=== PATIENT | female | born 1940 | race African-American/Black ===

== ENCOUNTER 2020-02-27 08:35 | Outpatient (REF) | payer MEDICARE, SELFPAY ==
[2020-02-27 10:22] LABS: MANUAL DIFF FLAG NO
[2020-02-27 10:25] LABS: Basophils Percent Auto 0.9 % (0-2); Eosinophils Absolute Auto 0.2 X10*3/uL (0.0-0.4); Eosinophils Percent Auto 3.3 % (0-4); Hematocrit 39.7 % (37-47); Hemoglobin 12.8 g/dl (12.0-16.0); Lymphocytes Absolute Auto 2.1 X10*3/uL (1.2-4.9); Lymphocytes Percent Auto 47.8 % (20-40); Mean Corpuscular HGB Conc 32.2 g/dl (31.0-35.0); Mean Corpuscular Hemoglobin 28.9 pg (27.0-33.0); Mean Corpuscular Volume 89.6 fL (80-98); Mean Platelet Volume 10.3 fL (9.4-12.3); Monocytes Absolute Auto 0.4 X10*3/uL (0.1-1.2); Monocytes Percent Auto 9.8 % (2-11); Neutrophils Absolute Auto 1.7 X10*3/uL (2.0-8.3); Neutrophils Percent Auto 38.2 % (45-73); Platelet Count 197 X10*3/uL (160-400); Red Blood Count 4.43 X10*6/uL (4.20-5.50); Red Cell Distribution Width 12.7 % (11.0-16.0); White Blood Count 4.5 X10*3/uL (4.8-10.8)
[2020-02-27 11:05] LABS: Alanine Aminotransferase 14 U/L (0-31); Albumin Level 4.1 g/dL (3.5-5.0); Alkaline Phosphatase 82 U/L (39-117); Anion Gap 13 (12-20); Aspartate Amino Transferase 12 U/L (5-31); Bilirubin Total 0.6 mg/dL (0.0-1.0); Blood Urea Nitrogen 16 mg/dL (9-16); Carbon Dioxide 26 mmol/L (22-29); Chloride 106 mmol/L (96-108); Cholesterol 125 mg/dL; Estimated Glomerular Filt Rate > 60; Glucose Fasting 109 mg/dL (60-99); HDL Cholesterol 48 mg/dL; LDL Cholesterol Calculated 67 mg/dl; Potassium 3.9 mmol/l (3.3-5.1); Sodium 141 mmol/L (135-145); Total Protein 6.9 g/dL (6.5-8.0); Triglycerides 51 mg/dL
[2020-02-27 11:25] LABS: Thyroid Stimulating Hormone 0.39 uIU/mL (0.32-4.0); Vitamin D 25-OH Total 25.4 ng/mL (>30)
[2020-02-27 11:27] LABS: Folate 12.5 ng/mL (> or = 4.0); Vitamin B12 240 pg/mL (200-900)
[2020-02-27 11:31] LABS: T4 Thyroxine 7.5 ug/dL (4.5-12.0)
== END 2020-02-27 08:36 | disposition home or self-care (01) ==
LOC: HO.10HDL 08:35
PROVIDERS: Visit Provider Internal Medicine
DX: Z00.00 Encounter for general adult medical examination without abnormal findings (principal); E11.65 Type 2 diabetes mellitus with hyperglycemia; I10 Essential (primary) hypertension; J44.9 Chronic obstructive pulmonary disease, unspecified; E78.00 Pure hypercholesterolemia, unspecified
CPT/HCPCS: 36415; 80053; 80061; 82306; 82607; 82746; 84436; 84443; 85025

== ENCOUNTER 2020-08-28 08:19 | Outpatient (REF) | payer MEDICARE, SELFPAY ==
[2020-08-28 10:12] LABS: MANUAL DIFF FLAG NO
[2020-08-28 10:15] LABS: Basophils Percent Auto 0.6 % (0-2); Eosinophils Absolute Auto 0.3 X10*3/uL (0.0-0.4); Eosinophils Percent Auto 5.7 % (0-4); Hematocrit 38.8 % (37-47); Hemoglobin 12.4 g/dl (12.0-16.0); Imm Gran Abs Auto 0.01 X10*3/uL (0.00-0.03); Imm Gran Pct Auto 0.2 % (0.0-0.4); Lymphocytes Absolute Auto 1.8 X10*3/uL (1.2-4.9); Lymphocytes Percent Auto 37.2 % (20-40); Mean Corpuscular Hemoglobin 27.8 pg (27.0-33.0); Mean Platelet Volume 10.2 fL (9.4-12.3); Monocytes Absolute Auto 0.5 X10*3/uL (0.1-1.2); Monocytes Percent Auto 10.6 % (2-11); Neutrophils Absolute Auto 2.2 X10*3/uL (2.0-8.3); Neutrophils Percent Auto 45.7 % (45-73); Platelet Count 235 X10*3/uL (160-400); Red Blood Count 4.46 X10*6/uL (4.20-5.50); Red Cell Distribution Width 13.2 % (11.0-16.0); White Blood Count 4.7 X10*3/uL (4.8-10.8)
[2020-08-28 10:22] LABS: Estimated Average Glucose 140 mg/dL; Hemoglobin A1c % 6.5 %
[2020-08-28 10:44] LABS: Alanine Aminotransferase 9 U/L (0-31); Alkaline Phosphatase 90 U/L (39-117); Anion Gap 16 (12-20); Aspartate Amino Transferase 13 U/L (5-31); Bilirubin Total 0.7 mg/dL (0.0-1.0); Blood Urea Nitrogen 14 mg/dL (9-16); Calcium 9.9 mg/dL (8.4-10.2); Carbon Dioxide 25 mmol/L (22-29); Chloride 104 mmol/L (96-108); Cholesterol 113 mg/dL; Estimated Glomerular Filt Rate > 60; Glucose Random 119 mg/dL (60-115); HDL Cholesterol 37 mg/dL; LDL Cholesterol Calculated 64 mg/dl; Potassium 4.3 mmol/L (3.3-5.1); Sodium 141 mmol/L (135-145); Total Protein 7.4 g/dL (6.5-8.0); Triglycerides 60 mg/dL
[2020-08-28 11:05] LABS: Free T4 (Free Thyroxine) 1.15 ng/dL (0.71-1.85); Thyroid Stimulating Hormone 0.39 uIU/mL (0.32-4.0); Vitamin D 25-OH Total 27.4 ng/mL (>30)
[2020-08-28 11:18] LABS: Vitamin B12 271 pg/mL (200-900)
== END 2020-08-28 08:20 | disposition home or self-care (01) ==
LOC: HO.10HDL 08:19
PROVIDERS: Visit Provider Internal Medicine
DX: E11.65 Type 2 diabetes mellitus with hyperglycemia (principal); E78.00 Pure hypercholesterolemia, unspecified
CPT/HCPCS: 36415; 80053; 80061; 82306; 82607; 82746; 83036; 84439; 84443; 85025

== ENCOUNTER 2021-09-04 07:29 | Outpatient (REF) | payer MEDICARE, SELFPAY ==
[2021-09-04 10:49] LABS: MANUAL DIFF FLAG NO
[2021-09-04 10:52] LABS: Basophils Absolute Auto 0.1 X10*3/uL (0.0-0.2); Basophils Percent Auto 0.8 % (0-2); Eosinophils Absolute Auto 0.2 X10*3/uL (0.0-0.4); Eosinophils Percent Auto 4.1 % (0-4); Hematocrit 40.4 % (37.0-47.0); Hemoglobin 12.5 g/dl (12.0-16.0); Imm Gran Abs Auto 0.02 X10*3/uL (0.00-0.03); Imm Gran Pct Auto 0.3 % (0.0-0.4); Lymphocytes Absolute Auto 2.2 X10*3/uL (1.2-4.9); Mean Corpuscular HGB Conc 30.9 g/dl (31.0-35.0); Mean Corpuscular Hemoglobin 27.4 pg (27.0-33.0); Mean Corpuscular Volume 88.6 fL (80.0-98.0); Monocytes Absolute Auto 0.6 X10*3/uL (0.1-1.2); Monocytes Percent Auto 9.5 % (2-11); Neutrophils Absolute Auto 2.8 x10*3/uL (2.0-8.3); Neutrophils Percent Auto 48.3 % (45-73); Platelet Count 255 X10*3/uL (160-400); Red Blood Count 4.56 X10*6/uL (4.20-5.50); Red Cell Distribution Width 13.2 % (11.0-16.0); White Blood Count 5.9 X10*3/uL (4.8-10.8)
[2021-09-04 11:20] LABS: Estimated Average Glucose 140 mg/dL; Hemoglobin A1c % 6.5 %
[2021-09-04 11:25] LABS: Alanine Aminotransferase 11 U/L (0-31); Alkaline Phosphatase 95 U/L (39-117); Anion Gap 14 (12-20); Aspartate Amino Transferase 12 U/L (5-31); Bilirubin Total 0.6 mg/dL (0.0-1.0); Blood Urea Nitrogen 20 mg/dL (9-16); Calcium 9.7 mg/dL (8.4-10.2); Carbon Dioxide 26 mmol/L (22-29); Chloride 105 mmol/L (96-108); Cholesterol 115 mg/dL; Estimated Glomerular Filt Rate > 60; Glucose Random 124 mg/dL (60-115); HDL Cholesterol 34 mg/dL; LDL Cholesterol Calculated 72 mg/dl; Potassium 4.5 mmol/L (3.3-5.1); Sodium 140 mmol/L (135-145); Total Protein 7.2 g/dL (6.5-8.0); Triglycerides 47 mg/dL
[2021-09-04 11:35] LABS: Free T4 (Free Thyroxine) 1.23 ng/dL (0.71-1.85); Thyroid Stimulating Hormone 0.77 uIU/mL (0.32-4.0); Vitamin D 25-OH Total 22.8 ng/mL (>30)
[2021-09-04 11:43] LABS: Folate 8.2 ng/mL (> or = 4.0); Vitamin B12 248 pg/mL (200-900)
[2021-09-04 11:49] LABS: Creatinine Urine 184.98 mg/dL; Microalbum/Creatinine Ratio Ur 15.1 ug/mg cr
== END 2021-09-04 07:30 | disposition home or self-care (01) ==
LOC: HO.10HDL 07:29
PROVIDERS: Visit Provider Internal Medicine
DX: E11.65 Type 2 diabetes mellitus with hyperglycemia (principal); E78.00 Pure hypercholesterolemia, unspecified
CPT/HCPCS: 36415; 80053; 80061; 82043; 82306; 82607; 82746; 83036; 84439; 84443; 85025

== ENCOUNTER 2022-07-14 09:49 | Outpatient (REF) | payer MEDICARE, SELFPAY ==
[2022-07-14 11:06] LABS: Creatinine Urine 109.84 mg/dL
== END 2022-07-14 09:50 | disposition home or self-care (01) ==
LOC: HO.10HDL 09:49
PROVIDERS: Visit Provider Internal Medicine
DX: Z13.89 Encounter for screening for other disorder (principal)

== ENCOUNTER 2022-09-28 09:24 | Outpatient (REF) | payer MEDICARE, SELFPAY ==
[2022-09-28 11:05] LABS: MANUAL DIFF FLAG NO
[2022-09-28 11:09] LABS: Basophils Percent Auto 0.5 % (0-2); Eosinophils Absolute Auto 0.1 X10*3/uL (0.0-0.4); Eosinophils Percent Auto 2.5 % (0-4); Hematocrit 43.7 % (37.0-47.0); Hemoglobin 13.8 g/dl (12.0-16.0); Imm Gran Abs Auto 0.01 X10*3/uL (0.00-0.03); Imm Gran Pct Auto 0.2 % (0.0-0.4); Lymphocytes Absolute Auto 2.6 X10*3/uL (1.2-4.9); Lymphocytes Percent Auto 46.5 % (20-40); Mean Corpuscular HGB Conc 31.6 g/dl (31.0-35.0); Mean Corpuscular Hemoglobin 28.3 pg (27.0-33.0); Mean Corpuscular Volume 89.7 fL (80.0-98.0); Mean Platelet Volume 10.7 fL (9.4-12.3); Monocytes Absolute Auto 0.5 X10*3/uL (0.1-1.2); Monocytes Percent Auto 9.3 % (2-11); Neutrophils Absolute Auto 2.3 x10*3/uL (2.0-8.3); Platelet Count 219 X10*3/uL (160-400); Red Blood Count 4.87 X10*6/uL (4.20-5.50); Red Cell Distribution Width 13.1 % (11.0-16.0); White Blood Count 5.5 X10*3/uL (4.8-10.8)
[2022-09-28 11:42] LABS: Creatinine Urine 38.28 mg/dL; Microalbum/Creatinine Ratio Ur 65.3 ug/mg cr
[2022-09-28 11:44] LABS: Estimated Average Glucose 137 mg/dL; Hemoglobin A1c % 6.4 %
[2022-09-28 12:07] LABS: Alanine Aminotransferase 16 U/L (0-31); Albumin Level 4.2 g/dL (3.5-5.0); Alkaline Phosphatase 73 U/L (39-117); Anion Gap 13 (12-20); Aspartate Amino Transferase 18 U/L (5-31); Bilirubin Total 0.8 mg/dL (0.0-1.0); Blood Urea Nitrogen 15 mg/dL (9-16); Calcium 10.7 mg/dL (8.4-10.2); Carbon Dioxide 29 mmol/L (22-29); Chloride 104 mmol/L (96-108); Cholesterol 126 mg/dL; Estimated Glomerular Filt Rate 54; Glucose Random 128 mg/dL (60-115); HDL Cholesterol 47 mg/dL; LDL Cholesterol Calculated 68 mg/dl; Potassium 4.9 mmol/L (3.3-5.1); Sodium 141 mmol/L (135-145); Total Protein 7.7 g/dL (6.5-8.0); Triglycerides 59 mg/dL
[2022-09-28 12:27] LABS: Free T4 (Free Thyroxine) 1.01 ng/dL (0.71-1.85); Thyroid Stimulating Hormone 0.86 uIU/mL (0.32-4.0); Vitamin D 25-OH Total 78.7 ng/mL (>30)
[2022-09-28 12:31] LABS: Folate 12.3 ng/mL (> or = 4.0); Vitamin B12 326 pg/mL (200-900)
== END 2022-09-28 09:25 | disposition home or self-care (01) ==
LOC: HO.10HDL 09:24
PROVIDERS: Visit Provider Internal Medicine
DX: E11.65 Type 2 diabetes mellitus with hyperglycemia (principal); E78.00 Pure hypercholesterolemia, unspecified; E55.9 Vitamin D deficiency, unspecified
CPT/HCPCS: 36415; 80053; 80061; 82043; 82306; 82607; 82746; 83036; 84439; 84443; 85025

== ENCOUNTER 2022-10-29 09:22 | Outpatient (AMB) | payer MEDICARE, SELFPAY ==
[2022-10-29 09:23] VITALS: BP 108/78; PULSE 82; O2SAT 92; BMI 29.6
--- NOTE | 2022-10-29 09:23 | A.OFFPC_ITS ---
Vital Signs 10/29/22 09:23 10/29/22 09:53 Height 5 ft 3 in Weight 167 lb BMI 29.6 BP 108/78 130/70 Blood Pressure Location Lt brachial Lt brachial Position Sitting Sitting Pulse 82 Pulse Source Pulse Oximeter Temp Source Skin Pulse Oximetry (%) 92 Oxygen Delivery Method Room Air Intake Visit Reasons: DM [place] Captain Required: No Allergies lisinopril Allergy (Unknown, Verified 10/29/22 09:24) creatinine increase Tobacco use date assessed: 10/29/22 Fall risk assessment: No Falls in past year Last assessed Fall Risk: 10/29/22 Dental Screening Dental Screen Date: 10/29/22 Did you have a dental visit in the last 12 months?: No Did you have a dental problem in the last 6 months where you did not have access to dental care?: No HPI DM HPI Details 82-year-old female with controlled diabe jessica mellitus COPD hypertension hypercholesterolemia last seen in June 2022 patient is here for follow-up last blood work was done in September 2022. Cologuard test up-to-date December 2021. noted hypercalcemia- admits to taking protein drinks - noted proteinuria?? [facility] Medical History (Updated 10/29/22 @ 09:49 by Rlel Kasper MD) Obesity (BMI 30-39.9) Overweight (BMI 25.0-29.9) Hypercholesterolemia COPD (chronic obstructive pulmonary disease) Type 2 diabetes mellitus with hyperglycemia Surgical History No pertinent past surgical history Family History (Updated 07/15/22 @ 09:48 by Tish Garcia CMA) Family/Other Medical history unknown Social History Housing: House Alcohol intake: never Patient Tobacco Use Status: Former Tobacco user Tobacco use type: Cigarette e-Cigarette/Vaping Use: Never Used Second Hand Smoke Exposure: Yes service: No Current occupational status: retired Cognitive needs: No Hearing needs: No Vision needs: Yes Questionnaire Thrive Questionnaire Date Thrive assessed: 03/31/22 AUDIT C Alcohol Use Questionnaire (AUDIT-C) 1. How often do you have a drink containing alcohol?: Monthly or less 2. How many drinks containing alcohol do you have on a typical day when you are drinking?: 1 or 2 3. How often do you have six or more drinks on one occasion?: Never Total Score: 1 AIMEE-7 AMB Questionnaire AIMEE-7 Date AIMEE - 7 assessed: 03/31/22 Source: Developed by Drs. Cristhian Hills, Keysha Dave, Nick Faria and colleagues, with an educational tracey from [employer]. Physical exam (Primary Care) Vital Signs: Last Vital Signs Pulse 82 10/29/22 09:23 BP 108/78 10/29/22 09:23 Pulse Ox 92 10/29/22 09:23 Oxygen Delivery Method Room Air 10/29/22 09:23 BMI result Body Mass Index 29.6 Tobacco/Smoking Status: Tobacco use Status Tobacco use date assessed 10/29/22 10/29/22 09:24 Patient Tobacco Use Status Former Tobacco user 10/29/22 09:24 Tobacco use type Cigarette 10/29/22 09:24 e-Cigarette/Vaping Use Never Used 10/29/22 09:24 Thrive Assessment: Date of Thrive Assessment Date Thrive assessed 03/31/22 10/29/22 09:24 Const General: alert; No acute distress Eyes Conjunctivae: conjunctivae normal Resp Auscultation: clear to auscultation bilaterally Cardio Rate: regular rate Rhythm: regular rhythm GI Inspection: Yes normal to inspection Extrem General: Yes normal to inspection and No edema Assessment and Plan Assessment & Plan (1) Type 2 diabetes mellitus with hyperglycemia: Comment: Dr. Green Code(s): E11.65 - Type 2 diabetes mellitus with hyperglycemia Qualifiers: Diabetes mellitus alf insulin use: without production officer use Josue lified Code(s): E11.65 - Type 2 diabetes mellitus with hyperglycemia Plan: Decrease the amount of carbohydrate intake, pasta, bread, rice and potatoes are all sugar and that is aside from all the sweet stuff, remember that fruits are good but they are Sweet also. Hemoglobin A1c goal of less than 7.0 patient is on metformin 500 twice a day (2) Hypertension: Code(s): I10 - Essential (primary) hypertension Qualifiers: Hypertension type: essential hypertension Qualified Code(s): I10 - Essential (primary) hypertension Plan: Continue with blood pressure medication. Decrease salt intake and exercise patient is on metoprolol 100 mg once a day nifedipine 60 mg once a day hydrochlorothiazide 12.5 mg once a day (3) COPD (chronic obstructive pulmonary disease): Code(s): J44.9 - Chronic obstructive pulmonary disease, unspecified Qualifiers: COPD type: emphysema Emphysema type: unspecified Qualified Code(s): J43.9 - Emphysema, unspecified Plan: Continue with Advair and albuterol as needed (4) Hypercholesterolemia: Code(s): E78.00 - Pure hypercholesterolemia, unspecified Plan: Avoid fried foods, chicken skin, eggs, butter margarine, pastries and meat. Be it pork or beef they have a lot of cholesterol LDL goal of less than 100. Patient is on atorvastatin 40 mg once a day September 2022 last blood work (5) Hypercalcemia: Code(s): E83.52 - Hypercalcemia Plan: Concern about calcium being elevated will stop the vitamin-D and retest. (6) Overweight (BMI 25.0-29.9): Code(s): E66.3 - Overweight Plan: Continue with diet and exercise Orders: Orders Comprehensive Met. 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
[2022-10-29 09:53] VITALS: BP 130/70
== END 2022-10-29 10:02 | disposition home or self-care (01) ==
PROVIDERS: PCP Internal Medicine; Visit Provider Internal Medicine
DX: E11.65 Type 2 diabetes mellitus with hyperglycemia (principal); I10 Essential (primary) hypertension; J43.9 Emphysema, unspecified; E83.52 Hypercalcemia; E78.00 Pure hypercholesterolemia, unspecified; E66.3 Overweight
CPT/HCPCS: 99214

== ENCOUNTER 2023-02-04 09:31 | Outpatient (REF) | payer MEDICARE, SELFPAY ==
[2023-02-04 10:53] LABS: Alanine Aminotransferase 12 U/L (0-31); Alkaline Phosphatase 85 U/L (39-117); Anion Gap 13 (12-20); Aspartate Amino Transferase 12 U/L (5-31); Bilirubin Total 0.6 mg/dL (0.0-1.0); Blood Urea Nitrogen 24 mg/dL (9-16); Carbon Dioxide 28 mmol/L (22-29); Chloride 102 mmol/L (96-108); Estimated Glomerular Filt Rate 47; Glucose Random 124 mg/dL (60-115); Potassium 4.3 mmol/L (3.3-5.1); Sodium 139 mmol/L (135-145); Total Protein 7.4 g/dL (6.5-8.0)
== END 2023-02-04 09:32 | disposition home or self-care (01) ==
LOC: HO.10HDL 09:31
PROVIDERS: Visit Provider Internal Medicine
DX: E83.52 Hypercalcemia (principal)
CPT/HCPCS: 36415; 80053

== ENCOUNTER 2023-02-09 09:47 | Outpatient (AMB) | payer MEDICARE, SELFPAY ==
[2023-02-09 09:50] VITALS: BP 148/82; PULSE 81; O2SAT 91; BMI 29.8
--- NOTE | 2023-02-09 09:50 | A.OFFPC_ITS ---
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 Allergies lisinopril Allergy (Unknown, Verified 02/09/23 09:51) creatinine increase Medication List - Last Reconciled 02/09/23 by Rell Kasper MD albuterol sulfate 90 mcg/actuation (ProAir HFA) 2 puffs inhalation Q6H PRN atorvastatin 40 mg PO BEDTIME cholecalciferol (vitamin D3) 25 mcg PO DAILY fluticasone propion-salmeterol 250-50 mcg/dose (Advair Diskus) 1 inh inhalation BID hydrochlorothiazide 12.5 mg PO DAILY 30 days metformin 500 mg PO BID metoprolol succinate ER 100 mg PO DAILY nifedipine ER 60 mg PO DAILY 30 days Tobacco use date assessed: 02/09/23 Fall risk assessment: No Falls in past year Last assessed Fall Risk: 02/09/23 HPI DM HPI Details 82-year-old overweight female with contr olled diabetes mellitus hypertension hypercholesterolemia COPD coming in for follow-up. Last seen in October 2022. Blood pressure elevation just for this time advised patient to monitor for now will see next time patient on 3 blood pressure medication. Patient has been a having a cough for the last 3 more weeks discussed that it is getting better discussion also about cough medication for productive cough advised take Mucinex only 600 mg twice a day but for dry cough though Delsym. No fever states getting better. [facility] Medical History (Updated 02/09/23 @ 10:14 by Rell Kasper MD) Obesity (BMI 30-39.9) Overweight (BMI 25.0-29.9) Hypercholesterolemia COPD (chronic obstructive pulmonary disease) Type 2 diabetes mellitus with hyperglycemia Surgical History (System 11/26/22 @ 15:06 by Ashwini Espinoza) No pertinent past surgical history Family History (System 11/26/22 @ 15:06 by Ashwini Espinoza) Family/Other Medical history unknown Social History (System 11/26/22 @ 15:06 by Ashwini Espinoza) Housing: House Alcohol intake: never Patient Tobacco Use Status: Former Tobacco user Tobacco use type: Cigarette e-Cigarette/Vaping Use: Never Used Second Hand Smoke Exposure: Yes service: No Current occupational status: retired Cognitive needs: No Hearing needs: No Vision needs: Yes Questionnaire Thrive Questionnaire Date Thrive assessed: 03/31/22 AUDIT C Alcohol Use Questionnaire (AUDIT-C) 1. How often do you have a drink containing alcohol?: Monthly or less 2. How many drinks containing alcohol do you have on a typical day when you are drinking?: 1 or 2 3. How often do you have six or more drinks on one occasion?: Never Total Score: 1 AIMEE-7 AMB Questionnaire AIMEE-7 Date AIMEE - 7 assessed: 03/31/22 Source: Developed by Drs. Cristhian Hills, Keysha Dave, Nick Faria and colleagues, with an educational tracey from [employer]. Physical exam (Primary Care) Vital Signs: Last Vital Signs Pulse 81 02/09/23 09:50 BP 148/82 H 02/09/23 09:50 Pulse Ox 91 L 02/09/23 09:50 Oxygen Delivery Method Room Air 02/09/23 09:50 BMI result Body Mass Index 29.8 Tobacco/Smoking Status: Tobacco use Status Tobacco use date assessed 02/09/23 02/09/23 09:51 Patient Tobacco Use Status Former Tobacco user 02/09/23 09:51 Tobacco use type Cigarette 02/09/23 09:51 e-Cigarette/Vaping Use Never Used 02/09/23 09:51 Thrive Assessment: Date of Thrive Assessment Date Thrive assessed 03/31/22 02/09/23 09:51 Const General: alert; No acute distress Eyes Conjunctivae: conjunctivae normal Resp Other: Right lower lung field with mild crackles Cardio Rate: regular rate Rhythm: regular rhythm GI Inspection: Yes normal to inspection Extrem General: Yes normal to inspection and No edema Results AMB Hemoglobin A1c AMB Hemoglobin A1c 6.6 % Last Edit by AMY Hopson on 02/09/23 10:06 Assessment and Plan Assessment & Plan (1) Type 2 diabetes mellitus with hyperglycemia: Comment: Dr. Green Code(s): E11.65 - Type 2 diabetes mellitus with hyperglycemia Qualifiers: Diabetes mellitus residential insulin use: without residential use Qualified Code(s): E11.65 - Type 2 diabetes mellitus with hyperglycemia Plan: Decrease the amount of carbohydrate intake, pasta, bread, rice and potatoes are all sugar and that is aside from all the sweet stuff, remember that fruits are good but they are Sweet also. Hemoglobin A1c goal of less than 7.0 patient on metformin 500 mg twice a day continue with present medication (2) Hypertension: Code(s): I10 - Essential (primary) hypertension Qualifiers: Hypertension type: essential hypertension Qualified Code(s): I10 - Essential (primary) hypertension Plan: Continue with blood pressure medication. Decrease salt intake and exercise patient on metoprolol 100 mg once a day hydrochlorothiazide 12.5 mg once a day nifedipine 60 mg once a day. Blood pressure elevated this time advised to continue monitoring will see next time. (3) Hypercholesterolemia: Code(s): E78.00 - Pure hypercholesterolemia, unspecified Plan: Avoid fried foods, chicken skin, eggs, butter margarine, pastries and meat. Be it pork or beef they have a lot of cholesterol LDL goal of less than 100 and triglyceride of less than 150 patient taking atorvastatin 40 mg once a day (4) Hypercalcemia: Code(s): E83.52 - Hypercalcemia Plan: Resolved on repeat testing (5) Upper respiratory tract infection: Code(s): J06.9 - Acute upper respiratory infection, unspecified Plan: Resolving will continue to monitor. Discussed with the patient that if the cough continues to go on we will need to get a chest x-ray. Orders: Orders AMB Hemoglobin A1c Today E11.65 - Type 2 diabetes mellitus with hyperglycemia Coding Level of Care Code Est Pt Level 4 (46164) Diagnoses Type 2 diabetes mellitus with hyperglycemia, without long-term current use of insulin E11.65 Diabetes mellitus rat exterminator insulin use: without residential use Essential hypertension I10 Hypertension type: essential hypertension Hypercholesterolemia E78.00 Hypercalcemia E83.52 Upper respiratory tract infection J06.9
== END 2023-02-09 10:20 | disposition home or self-care (01) ==
PROVIDERS: PCP Internal Medicine; Visit Provider Internal Medicine
DX: E11.65 Type 2 diabetes mellitus with hyperglycemia (principal); I10 Essential (primary) hypertension; E78.00 Pure hypercholesterolemia, unspecified; E83.52 Hypercalcemia; J06.9 Acute upper respiratory infection, unspecified; Z23 Encounter for immunization
CPT/HCPCS: 83036; 90471; 90686; 99214

== ENCOUNTER 2023-05-17 09:33 | Outpatient (AMB) | payer MEDICARE, SELFPAY ==
[2023-05-17 09:34] VITALS: BP 130/68; PULSE 84; O2SAT 94; BMI 29.6
--- NOTE | 2023-05-17 09:34 | A.OFFPC_ITS ---
Vital Signs 05/17/23 09:34 Height 5 ft 3 in Weight 167 lb 0.4 oz BMI 29.6 BP 130/68 Blood Pressure Location Lt brachial Position Sitting Pulse 84 Pulse Source Pulse Oximeter Pulse Oximetry (%) 94 Oxygen Delivery Method Room Air Intake Visit Reasons: 3 month f/u Bundle Shaker Required: No Allergies lisinopril Allergy (Unknown, Verified 02/09/23 09:51) creatinine increase Medication List - Last Reconciled 05/17/23 by Rell Kasper MD albuterol sulfate 90 mcg/actuation (ProAir HFA) 2 puffs inhalation Q6H PRN atorvastatin 40 mg PO BEDTIME cholecalciferol (vitamin D3) 25 mcg PO DAILY fluticasone propion-salmeterol 250-50 mcg/dose (Advair Diskus) 1 inh inhalation BID hydrochlorothiazide 12.5 mg PO DAILY 30 days metformin 500 mg PO BID metoprolol succinate ER 100 mg PO DAILY nifedipine ER 60 mg PO DAILY 30 days Tobacco use date assessed: 05/17/23 Fall risk assessment: No Falls in past year Last assessed Fall Risk: 05/17/23 HPI 3 month f/u HPI Details 82-year-old overweight female with diabe jessica mellitus controlled hypertension hypercholesterolemia coming in for follow-up. Last seen in January 2023. no n no v no fever. 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 [facility] Medical History (Updated 02/09/23 @ 10:14 by Rell Kasper MD) Obesity (BMI 30-39.9) Overweight (BMI 25.0-29.9) Hypercholesterolemia COPD (chronic obstructive pulmonary disease) Type 2 diabetes mellitus with hyperglycemia Surgical History (System 11/26/22 @ 15:06 by Ashwini Espinoza) No pertinent past surgical history Family History (System 11/26/22 @ 15:06 by Ashwini Espinoza) Family/Other Medical history unknown Social History (System 11/26/22 @ 15:06 by Ashwini Espinoza) Housing: House Alcohol intake: never Patient Tobacco Use Status: Former Tobacco user Tobacco use type: Cigarette e-Cigarette/Vaping Use: Never Used Second Hand Smoke Exposure: Yes service: No Current occupational status: retired Cognitive needs: No Hearing needs: No Vision needs: Yes Questionnaire Thrive Questionnaire Date Thrive assessed: 05/17/23 I am a: Patient What is your living situation today?: I have a steady place to live Within the past 12 months, did the food you bought not last and you didn't have the money to get more?: Never true Within the past 12 months, did you worry whether your food would run out before you got money to buy more?: Never true Do you have trouble paying for medicines?: No Do you have trouble getting transportation to medical appointments?: No Do you have trouble paying your heating and electricity bill?: No Do you have trouble taking care of your child, family member or friend?: No Do you have trouble with day-to-day activities such as bathing, preparing meals, shopping, managing finances, etc.?: No Are you currently unemployed and looking for a job?: No Are you interested in more education?: No Please select the resources that you would like help with: None Currently or been in a relationship where the following occur: no concerns reported THRIVE Score: 0 AUDIT C Alcohol Use Questionnaire (AUDIT-C) 1. How often do you have a drink containing alcohol?: Monthly or less 2. How many drinks containing alcohol do you have on a typical day when you are drinking?: 1 or 2 3. How often do you have six or more drinks on one occasion?: Never Total Score: 1 AIMEE-7 AMB Questionnaire AIMEE-7 Date AIMEE - 7 assessed: 05/17/23 Source: Developed by Drs. Cristhian Hills, Keysha Dave, Nick Faria and colleagues, with an educational tracey from [employer]. Physical exam (Primary Care) Vital Signs: Last Vital Signs Pulse 84 05/17/23 09:34 BP 130/68 05/17/23 09:34 Pulse Ox 94 05/17/23 09:34 Oxygen Delivery Method Room Air 05/17/23 09:34 BMI result Body Mass Index 29.6 Tobacco/Smoking Status: Tobacco use Status Tobacco use date assessed 05/17/23 05/17/23 09:41 Patient Tobacco Use Status Former Tobacco user 05/17/23 09:41 Tobacco use type Cigarette 05/17/23 09:41 e-Cigarette/Vaping Use Never Used 05/17/23 09:41 Thrive Assessment: Date of Thrive Assessment Date Thrive assessed 05/17/23 05/17/23 09:42 Currently or been in a relationship where the following occur: no concerns reported Const General: alert; No acute distress Eyes Conjunctivae: conjunctivae normal Resp Auscultation: clear to auscultation bilaterally Cardio Rate: regular rate Rhythm: regular rhythm GI Inspection: Yes normal to inspection Extrem General: Yes normal to inspection and No edema Results AMB Hemoglobin A1c AMB Hemoglobin A1c 6.5 % Last Edit by AMY Hopson on 05/17/23 09:49 Results Reviewed Results Reviewed: Laboratory Last Values Hgb A1c (Clinic) 6.5 % (4.0-6.0) H 05/17/23 09:11 Assessment and Plan Assessment & Plan (1) Type 2 diabetes mellitus with hyperglycemia: Comment: Dr. 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 Hemoglobin A1c goal of less than 7.0 patient takes metformin 500 mg twice a day (2) Hypertension: Code(s): I10 - Essential (primary) hypertension Qualifiers: Hypertension type: essential hypertension Qualified Code(s): I10 - Essential (primary) hypertension Plan: Continue with blood pressure medication. Decrease salt intake and exercise presently on hydrochlorothiazide 12.5 mg once a day and nifedipine 60 mg once a day metoprolol succinate 100 mg once a day (3) Hypercholesterolemia: Code(s): E78.00 - Pure hypercholesterolemia, unspecified Plan: Avoid fried foods, chicken skin, eggs, butter margarine, pastries and meat. Be it pork or beef they have a lot of cholesterol LDL goal of less than 100 and triglyceride of less than 150 on atorvastatin 40 mg once a day (4) COPD (chronic obstructive pulmonary disease): Code(s): J44.9 - Chronic obstructive pulmonary disease, unspecified Qualifiers: COPD type: emphysema Emphysema type: unspecified Qualified Code(s): J43.9 - Emphysema, unspecified Plan: Continue with albuterol inhaler and Advair. (5) Overweight (BMI 25.0-29.9): Code(s): E66.3 - Overweight Plan: Diet and exercise Orders: Orders AMB Hemoglobin A1c Today E11.65 - Type 2 diabetes mellitus with hyperglycemia Medications: Refilled metoprolol succinate ER 100 mg PO DAILY 90 tabs 2RF atorvastatin 40 mg PO BEDTIME 90 tabs 4RF Coding Level of Care Code Est Pt Level 4 (44845) Diagnoses Type 2 diabetes mellitus with hyperglycemia, without long-term current use of insulin E11.65 Diabetes mellitus terminal operations supervisor insulin use: without terminal operations supervisor use Essential hypertension I10 Hypertension type: essential hypertension Hypercholesterolemia E78.00 Pulmonary emphysema, unspecified emphysema type J43.9 COPD type: emphysema Emphysema type: unspecified Overweight (BMI 25.0-29.9) E66.3
== END 2023-05-17 09:53 | disposition home or self-care (01) ==
PROVIDERS: PCP Internal Medicine; Visit Provider Internal Medicine
DX: E11.65 Type 2 diabetes mellitus with hyperglycemia (principal); I10 Essential (primary) hypertension; E78.00 Pure hypercholesterolemia, unspecified; J43.9 Emphysema, unspecified; E66.3 Overweight
CPT/HCPCS: 83036; 99214

== ENCOUNTER 2023-09-16 10:15 | Outpatient (AMB) | payer MEDICARE, SELFPAY ==
[2023-09-16 10:20] VITALS: BP 130/82; PULSE 77; O2SAT 94; BMI 29.6
--- NOTE | 2023-09-16 10:20 | A.OFFPC_ITS ---
Vital Signs 09/16/23 10:20 Height 5 ft 3 in Weight 167 lb BMI 29.6 BP 130/82 Blood Pressure Location Lt brachial Position Sitting Pulse 77 Pulse Source Pulse Oximeter Pulse Oximetry (%) 94 Oxygen Delivery Method Room Air Intake Visit Reasons: Hypercholesterolemia, diabetes mellitus Allergies lisinopril Allergy (Unknown, Verified 02/09/23 09:51) creatinine increase Medication List - Last Reconciled 09/16/23 by Rell Kasper MD albuterol sulfate 90 mcg/actuation 2 puffs inhalation Q6H PRN atorvastatin 40 mg PO BEDTIME cholecalciferol (vitamin D3) 25 mcg PO DAILY fluticasone propion-salmeterol 250-50 mcg/dose (Advair Diskus) 1 inh inhalation BID hydrochlorothiazide 12.5 mg PO DAILY 90 days metformin 500 mg PO BID metoprolol succinate ER 100 mg PO DAILY nifedipine ER 60 mg PO DAILY 30 days Tobacco use date assessed: 05/17/23 Fall risk assessment: No Falls in past year Last assessed Fall Risk: 09/16/23 Dental Screening Dental Screen Date: 10/29/22 HPI Hypercholesterolemia, diabetes mellitus HPI Details 83-year-old overweight female with contr olled diabetes mellitus hyperte nsion hypercholesterolemia COPD last seen in April 2023. [facility] Medical History (Updated 09/16/23 @ 10:52 by Rell Kasper MD) Obesity (BMI 30-39.9) Overweight (BMI 25.0-29.9) Hypercholesterolemia COPD (chronic obstructive pulmonary disease) Type 2 diabetes mellitus with hyperglycemia Surgical History (System 11/26/22 @ 15:06 by Ashwini Espinoza) No pertinent past surgical history Family History (System 11/26/22 @ 15:06 by Ashwini Espinoza) Family/Other Medical history unknown Social History (System 11/26/22 @ 15:06 by Ashwini Espinoza) Housing: House Alcohol intake: never Patient Tobacco Use Status: Former Tobacco user Tobacco use type: Cigarette e-Cigarette/Vaping Use: Never Used Second Hand Smoke Exposure: Yes service: No Current occupational status: retired Cognitive needs: No Hearing needs: No Vision needs: Yes Questionnaire Thrive Questionnaire Date Thrive assessed: 05/17/23 I am a: Patient What is your living situation today?: I have a steady place to live Within the past 12 months, did the food you bought not last and you didn't have the money to get more?: Never true Within the past 12 months, did you worry whether your food would run out before you got money to buy more?: Never true Do you have trouble paying for medicines?: No Do you have trouble getting transportation to medical appointments?: No Do you have trouble paying your heating and electricity bill?: No Do you have trouble taking care of your child, family member or friend?: No Do you have trouble with day-to-day activities such as bathing, preparing meals, shopping, managing finances, etc.?: No Are you currently unemployed and looking for a job?: No Are you interested in more education?: No Please select the resources that you would like help with: None THRIVE Score: 0 AUDIT C Alcohol Use Questionnaire (AUDIT-C) 1. How often do you have a drink containing alcohol?: Monthly or less 2. How many drinks containing alcohol do you have on a typical day when you are drinking?: 1 or 2 3. How often do you have six or more drinks on one occasion?: Never Total Score: 1 AIMEE-7 AMB Questionnaire AIMEE-7 Date AIMEE - 7 assessed: 05/17/23 Source: Developed by Drs. Cristhian Hills, Keysha Dave, Nick Faria and colleagues, with an educational tracey from [employer]. Physical exam (Primary Care) Vital Signs: Last Vital Signs Pulse 77 09/16/23 10:20 BP 130/82 09/16/23 10:20 Pulse Ox 94 09/16/23 10:20 Oxygen Delivery Method Room Air 09/16/23 10:20 BMI result Body Mass Index 29.6 Tobacco/Smoking Status: Tobacco use Status Tobacco use date assessed 05/17/23 09/16/23 10:20 Patient Tobacco Use Status Former Tobacco user 09/16/23 10:20 Tobacco use type Cigarette 09/16/23 10:20 e-Cigarette/Vaping Use Never Used 09/16/23 10:20 Thrive Assessment: Date of Thrive Assessment Date Thrive assessed 05/17/23 09/16/23 10:20 Const General: alert; No acute distress Eyes Conjunctivae: conjunctivae normal Resp Auscultation: clear to auscultation bilaterally Cardio Rate: regular rate Rhythm: regular rhythm GI Inspection: Yes normal to inspection Extrem General: Yes normal to inspection and No edema Results AMB Hemoglobin A1c AMB Hemoglobin A1c 6.2 % Last Edit by AMY Hopson on 09/16/23 10:39 Results Reviewed Results Reviewed: Laboratory Last Values Hgb A1c (Clinic) 6.2 % (4.0-6.0) H 09/16/23 08:47 Assessment and Plan Assessment & Plan (1) Overweight (BMI 25.0-29.9): Code(s): E66.3 - Overweight Plan: Diet and exercise (2) Type 2 diabetes mellitus with hyperglycemia: Comment: Dr. Green Code(s): E11.65 - Type 2 diabetes mellitus with hyperglycemia Qualifiers: Diabetes mellitus watermelon inspector insulin use: without watermelon inspector use Qualified Code(s): E11.65 - Type 2 diabetes mellitus with hyperglycemia Plan: Decrease the amount of carbohydrate intake, pasta, bread, rice and potatoes are all sugar and that is aside from all the sweet stuff, remember that fruits are good but they are Sweet also. Hemoglobin A1c goal of less than 7.0 on metformin 500 mg twice a day (3) Hypertension: Code(s): I10 - Essential (primary) hypertension Qualifiers: Hypertension type: essential hypertension Qualified Code(s): I10 - Essential (primary) hypertension Plan: Continue with blood pressure medication. Decrease salt intake and exercise metoprolol 100 mg once a day nifedipine 60 mg once a day (4) COPD (chronic obstructive pulmonary disease): Code(s): J44.9 - Chronic obstructive pulmonary disease, unspecified Qualifiers: COPD type: emphysema Emphysema type: unspecified Qualified Code(s): J43.9 - Emphysema, unspecified Plan: Continue with inhaler as needed and Advair to use regularly and rinse mouth after using it (5) Hypercholesterolemia: Code(s): E78.00 - Pure hypercholesterolemia, unspecified Plan: Avoid fried foods, chicken skin, eggs, butter margarine, pastries and meat. Be it pork or beef they have a lot of cholesterol LDL goal of less than 100 and triglyceride of less than 150. 10/10/2022 last blood (6) Peripheral vascular disease: Code(s): I73.9 - Peripheral vascular disease, unspecified Plan: When sitting down elevate the legs, exercise, and support stockings. Discussed with the patient that nifedipine can cause the swelling and offered change to an ARB but patient declined. Description for support stockings sent to the patient. Orders: Orders Free T4 (Free Thyroxine) 3 Months E11.65 - Type 2 diabetes mellitus with hyperglycemia Thyroid Stimulating Hormone 3 Months E11. - Type 2 diabetes mellitus with hyperglycemia Lipid Panel 3 Months E11.65 - Type 2 diabetes mellitus with hyperglycemia, E78 .00 - Pure hypercholesterolemia, unspecified Microalbumin, Random (w Creat) 3 Months E11. - Type 2 diabetes mellitus with hyperglycemia Vitamin B12 and Folate 3 Months E11. - Type 2 diabetes mellitus with hyperglycemia AMB Hemoglobin A1c Today E11. - Type 2 diabetes mellitus with hyperglycemia Complete Blood Count Auto Diff 3 Months E11. - Type 2 diabetes mellitus with hyperglycemia Comprehensive Met. Panel 3 Months E11. - Type 2 diabetes mellitus with hyperglycemia Hemoglobin A1c 3 Months E11. - Type 2 diabetes mellitus with hyperglycemia Creatinine Urine 3 Months E11. - Type 2 diabetes mellitus with hyperglycemia Vitamin D 25-OH Total 3 Months E11. - Type 2 diabetes mellitus with hyperglycemia Medications: New jason.stocking,knee,reg,xlrg As directed 20-30 mm HG 12 ea 0RF I73.9 - Peripheral vascular disease, unspecified Changed From hydrochlorothiazide 12.5 mg PO DAILY 30 days 30 tabs 4RF I10 - Essential (primary) hypertension To hydrochlorothiazide 12.5 mg PO DAILY 90 days 90 tabs 3RF I10 - Essential (primary) hypertension Refilled nifedipine ER 60 mg PO DAILY 30 days 90 tabs 3RF I10 - Essential (primary) hypertension metoprolol succinate ER 100 mg PO DAILY 90 tabs 2RF Coding Level of Care Code Est Pt Level 4 (16552) Diagnoses Overweight (BMI 25.0-29.9) E66.3 Type 2 diabetes mellitus with hyperglycemia, without long-term current use of insulin E11.65 Diabetes mellitus shelter insulin use: without shelter use Essential hypertension I10 Hypertension type: essential hypertension Pulmonary emphysema, unspecified emphysema type J43.9 COPD type: emphysema Emphysema type: unspecified Hypercholesterolemia E78.00 Peripheral vascular disease I73.9
== END 2023-09-16 11:01 | disposition home or self-care (01) ==
LOC: HO.HMGH 10:15
PROVIDERS: PCP Internal Medicine; Visit Provider Internal Medicine
DX: E11.65 Type 2 diabetes mellitus with hyperglycemia (principal); I10 Essential (primary) hypertension; J43.9 Emphysema, unspecified; I73.9 Peripheral vascular disease, unspecified; E78.00 Pure hypercholesterolemia, unspecified
CPT/HCPCS: 83036; 99214

== ENCOUNTER 2024-02-09 09:24 | Outpatient (REF) | payer MEDICARE, SELFPAY ==
[2024-02-09 10:32] LABS: MANUAL DIFF FLAG NO
[2024-02-09 10:37] LABS: Basophils Percent Auto 0.7 % (0-2); Eosinophils Absolute Auto 0.2 X10*3/uL (0.0-0.4); Eosinophils Percent Auto 3.9 % (0-4); Hematocrit 39.7 % (37.0-47.0); Hemoglobin 12.8 g/dl (12.0-16.0); Imm Gran Abs Auto 0.01 X10*3/uL (0.00-0.03); Imm Gran Pct Auto 0.2 % (0.0-0.4); Lymphocytes Absolute Auto 1.9 X10*3/uL (1.2-4.9); Lymphocytes Percent Auto 44.2 % (20-40); Mean Corpuscular HGB Conc 32.2 g/dl (31.0-35.0); Mean Corpuscular Hemoglobin 28.3 pg (27.0-33.0); Mean Corpuscular Volume 87.6 fL (80.0-98.0); Mean Platelet Volume 11.1 fL (9.4-12.3); Monocytes Absolute Auto 0.5 X10*3/uL (0.1-1.2); Monocytes Percent Auto 11.9 % (2-11); Neutrophils Absolute Auto 1.7 x10*3/uL (2.0-8.3); Neutrophils Percent Auto 39.1 % (45-73); Platelet Count 155 X10*3/uL (160-400); Red Blood Count 4.53 X10*6/uL (4.20-5.50); Red Cell Distribution Width 13.5 % (11.0-16.0); White Blood Count 4.4 X10*3/uL (4.8-10.8)
[2024-02-09 10:44] LABS: Estimated Average Glucose 134 mg/dL; Hemoglobin A1c % 6.3 % (<6.0); Total Hemoglobin (HGBA1C) 3194.1185 umol/L
[2024-02-09 11:06] LABS: Alanine Aminotransferase 12 U/L (0-31); Alkaline Phosphatase 61 U/L (39-117); Anion Gap 11 (12-20); Aspartate Amino Transferase 20 U/L (5-31); Bilirubin Total 0.7 mg/dL (0.0-1.0); Blood Urea Nitrogen 23 mg/dL (9-16); Carbon Dioxide 29 mmol/L (22-29); Chloride 103 mmol/L (96-108); Cholesterol 121 mg/dL (<200); Estimated Glomerular Filt Rate 47; Glucose Random 99 mg/dL (60-115); HDL Cholesterol 42 mg/dL (>40); LDL Cholesterol Calculated 68 mg/dL (<100); Potassium 4.4 mmol/L (3.3-5.1); Sodium 139 mmol/L (135-145); Total Protein 7.4 g/dL (6.5-8.0); Triglycerides 58 mg/dL (<150)
[2024-02-09 11:09] LABS: Free T4 (Free Thyroxine) 1.24 ng/dL (0.71-1.85); Thyroid Stimulating Hormone 0.77 uIU/mL (0.32-4.0); Vitamin D 25-OH Total 55.5 ng/mL (>30)
[2024-02-09 11:19] LABS: Folate 8.1 ng/mL (> or = 4.0); Vitamin B12 406 pg/mL (200-900)
[2024-02-09 11:35] LABS: Creatinine Urine 97.14 mg/dL
[2024-02-09 11:38] LABS: Creatinine Urine 94.22 mg/dL; Microalbumin Urine < 5.0 mg/L
== END 2024-02-09 09:25 | disposition home or self-care (01) ==
LOC: HO.10HDL 09:24
PROVIDERS: Visit Provider Internal Medicine
DX: E11.65 Type 2 diabetes mellitus with hyperglycemia (principal); E78.00 Pure hypercholesterolemia, unspecified
CPT/HCPCS: 36415; 80053; 80061; 82043; 82306; 82570; 82607; 82746; 83036; 84439; 84443; 85025

== ENCOUNTER 2024-02-16 10:58 | Outpatient (AMB) | payer MEDICARE, SELFPAY ==
--- NOTE | 2024-02-16 10:59 | MHC.PC.OV ---
Vital Signs 02/16/24 11:01 Height 5 ft 3 in Weight 160 lb BMI 28.3 BP 130/76 Blood Pressure Location Lt brachial Position Sitting Pulse 67 Pulse Source Pulse Oximeter Pulse Oximetry (%) 95 Oxygen Delivery Method Room Air Intake Visit Reasons: 3mth f/u-see comm Intake Note: Patient here for a 3 month follow up Endocrinology Specialist Required: No Accompanied by: Self / Same As Patient Allergies lisinopril Allergy (Unknown, Verified 02/16/24 11:06) creatinine increase Medication List - Last Reconciled 02/16/24 by Rell Kasper MD albuterol sulfate 90 mcg/actuation 2 puffs inhalation Q6H PRN atorvastatin 40 mg PO BEDTIME cholecalciferol (vitamin D3) 25 mcg PO DAILY jason.stocking,knee,reg,xlrg As directed 20-30 mm HG fluticasone propion-salmeterol 250-50 mcg/dose (Advair Diskus) 1 inh inhalation BID hydrochlorothiazide 12.5 mg PO DAILY 90 days metformin 500 mg PO BID metoprolol succinate ER 100 mg PO DAILY nifedipine ER 60 mg PO DAILY 30 days Tobacco use date assessed: 05/17/23 Fall risk assessment: No Falls in past year Last assessed Fall Risk: 02/16/24 Dental Screening Dental Screen Date: 02/16/24 Did you have a dental visit in the last 12 months?: No Did you have a dental problem in the last 6 months where you did not have access to dental care?: No Was dental information given to patient?: Patient declined HPI 3mth f/u-see comm HPI Details The patient is an 83-year-old female presenting with chronic disease management and preventive care. She has a history of diabetes mellitus, and her current Hemoglobin A1c is 6.3%, slightly above the standard normal range of 5.7%. She experiences shortness of breath predominantly with increased physical activity due to her COPD. She regularly uses Advair inhaler at a dosage of one inhalation twice daily and rinses her mouth post-application. Albuterol, as a rescue inhaler, is used infrequently, primarily on days with increased exertion, such as going to [employer] twice a week or during longer walks. Her recent blood work shows a low white blood cell count, which is consistent with previous results, and a platelet count at the low normal range. However, she is not anemic, and her electrolytes, liver function tests, B12, folic acid, and thyroid studies are within normal limits. Her kidney function is stable, although it requires monitoring due to age-related decline and diabetes. Preventively, her recent bad cholesterol level is at 68 mg/dL, which is below the desirable range. She has had a flu shot previously and is due for another one to mitigate infection risk during the flu season. Moreover, the patient maintains hydration, stair climbing activities, and reports no swelling in her legs. [facility] Medical History (Updated 09/16/23 @ 10:52 by Rell Kasper MD) Obesity (BMI 30-39.9) Overweight (BMI 25.0-29.9) Hypercholesterolemia COPD (chronic obstructive pulmonary disease) Type 2 diabetes mellitus with hyperglycemia Surgical History No pertinent past surgical history Family History Family/Other Medical history unknown Social History Housing: House Alcohol intake: never Patient Tobacco Use Status: Former Tobacco user Tobacco use type: Cigarette e-Cigarette/Vaping Use: Never Used Second Hand Smoke Exposure: Yes service: No Current occupational status: retired Cognitive needs: No Hearing needs: No Vision needs: Yes Questionnaire PHQ-9 Over the last 2 weeks, how often have you been bothered by any of the following problems? 1. Little interest or pleasure in doing things: not at all 2. Feeling down, depressed, or hopeless: not at all 3. Trouble falling or staying asleep, or sleeping too much: not at all 4. Feeling tired or having little energy: not at all 5. Poor appetite or overeating: not at all 6. Feeling bad about yourself - or that you are a failure or have let yourself or your family down: not at all 7. Trouble concentrating on things, such as reading the newspaper or watching television: not at all 8. Moving or speaking so slowly that other people could have noticed. Or the opposite - being so fidgety or restless that you have been moving around a lot more than usual: not at all 9. Thoughts that you would be better off or of hurting yourself in some way: not at all Total score: 0 Source: Developed by Drs. Cristhian Hills, Keysha Dave, Nick Faria and colleagues, with an educational tracey from [employer]. Thrive Questionnaire Date Thrive assessed: 02/16/24 I am a: Patient What is your living situation today?: I have a steady place to live Within the past 12 months, did the food you bought not last and you didn't have the money to get more?: Never true Within the past 12 months, did you worry whether your food would run out before you got money to buy more?: Never true Do you have trouble paying for medicines?: No Do you have trouble getting transportation to medical appointments?: No Do you have trouble paying your heating and electricity bill?: No Do you have trouble taking care of your child, family member or friend?: No Do you have trouble with day-to-day activities such as bathing, preparing meals, shopping, managing finances, etc.?: No Are you currently unemployed and looking for a job?: No Are you interested in more education?: No Please select the resources that you would like help with: None Currently or been in a relationship where the following occur: No concerns reported THRIVE Score: 0 AUDIT C Alcohol Use Questionnaire (AUDIT-C) 1. How often do you have a drink containing alcohol?: Monthly or less 2. How many drinks containing alcohol do you have on a typical day when you are drinking?: 1 or 2 3. How often do you have six or more drinks on one occasion?: Never Total Score: 1 AIMEE-7 AMB Questionnaire AIMEE-7 Date AIMEE - 7 assessed: 02/16/24 Feeling nervous, anxious, or on edge: 0 = Not at all Not being able to stop or control worryin = Not at all Worrying too much about different things: 0 = Not at all Trouble relaxin = Not at all Being so restless that it is hard to sit still: 0 = Not at all Becoming easily annoyed or irritable: 0 = Not at all Feeling afraid as if something awful might happen: 0 = Not at all Total AIMEE-7 score (0-4 normal; 5-9 mild; 10-14 moderate; 15-21 severe): 0 Source: Developed by Drs. Cristhian Hills, Keysha Dave, Nick Faria and colleagues, with an educational tracey from [employer]. Physical exam (Primary Care) Vital Signs: Last Vital Signs Pulse 67 02/16/24 11:01 BP 130/76 02/16/24 11:01 Pulse Ox 95 02/16/24 11:01 Oxygen Delivery Method Room Air 02/16/24 11:01 BMI result Body Mass Index 28.3 Tobacco/Smoking Status: Tobacco use Status Tobacco use date assessed 05/17/23 02/16/24 11:07 Patient Tobacco Use Status Former Tobacco user 02/16/24 11:07 Tobacco use type Cigarette 02/16/24 11:07 e-Cigarette/Vaping Use Never Used 02/16/24 11:07 PHQ-9: PHQ-9 Score PHQ-9: Total score 0 02/16/24 11:28 Thrive Assessment: Date of Thrive Assessment Date Thrive assessed 02/16/24 02/16/24 11:07 Currently or been in a relationship where the following occur: No concerns reported Const General: alert; No acute distress Eyes Conjunctivae: conjunctivae normal Resp Auscultation: clear to auscultation bilaterally Cardio Rate: regular rate Rhythm: regular rhythm GI Inspection: Yes normal to inspection Extrem General: Yes normal to inspection and No edema Office Procedures Flu Questionnaire Does the patient have a severe egg allergy?: No Does the patient have severe life threatening allergies?: No Does the patient have a fever or illness today?: No Has the patient ever had Guillain-Hamilton Syndrome?: No Has the patient ever had any past reaction to a flu shot?: No Immunizations Fluarix Triv [id number] (PF) 45 mcg (15 mcg x 3)/0.5 mL IM syringe Performing Provider: Rell Kasper MD Per[facility] Administered by: AMY Brown on 02/16/24 11:28 Dose Route Admin Location Dispensed Lot Number Expiration Date NDC Necktie Stitcher 0.5 mL IM Left Deltoid 0.5 mL [id number] 08/20/24 [id number] [employer] VIS Given Date VIS Provided VIS Publication Date 02/16/24 Single Vaccine 20 Eligibility Eligibility Date Funding Source Not VFC Eligible 02/16/24 Private Coding Level of Care Code Est Pt Level 4 (95079) Complex EM visit Add On G2211 Diagnoses Type 2 diabetes mellitus with hyperglycemia, without long-term current use of insulin E11.65 Diabetes mellitus assistant terminal manager insulin use: without assistant terminal manager use Essential hypertension I10 Hypertension type: essential hypertension Pulmonary emphysema, unspecified emphysema type J43.9 COPD type: emphysema Emphysema type: unspecified Hypercholesterolemia E78.00 Overweight (BMI 25.0-29.9) E66.3 Assessment & Plan Assessment & Plan (1) Type 2 diabetes mellitus with hyperglycemia: Comment: Dr. Green Code(s): E11.65 - Type 2 diabetes mellitus with hyperglycemia Category: Medical Qualifiers: Diabetes mellitus skilled nursing insulin use: without skilled nursing use Qualified Code(s): E11.65 - Type 2 diabetes mellitus with hyperglycemia Plan: Decrease the amount of carbohydrate intake, pasta, bread, rice and potatoes are all sugar and that is aside from all the sweet stuff, remember that fruits are good but they are Sweet also. Hemoglobin A1c goal of less than 7.0 on metformin 500 mg twice a day (2) Hypertension: Code(s): I10 - Essential (primary) hypertension Category: Medical Qualifiers: Hypertension type: essential hypertension Qualified Code(s): I10 - Essential (primary) hypertension Plan: Continue with blood pressure medication. Decrease salt intake and exercise patient is on metoprolol 100 mg once a day nifedipine 60 mg once a day and hydrochlorothiazide 12.5 mg once a day (3) COPD (chronic obstructive pulmonary disease): Code(s): J44.9 - Chronic obstructive pulmonary disease, unspecified Category: Medical Qualifiers: COPD type: emphysema Emphysema type: unspecified Qualified Code(s): J43.9 - Emphysema, unspecified Plan: Continue with albuterol inhaler as well as Advair (4) Hypercholesterolemia: Code(s): E78.00 - Pure hypercholesterolemia, unspecified Category: Medical Plan: Avoid fried foods, chicken skin, eggs, butter margarine, pastries and meat. Be it pork or beef they have a lot of cholesterol LDL goal of less than 100 on atorvastatin 40 mg once a day (5) Overweight (BMI 25.0-29.9): Code(s): E66.3 - Overweight Category: Medical Plan: Continue with diet and exercise Plan - Diabetes mellitus: Continue monitoring blood glucose levels. Emphasize nutrition and physical activity to maintain stable glycemic control. Consider medication adjustments if A1c levels increase. - Chronic Obstructive Pulmonary Disease COPD): Continue Advair use as prescribed. Limit Albuterol to symptomatic episodes during physical exertion. Monitor for increased breathlessness and consult if medication use increases. - Low white blood cell count: Continue regular blood test monitoring given the stable trend without symptoms. - Low normal platelet count: Maintain regular surveillance of platelet levels given the current asymptomatic status. - Preventive care: Administer flu vaccine for seasonal protection against influenza. - Continue emphasizing adherence to physical activity and hydration as part of overall health maintenance. Encourage minimizing exposure to potential infections. Orders: Orders Influenza [id number] Immunization Today Z23 - Encounter for immunization Medications: Refilled metoprolol succinate ER 100 mg PO DAILY 90 tabs 2RF
[2024-02-16 11:01] VITALS: BP 130/76; PULSE 67; O2SAT 95; BMI 28.3
== END 2024-02-16 11:29 | disposition home or self-care (01) ==
PROVIDERS: PCP Internal Medicine; Visit Provider Internal Medicine
DX: E11.65 Type 2 diabetes mellitus with hyperglycemia (principal); I10 Essential (primary) hypertension; J43.9 Emphysema, unspecified; E78.00 Pure hypercholesterolemia, unspecified; E66.3 Overweight; Z23 Encounter for immunization

== ENCOUNTER → 2024-02-16 10:58 | Outpatient (BNVA) | payer MEDICARE, SELFPAY | PROVIDERS: PCP Internal Medicine; Visit Provider Internal Medicine | DX: Z23 Encounter for immunization (principal); E11.65 Type 2 diabetes mellitus with hyperglycemia; I10 Essential (primary) hypertension; J43.9 Emphysema, unspecified; E78.00 Pure hypercholesterolemia, unspecified; E66.3 Overweight; Z68.28 Body mass index [BMI] 28.0-28.9, adult; Z71.3 Dietary counseling and surveillance | CPT/HCPCS: 90471; 90656; 96127; 99212 ==

== ENCOUNTER 2024-05-06 09:20 | Inpatient (IN) | payer MEDICARE, SELFPAY ==
[2024-05-06] VITALS (31 sets, daily range): BP systolic 56–177; BP diastolic 29–108; PULSE 92–119; RESP 15–28; TEMP 35.8–37.6; O2SAT 63–100; BMI 30.5; BMI 28.7
--- NOTE | ~2024-05-06 | CT_ITS ---
EXAMINATION: CT ABDOMEN PELVIS WITH IV CONTRAST HISTORY: ? Bowel obstruction, ? Hydronephrosis COMPARISON: There are no prior studies for comparison. TECHNIQUE: CT scan of the abdomen and pelvis was performed following administration of 85 mL Omnipaque 350 using standard departmental protocol. Coronal and sagittal reformatted images were generated and reviewed. Oral contrast material was not administered at the request of the referring physician. This CT exam was performed with one or more of the following dose reduction techniques: automated exposure control, adjustment of the mA and/or kV according to patient size, use of iterative reconstruction technique. DLP: 575 mGy-cm FINDINGS: LOWER CHEST: There are tiny bilateral pleural effusions with adjacent compressive atelectasis. CARDIOVASCULATURE: The heart is normal in size. There is no pericardial effusion. LIVER: The liver is normal in size and contour. No liver mass is identified. The hepatic and portal veins are patent. GALLBLADDER / BILE DUCTS: The gallbladder is unremarkable. There is no intra or extrahepatic biliary ductal dilatation. SPLEEN: The spleen is normal in size. No focal splenic lesion is identified. PANCREAS: The pancreas is unremarkable in appearance. ADRENAL GLANDS: The right adrenal gland is unremarkable. There is a 1.7 cm left adrenal mass. KIDNEYS/RETROPERITONEUM: There are poor nephrograms bilaterally. No renal calculi are identified. There is no hydronephrosis. No renal masses are identified. LYMPH NODES: No abdominal or pelvic lymphadenopathy. VASCULATURE: The abdominal aorta demonstrates atherosclerotic calcification, but is normal in caliber. MESENTERY/PERITONEUM: No free fluid. No masses. There is no free intraperitoneal gas. STOMACH: The stomach is collapsed, limiting evaluation. SMALL BOWEL: The small bowel is normal in caliber. COLON: The colon is unremarkable. APPENDIX: The appendix is not seen, however no inflammatory changes are seen adjacent to the cecum. URINARY BLADDER/PELVIC ORGANS: The urinary bladder is collapsed with a Irizarry catheter. The uterus is unremarkable. BONES / SOFT TISSUES: No suspicious bony or soft tissue abnormalities. CT/CT abdomen pelvis w IV con IMPRESSION: 1. Poor nephrograms bilaterally which can be seen in the setting of chronic medical renal disease. Clinical correlation is recommended. No hydronephrosis. 2. No evidence of bowel obstruction. 3. 1.7 cm left adrenal mass. In the absence of a known primary malignancy, this likely represents an adenoma. If there is a known primary malignancy, adrenal protocol CT is recommended. Electronically signed by: Cristhian Sánchez MD 05/07/2024 10:17 AM EDT
--- NOTE | ~2024-05-06 | XR_ITS ---
CLINICAL HISTORY: SOB 1 view chest x-ray Comparison: CR - CHEST 2 VIEWS [id number] - 10/07/15 07:55 EDT Findings: Mild bilateral interstitial opacities are present. Normal size heart. No acute fracture. IMPRESSION: 1. Mild bilateral interstitial opacities, which may be secondary to interstitial edema or an infectious/inflammatory process. This document has been electronically signed by: Carlie Ayala on 05/06/2024 10:16:11
--- NOTE | 2024-05-06 09:41 | ECG_ITS ---
Test Reason : SOB Blood Pressure : */* mmHG Vent. Rate : 116 BPM Atrial Rate : 116 BPM P-R Int : 152 ms QRS Dur : 78 ms QT Int : 328 ms P-R-T Axes : 61 24 50 degrees QTcB Int : 455 ms Sinus tachycardia Otherwise normal ECG When compared with ECG of 28-Sep-2017 08:10, No significant change was found Referred By: Generic ED Physician Electronically Signed By: SHAYY PEREZ
[2024-05-06 10:12] LABS: Basophils Percent Auto 0.4 % (0-2); Eosinophils Percent Auto 0.2 % (0-4); Hematocrit 37.2 % (37.0-47.0); Imm Gran Abs Auto 0.01 X10*3/uL (0.00-0.03); Imm Gran Pct Auto 0.2 % (0.0-0.4); Lymphocytes Absolute Auto 0.7 X10*3/uL (1.2-4.9); Lymphocytes Percent Auto 12.5 % (20-40); MANUAL DIFF FLAG NO; Mean Corpuscular HGB Conc 32.3 g/dl (31.0-35.0); Mean Corpuscular Volume 86.9 fL (80.0-98.0); Mean Platelet Volume 10.2 fL (9.4-12.3); Monocytes Absolute Auto 0.5 X10*3/uL (0.1-1.2); Monocytes Percent Auto 8.1 % (2-11); Neutrophils Absolute Auto 4.4 x10*3/uL (2.0-8.3); Neutrophils Percent Auto 78.6 % (45-73); Platelet Count 163 X10*3/uL (160-400); Red Blood Count 4.28 X10*6/uL (4.20-5.50); Red Cell Distribution Width 13.5 % (11.0-16.0); White Blood Count 5.5 X10*3/uL (4.8-10.8)
--- NOTE | 2024-05-06 10:14 | ED.SOB ---
HPI - SOB/Dyspnea General Chief Complaint: Dyspnea Stated Complaint: weakness Time Seen by Provider: 05/06/24 09:59 Source: patient Mode of arrival: wheelchair Limitations: no limitations History of Present Illness HPI Narrative: this is 83 years old female patient with a history of COPD not on oxygen presented to emergency department with a chief complaint of shortness of breath wheezing. She states she has been sick for week with cough. She was found hypoxic in triage with a sat 63%. She was brought in the treatment room MD elicited complaint: shortness of breath and cough Pertinent past history: COPD Onset (ago): week(s) (1) Context: recent illness Timing: constant Severity: moderate Exacerbating factors: nothing Relieving factors: nothing Known history of: COPD Associated symptoms: denies other symptoms Related Data Home oxygen amount: none Previous Rx's ?Medication ?Instructions ?Recorded atorvastatin 40 mg tablet 40 mg PO BEDTIME #90 tabs 05/17/23 fluticasone 250 mcg-salmeterol 50 1 inh inhalation BID #60 ea 06/19/23 mcg/dose blistr powdr for inhalation (Advair Diskus) albuterol sulfate 90 mcg/actuation 2 puff inhalation Q6H PRN 08/29/23 aerosol inhaler bronchospasm #8.5 grams metformin 500 mg tablet 500 mg PO BID #180 tabs 08/29/23 [email or web address],[email or web address],xlrg #12 ea 09/16/23 metoprolol succinate 100 mg 100 mg PO DAILY #90 tabs 02/16/24 tablet,extended release 24 hr nifedipine 60 mg tablet,extended 60 mg PO DAILY 30 days #90 tabs 03/09/24 release Allergies Allergy/AdvReac Type Severity Reaction Status Date / Time lisinopril Allergy Unknown creatinine Verified 05/06/24 09:29 increase Review of Systems Constitutional: Constitutional: Reports no additional constitutional complaints Respiratory: Respiratory: Reports cough and Reports wheezing Allergic/Immunologic: Allergic/Immunologic: Reports wheezing PMFSH Past Medical History Medical History Obesity (BMI 30-39.9) Overweight (BMI 25.0-29.9) Hypercholesterolemia COPD (chronic obstructive pulmonary disease) Type 2 diabetes mellitus with hyperglycemia Surgical History No pertinent past surgical history Family History Family History Family/Other Medical history unknown Social History Social History Housing: House Alcohol intake: never Patient Tobacco Use Status: Former Tobacco user Tobacco use type: Cigarette Smoked in Last 30 Days: No e-Cigarette/Vaping Use: Never Used Second Hand Smoke Exposure: Yes Use of substances other than those prescribed or required for medical reasons: No Advance Directives: No Advance Directives Information Provided: No Nutrition Risks: No Nutritional Risk service: No Current occupational status: retired Cognitive needs: No Hearing needs: No Vision needs: Yes Physical Exam Vital Signs: Vital Signs: Last Vital Signs Temp 96.4 F L 05/06/24 14:57 Pulse 111 H 05/06/24 15:12 Resp 24 H 05/06/24 15:12 BP 97/56 L 05/06/24 15:12 Pulse Ox 91 L 05/06/24 15:12 O2 Del Method BiPAP 05/06/24 14:57 O2 Flow Rate 5 05/06/24 13:40 BMI result Body Mass Index 30.5 mild distress tachypneic hypoxic Const: General: cooperative Orientation/consciousness: patient oriented x3 HEENT: Head: Yes normal to inspection Mouth: Normal oral and palatal mucosa present Eyes: Eyelids: Yes eyelids normal EOM: EOMs intact bilaterally Chest: Chest palpation & inspection: normal inspection of the chest Resp: Auscultation: rhonchi and wheezes Cardio: Jugular venous distension: no JVD Rate: regular rate Rhythm: regular rhythm GI: Inspection: Yes normal to inspection Palpation (GI): Soft to palpation, not firm and nontender Skin: General skin exam: no rashes or lesions noted Neuro: General: patient oriented x3 Course Reevaluation(s) Reevaluation #1: Seen by Dr Dangelo requested ICU consult because work of breathing increasing,will call ICU attending and will repeat ABG Time: 14:57 Reevaluation #2: accepted to ICU on bipap now Time: 14:57 Reevaluation #3: repeat ABG better ph from 7.167 to 7.220 C02 down from 74 to [address] Painting ICU attending I also spoke at length with daughter and granddaughter Time: 15:32 Medications Administered Generic Name Dose Route Start Last Admin Trade Name Navi PRN Reason Stop Dose Admin Enoxaparin Sodium 40 mg 05/06/24 15:00 05/06/24 15:10 Enoxaparin Sodium 40 Mg/0.4 Ml Syringe SUBCUT 40 mg Q24H LETHA Administration Azithromycin 500 mg/ Sodium 250 mls @ 125 mls/hr 05/06/24 14:11 05/06/24 15:10 Chloride IV 05/06/24 16:10 125 mls/hr DAILY ONE Administration Insulin Human Lispro 0 unit 05/06/24 14:30 05/06/24 15:10 Insulin Lispro 100 Unit/Ml 3 Ml Vial SUBCUT Not Given Q6H [facility] Protocol Discontinued Medications Generic Name Dose Route Start Last Admin Trade Name Navi PRN Reason Stop Dose Admin Ceftriaxone Sodium 1 gm 05/06/24 10:46 05/06/24 11:10 Ceftriaxone Sodium 1 Gm Vial IVPUSH 05/06/24 10:47 1 gm ONCE ONE Administration Albuterol Sulfate 5 mg/ 0 mg 05/06/24 10:47 05/06/24 10:54 Albuterol/Ipratropium 3 ml INHALE 05/06/24 10:48 7.5 each ONCE ONE Administration Albuterol Sulfate 7.5 mg/ 0 mg 05/06/24 14:07 05/06/24 14:27 Albuterol/Ipratropium 3 ml INHALE 05/06/24 14:08 7.5 each ONCE ONE Administration Epinephrine 0.5 ml 05/06/24 13:48 05/06/24 13:54 Racepinephrine Hcl 0.5 Ml Vial.Neb INHALE 05/06/24 13:49 0.5 ml ONCE ONE Administration Furosemide 20 mg 05/06/24 11:54 05/06/24 12:13 Furosemide 20 Mg/2 Ml Vial IVPUSH 05/06/24 11:55 20 mg ONCE ONE Administration Protocol Furosemide 40 mg 05/06/24 13:48 05/06/24 13:51 Furosemide 40 Mg/4 Ml Vial IVPUSH 05/06/24 13:49 40 mg ONCE ONE Administration Protocol Doxycycline Hyclate 100 mg/ 250 mls @ 166.67 mls/hr 05/06/24 10:46 05/06/24 12:43 Sodium Chloride IV 05/06/24 12:15 Infused ONCE ONE Infusion Magnesium Sulfate/Dextrose 1 gm in 100 mls @ 100 mls/hr 05/06/24 14:43 05/06/24 15:11 Magnesium Sulfate/D5w IV 05/06/24 15:42 100 mls/hr ONCE ONE Administration Levalbuterol HCl 2.5 mg 05/06/24 11:18 05/06/24 11:22 Levalbuterol Hcl 1.25 Mg/3 Ml Vial.Neb INHALE 05/06/24 11:19 2.5 mg ONCE ONE Administration Methylprednisolone Sodium Succinate 125 mg 05/06/24 10:13 05/06/24 10:25 Methylprednisolone Sod Succ 125 Mg/2 Ml Vial IVPUSH 05/06/24 10:14 125 mg ONCE ONE Administration Morphine Sulfate 2 mg 05/06/24 12:57 05/06/24 13:05 Morphine Sulfate 2 Mg/Ml Cartridge IVPUSH 05/06/24 12:58 2 mg ONCE ONE Administration Protocol Medical Decision Making Medical Decision Making [facility] [place] Narrative: patient presented with a chief complaint of shortness of breath hypoxia we will obtain CXR labs 3:36 PM doing better with the BiPAP pH trending up CO2 trending down, patient will go to the intensive care unit, I do not think she has sepsis syndrome lactic acid is normal she has no fever she has a normal white count. BNP was elevated therefore she was given a dose of Lasix chest x-ray was read by the radiologist also as a possible CHF versus infiltrate some IV antibiotic also was given to the patient. She remains frail, I spoke at length with the daughter and granddaughter. Differential Diagnosis Differential Diagnoses: The differential diagnosis associated with the presentation includes pneumonia/ COPD exacerbation /CHF Admission/Observation Consideration of admission/observation: Escalation of care including admission/observation considered Consult Healthcare Provider ICU attending Lab Data [facility] [place] Lab Attestation statement: I reviewed the patient's lab results. 05/06/24 10:06 05/06/24 10:06 Labs: Lab Results 05/06/24 05/06/24 05/06/24 Range/Units 10:06 10:28 11:22 WBC 5.5 (4.8-10.8) X10*3/uL RBC 4.28 (4.20-5.50) X10*6/uL Hgb 12.0 (12.0-16.0) g/dl Hct 37.2 (37.0-47.0) % MCV 86.9 (80.0-98.0) fL MCH 28.0 (27.0-33.0) pg MCHC 32.3 (31.0-35.0) g/dl RDW 13.5 (11.0-16.0) % Plt Count 163 (160-400) X10*3/uL MPV 10.2 (9.4-12.3) fL Immature Gran % (Auto) 0.2 (0.0-0.4) % Neut % (Auto) 78.6 H (45-73) % Lymph % (Auto) 12.5 L (20-40) % [place] % (Auto) 8.1 (2-11) % Eos % (Auto) 0.2 (0-4) % Baso % (Auto) 0.4 (0-2) % Lymph # (Auto) 0.7 L (1.2-4.9) X10*3/uL [place] # (Auto) 0.5 (0.1-1.2) X10*3/uL Eos # (Auto) 0.0 (0.0-0.4) X10*3/uL Baso # (Auto) 0.0 (0.0-0.2) X10*3/uL Abs Immat Gran (auto) 0.01 (0.00-0.03) X10*3/uL Absolute Neuts (auto) 4.4 (2.0-8.3) x10*3/uL Absolute Nucleated RBC 0.000 (0.0-0.012) X10*3/uL Nucleated RBC % (auto) 0.0 (0.0-0.2) /100WBC O2 Saturation % ABG pH at Pt Temp (7.35-7.45) ABG pCO2 at Pt Temp (32-45) mmHg ABG pO2 at Pt Temp (83-108) mmHg ABG HCO3 (22-26) mmol/L ABG Base Excess (Actual) mmol/L VBG pH 7.48 H (7.32-7.43) VBG pCO2 29 mmHg VBG pO2 114 mmHg VBG HCO3 22 (22-26) mmol/L VBG O2 Saturation 99.0 % VBG Base Excess -0.3 mmol/L Sodium 134 L (135-145) mmol/L Potassium 4.6 (3.3-5.1) mmol/L Chloride 99 (96-108) mmol/L Carbon Dioxide 24 (22-29) mmol/L Anion Gap 16 (12-20) BUN 17 H (9-16) mg/dL Creatinine 0.92 (0.5-1.4) mg/dL Estim Creat Clear Calc 45.8 Estimated GFR 58 Random Glucose 173 H (60-115) mg/dL Lactic Acid 0.8 (0.5-2.0) mmol/L Calcium 9.2 D (8.4-10.2) mg/dL Magnesium 1.5 L (1.6-2.6) mg/dL Total Bilirubin 0.9 (0.0-1.0) mg/dL AST 21 (5-31) U/L ALT 11 (0-31) U/L Alkaline Phosphatase 67 (39-117) U/L Troponin I High Sens 67.8 H* (<3.5-17.0) ng/L B-Natriuretic Peptide 290 H (<100) pg/mL Total Protein 7.7 (6.5-8.0) g/dL Albumin 3.8 (3.5-5.0) g/dL Influenza Type A (PCR) NEGATIVE (Negative) Influenza Type B (PCR) NEGATIVE (Negative) RSV RNA Qual (PCR) NEGATIVE (Negative) SARS-CoV-2 RNA (RT-PCR) NEGATIVE (Negative) 05/06/24 Range/Units 13:58 WBC (4.8-10.8) X10*3/uL RBC (4.20-5.50) X10*6/uL Hgb (12.0-16.0) g/dl Hct (37.0-47.0) % MCV (80.0-98.0) fL MCH (27.0-33.0) pg MCHC (31.0-35.0) g/dl RDW (11.0-16.0) % Plt Count (160-400) X10*3/uL MPV (9.4-12.3) fL Immature Gran % (Auto) (0.0-0.4) % Neut % (Auto) (45-73) % Lymph % (Auto) (20-40) % [place] % (Auto) (2-11) % Eos % (Auto) (0-4) % Baso % (Auto) (0-2) % Lymph # (Auto) (1.2-4.9) X10*3/uL [place] # (Auto) (0.1-1.2) X10*3/uL Eos # (Auto) (0.0-0.4) X10*3/uL Baso # (Auto) (0.0-0.2) X10*3/uL Abs Immat Gran (auto) (0.00-0.03) X10*3/uL Absolute Neuts (auto) (2.0-8.3) x10*3/uL Absolute Nucleated RBC (0.0-0.012) X10*3/uL Nucleated RBC % (auto) (0.0-0.2) /100WBC O2 Saturation 98.0 % ABG pH at Pt Temp 7.17 L* (7.35-7.45) ABG pCO2 at Pt Temp 74 H* (32-45) mmHg ABG pO2 at Pt Temp 116 H (83-108) mmHg ABG HCO3 27 H (22-26) mmol/L ABG Base Excess (Actual) -2.6 mmol/L VBG pH (7.32-7.43) VBG pCO2 mmHg VBG pO2 mmHg VBG HCO3 (22-26) mmol/L VBG O2 Saturation % VBG Base Excess mmol/L Sodium (135-145) mmol/L Potassium (3.3-5.1) mmol/L Chloride (96-108) mmol/L Carbon Dioxide (22-29) mmol/L Anion Gap (12-20) BUN (9-16) mg/dL Creatinine (0.5-1.4) mg/dL Estim Creat Clear Calc Estimated GFR Random Glucose (60-115) mg/dL Lactic Acid (0.5-2.0) mmol/L Calcium (8.4-10.2) mg/dL Magnesium (1.6-2.6) mg/dL Total Bilirubin (0.0-1.0) mg/dL AST (5-31) U/L ALT (0-31) U/L Alkaline Phosphatase (39-117) U/L Troponin I High Sens (<3.5-17.0) ng/L B-Natriuretic Peptide (<100) pg/mL Total Protein (6.5-8.0) g/dL Albumin (3.5-5.0) g/dL Influenza Type A (PCR) (Negative) Influenza Type B (PCR) (Negative) RSV RNA Qual (PCR) (Negative) SARS-CoV-2 RNA (RT-PCR) (Negative) ABG Data Attestation ABG: I personally reviewed and interpreted this ABG as follows: Interpretation: Respiratory acidosis Independent Interpretation I performed an independent interpretation of an: Plain X-Ray Interpretation: increasing iinfiltrate CHF versus pneumonitis Radiology Impression Discussion of test interpretation with radiology: I have reviewed the radiologist's reading. Independent Historian daughter and granddaughter Chronic Conditions Patient?s care impacted by: Other (COPD) Critical Care Time Critical Care Time Critical Care Time: Yes Total Critical Care Time: 60 Attestation: multiple nebs ,respiratory failure requiring bipapp Discharge Plan Discharge Clinical Impression: COPD with acute exacerbation, Hypoxia Respiratory failure with hypoxia and hypercapnia Qualifiers: Chronicity: acute Qualified Code(s): J96.01 - Acute respiratory failure with hypoxia Patient Disposition: Admitted As Inpatient Interventions: Admission Worksheet (ED) Last Done: 05/06/24 15:21
[2024-05-06] MEDS: methylPREDNISolone Sod Succ 125 MG/2 ML VIAL IVPUSH (10:25)
[2024-05-06 10:31] LABS: Venous Blood Gas Refer to POC result
[2024-05-06 10:32] LABS: B Type Natriuretic Peptide 290 pg/mL (<100)
[2024-05-06 10:33] LABS: VBG Base Excess -0.3 mmol/L; VBG HCO3 22 mmol/L (22-26); VBG pCO2 29 mmHg; VBG pH 7.48 (7.32-7.43); VBG pO2 114 mmHg
[2024-05-06 10:43] LABS: Alanine Aminotransferase 11 U/L (0-31); Albumin Level 3.8 g/dL (3.5-5.0); Alkaline Phosphatase 67 U/L (39-117); Anion Gap 16 (12-20); Aspartate Amino Transferase 21 U/L (5-31); Bilirubin Total 0.9 mg/dL (0.0-1.0); Blood Urea Nitrogen 17 mg/dL (9-16); Calcium 9.2 mg/dL (8.4-10.2); Carbon Dioxide 24 mmol/L (22-29); Chloride 99 mmol/L (96-108); Creatinine Clr Calc Pharmacy 45.8; Estimated Glomerular Filt Rate 58; Glucose Random 173 mg/dL (60-115); Magnesium 1.5 mg/dL (1.6-2.6); Potassium 4.6 mmol/L (3.3-5.1); Sodium 134 mmol/L (135-145); Total Protein 7.7 g/dL (6.5-8.0)
[2024-05-06 10:50] LABS: Influenza A PCR NEGATIVE (Negative); Influenza B PCR NEGATIVE (Negative); Resp Syncy Virus RNA Qual PCR NEGATIVE (Negative); SARS COV2 PCR INHOUSE NEGATIVE (Negative)
[2024-05-06] MEDS: Albuterol Sulfate 5 MG, Albuterol/Iprat 2.5/0.5MG 3 ML 3 ML INHALE (10:54)
[2024-05-06 10:55] LABS: Troponin-I High Sensitivity 67.8 ng/L (<3.5-17.0)
[2024-05-06] MEDS: cefTRIAXone sodium 1 GM VIAL IVPUSH (11:10)
[2024-05-06] MEDS: Doxycycline Hyclate 100 MG in 0.9 % Sodium Chloride 250 ML 166.67 MG IV (11:10)
--- NOTE | 2024-05-06 11:10 | PC.NURSE ---
boubacar soto afer 1st set of bld cultures b/c she is a diff stick
[2024-05-06] MEDS: levalbuterol HCL 1.25 MG/3 ML VIAL.NEB 2.5 MG INHALE (11:22)
[2024-05-06 11:55] LABS: Lactic Acid 0.8 mmol/L (0.5-2.0)
[2024-05-06] MEDS: Furosemide 20 MG/2 ML VIAL IVPUSH (12:13)
--- NOTE | 2024-05-06 12:19 | PHA.MEDREC ---
Pharmacy Consult ? Medication Reconciliation Pharmacy has completed the medication reconciliation. Spoke with daughter at bedside while pt slept. Confirmed all medications. Vitamin D3 and HCTZ were removed from med list, last filled 01/04/24, daughter stated she is only on 4 tablets, and the inhalers.
[2024-05-06] MEDS: Morphine Sulfate 2 MG/ML CARTRIDGE IVPUSH (13:05)
[2024-05-06] MEDS: Furosemide 40 MG/4 ML VIAL IVPUSH (13:51)
[2024-05-06] MEDS: Racepinephrine HCL 0.5 ML VIAL.NEB INHALE (13:54)
[2024-05-06 14:03] LABS: ABG Base Excess -2.6 mmol/L; ABG HCO3 27 mmol/L (22-26); ABG pCO2 74 mmHg (32-45); ABG pH 7.17 (7.35-7.45); ABG pO2 116 mmHg (83-108)
[2024-05-06] MEDS: Albuterol Sulfate 7.5 MG, Albuterol/Iprat 2.5/0.5MG 3 ML 3 ML INHALE (14:27)
--- NOTE | 2024-05-06 14:35 | P.HPCC_ITS ---
History of Present Illness Date of Service: 05/06/24 Attending physician on admission: Jaqueline Painting Chief Complaint: Dyspnea Nataly is a 83 Y F w/ hyperlipidemia, diabetes mellitus, COPD presenting initially to emergency department on 05/06 w/ cough, dyspnea, found to be in mixed respiratory failure, necessitating BiPAP; work-up in emergency department included chest x-ray demonstrating bilateral opacities c/f pulmonary edema and/or infectious process Review of Systems 2 Review of Systems: Yes all other systems are reviewed and are negative [facility] Past Medical History Medical History Obesity (BMI 30-39.9) Overweight (BMI 25.0-29.9) Hypercholesterolemia COPD (chronic obstructive pulmonary disease) Type 2 diabetes mellitus with hyperglycemia Family History Family History Family/Other Medical history unknown Surgical History Surgical History No pertinent past surgical history Social History Social History Housing: House Alcohol intake: never Patient Tobacco Use Status: Former Tobacco user Tobacco use type: Cigarette Smoked in Last 30 Days: No e-Cigarette/Vaping Use: Never Used Second Hand Smoke Exposure: Yes Use of substances other than those prescribed or required for medical reasons: No Advance Directives: No Advance Directives Information Provided: No Nutrition Risks: No Nutritional Risk service: No Current occupational status: retired Cognitive needs: No Hearing needs: No Vision needs: Yes Meds Allergies Allergy/AdvReac Type Severity Reaction Status Date / Time lisinopril Allergy Unknown creatinine Verified 05/06/24 09:29 increase Active Medications: Current Medications Albuterol/Ipratropium (Albuterol/Iprat 2.5/0.5mg 3 Ml Ampul.Neb) 3 ml INHALE RQ4H WHILE AWAKE LETHA Ceftriaxone Sodium (Ceftriaxone Sodium 1 Gm Vial) 1 gm IVPUSH DAILY LETHA Dextrose (Dextrose 50 % 25 Gm/50 Ml Syringe) 25 gm IVPUSH Q15M PRN; Protocol PRN Reason: per Hypoglycemia Standing Ord. Enoxaparin Sodium (Enoxaparin Sodium 40 Mg/0.4 Ml Syringe) 40 mg SUBCUT Q24H LETHA Furosemide (Furosemide 20 Mg/2 Ml Vial) 20 mg IVPUSH BID@0900,1800 LETHA; Protocol Glucose (Glucose Gel 15 Gm Gel..Gram.) 15 gm PO Q15M PRN; Protocol PRN Reason: per Hypoglycemia Standing Ord. Azithromycin 500 mg/ Sodium (Chloride) 250 mls @ 125 mls/hr IV DAILY ONE Stop: 05/06/24 16:10 Insulin Human Lispro (Insulin Lispro 100 Unit/Ml 3 Ml Vial) 0 unit SUBCUT Q6H LETHA; Protocol Methylprednisolone Sodium Succinate (Methylprednisolone Sod Succ 125 Mg/2 Ml Vial) 60 mg IVPUSH DAILY [facility] Physical Exam 2 Vital Signs: Vital Signs: Last Vital Signs Temp 97.6 F 05/06/24 09:29 Pulse 111 H 05/06/24 14:27 Resp 24 H 05/06/24 14:27 BP 137/77 05/06/24 14:17 Pulse Ox 97 05/06/24 14:17 O2 Del Method Room Air 05/06/24 14:17 O2 Flow Rate 5 05/06/24 13:40 BMI result Body Mass Index 30.5 Results Labs 05/06/24 10:06 05/06/24 10:06 Labs: Laboratory Results - last 24 hr 05/06/24 05/06/24 05/06/24 10:06 10:28 11:22 MCV 86.9 MCH 28.0 MCHC 32.3 RDW 13.5 Plt Count 163 MPV 10.2 Immature Gran % (Auto) 0.2 Neut % (Auto) 78.6 H Lymph % (Auto) 12.5 L [place] % (Auto) 8.1 Eos % (Auto) 0.2 Baso % (Auto) 0.4 Lymph # (Auto) 0.7 L [place] # (Auto) 0.5 Eos # (Auto) 0.0 Baso # (Auto) 0.0 Abs Immat Gran (auto) 0.01 Absolute Neuts (auto) 4.4 Absolute Nucleated RBC 0.000 Nucleated RBC % (auto) 0.0 O2 Saturation ABG pH at Pt Temp ABG pCO2 at Pt Temp ABG pO2 at Pt Temp ABG HCO3 ABG Base Excess (Actual) VBG pH 7.48 H VBG pCO2 29 VBG pO2 114 VBG HCO3 22 VBG O2 Saturation 99.0 VBG Base Excess -0.3 Anion Gap 16 Estim Creat Clear Calc 45.8 Estimated GFR 58 Random Glucose 173 H Lactic Acid 0.8 Calcium 9.2 D Magnesium 1.5 L Total Bilirubin 0.9 AST 21 ALT 11 Alkaline Phosphatase 67 B-Natriuretic Peptide 290 H Total Protein 7.7 Albumin 3.8 Influenza Type A (PCR) NEGATIVE Influenza Type B (PCR) NEGATIVE RSV RNA Qual (PCR) NEGATIVE SARS-CoV-2 RNA (RT-PCR) NEGATIVE 05/06/24 13:58 MCV MCH MCHC RDW Plt Count MPV Immature Gran % (Auto) Neut % (Auto) Lymph % (Auto) [place] % (Auto) Eos % (Auto) Baso % (Auto) Lymph # (Auto) [place] # (Auto) Eos # (Auto) Baso # (Auto) Abs Immat Gran (auto) Absolute Neuts (auto) Absolute Nucleated RBC Nucleated RBC % (auto) O2 Saturation 98.0 ABG pH at Pt Temp 7.17 L* ABG pCO2 at Pt Temp 74 H* ABG pO2 at Pt Temp 116 H ABG HCO3 27 H ABG Base Excess (Actual) -2.6 VBG pH VBG pCO2 VBG pO2 VBG HCO3 VBG O2 Saturation VBG Base Excess Anion Gap Estim Creat Clear Calc Estimated GFR Random Glucose Lactic Acid Calcium Magnesium Total Bilirubin AST ALT Alkaline Phosphatase B-Natriuretic Peptide Total Protein Albumin Influenza Type A (PCR) Influenza Type B (PCR) RSV RNA Qual (PCR) SARS-CoV-2 RNA (RT-PCR) Assessment and Plan (1) COPD with acute exacerbation: Status: Acute (2) Acute respiratory failure with hypoxia and hypercapnia: Status: Acute Plan Nataly is a 83 Y F w/ hyperlipidemia, diabetes mellitus, COPD presenting initially to emergency department on 05/06 w/ cough, dyspnea, found to be in mixed respiratory failure, necessitating BiPAP N: encephalopathy, likely toxic-metabolic, to closely monitor CV: no acute issues; to closely monitor R: mixed respiratory failure, likely multi-factorial, d/t pulmonary edema and/or infectious process, COPD exacerbation; COPD management, empiric antibiotics GI: NPO while encephalopathic/on BiPAP : no acute issues H: no acute issues; chemical DVT prophylaxis w/ enoxaparin SQ ID: empiric azithryomcyin/ceftriaxone E: diabetes mellitus, insulin sliding scale P: no acute issues
[2024-05-06 15:05] LABS: Glucose, Whole Blood 199 mg/dL (60-115)
[2024-05-06] MEDS: Azithromycin 500 MG in 0.9 % Sodium Chloride 250 ML 125 MG IV (15:10)
[2024-05-06] MEDS: Enoxaparin Sodium 40 MG/0.4 ML SYRINGE SUBCUT (15:10)
[2024-05-06] MEDS: Magnesium Sulfate/D5W 1 GM/100 ML PIGGYBACK IV (15:11)
[2024-05-06 15:27] LABS: ABG Base Excess -2.8 mmol/L; ABG HCO3 25 mmol/L (22-26); ABG pCO2 61 mmHg (32-45); ABG pH 7.22 (7.35-7.45); ABG pO2 71 mmHg (83-108)
[2024-05-06] MEDS: Albuterol/Iprat 2.5/0.5MG 3 ML AMPUL.NEB INHALE ×2 (15:59→19:00)
[2024-05-06] MEDS: Norepinephrine Bitartrate/D5W 8 MG/250 ML PLAST..BAG 6.9 MG IVCONT (16:30)
[2024-05-06 16:56] LABS: Basophils Percent Auto 0.2 % (0-2); Hematocrit 35.2 % (37.0-47.0); Hemoglobin 11.1 g/dl (12.0-16.0); Imm Gran Abs Auto 0.03 X10*3/uL (0.00-0.03); Imm Gran Pct Auto 0.5 % (0.0-0.4); Lymphocytes Absolute Auto 0.2 X10*3/uL (1.2-4.9); Lymphocytes Percent Auto 3.9 % (20-40); MANUAL DIFF FLAG SCAN; Mean Corpuscular HGB Conc 31.5 g/dl (31.0-35.0); Mean Corpuscular Hemoglobin 28.3 pg (27.0-33.0); Mean Corpuscular Volume 89.8 fL (80.0-98.0); Mean Platelet Volume 9.5 fL (9.4-12.3); Monocytes Absolute Auto 0.1 X10*3/uL (0.1-1.2); Monocytes Percent Auto 2.2 % (2-11); Neutrophils Absolute Auto 5.8 x10*3/uL (2.0-8.3); Neutrophils Percent Auto 93.2 % (45-73); Platelet Count 166 X10*3/uL (160-400); Red Blood Count 3.92 X10*6/uL (4.20-5.50); Red Cell Distribution Width 13.5 % (11.0-16.0); SCAN SMEAR FLAG 1; White Blood Count 6.2 X10*3/uL (4.8-10.8)
[2024-05-06 17:14] LABS: Anion Gap 19 (12-20); Blood Urea Nitrogen 20 mg/dL (9-16); Calcium 8.8 mg/dL (8.4-10.2); Carbon Dioxide 20 mmol/L (22-29); Chloride 100 mmol/L (96-108); Creatinine Clr Calc Pharmacy 34.9; Estimated Glomerular Filt Rate 44; Glucose Random 270 mg/dL (60-115); Phosphorus 4.5 mg/dL (2.7-4.5); Potassium 4.1 mmol/L (3.3-5.1); Sodium 135 mmol/L (135-145)
[2024-05-06] MEDS: Piperacillin Sodium/Tazobactam 4.5 GM in 0.9 % Sodium Chloride 100 ML IV ×2 (17:20→22:10)
[2024-05-06 17:29] LABS: Troponin-I High Sensitivity 104.5 ng/L (<3.5-17.0)
[2024-05-06 18:00] LABS: SLIDE REVIEW VERIFIED
[2024-05-06] MEDS: vancomycin HCL 1,000 MG, vancomycin HCL 750 MG in 0.9 % Sodium Chloride 500 ML 267.5 MG IV (18:12)
--- NOTE | 2024-05-06 18:30 | PHA.PROG ---
Admission Date/Time: May 06, 2024 14:08 Indication: other Weight in k.6 kg Adjusted body weight in Kg: [place] body weight in Kg: Obesity Dosing Indication % IBW: Serum Creatinine - Last 168 Hours 05/06/24 05/06/24 10:06 16:47 Creatinine 0.92 1.17 Estimated CrCl and GFR - Last 168 Hours 05/06/24 05/06/24 10:06 16:47 Estim Creat Clear Calc 45.8 34.9 Estimated GFR 58 44 Vancomycin Loading Dose: 1750 Current Vancomycin Dosing Regimen: 1000 mg Q24 Vancomycin Monitoring using AUC goal of 400 - 600 range with trough as surrogate marker: 426 Date and Time for next Vancomycin Level to be drawn: 05/08 @1500 Pharmacist Comments on Vancomycin Plan: Patients indication shows other, when reading reports by clicker operator, it seems vanco is for empiric treatment. Vancomycin dosing will take advantage of [employer] as a clinical decision support tool that uses Bayesian modeling to calculate individual patient's pharmacokinetic parameters and forecast the patient's drug concentration time course with the target goal AUC 24 range of 400 - 600 mg/L/hr.
--- NOTE | 2024-05-06 18:53 | PM.EVENT ---
Documented by User: Jaqueline Painting MD 05/06/24 18:54 Event Note Date of Service: 05/06/24 Event Note: of note, physical exam from history and physical as follows: GEN: CV: RESP: GI: : SKIN: MSK: NEURO: PSYCH: Time Spent With Patient Time: Total time managing care of this patient today ____ minutes. Documented by User: Sheri Merino NP 05/07/24 00:36 Event Note Date of Service: 05/07/24 Event Note: of note, physical exam from history and physical as follows: GEN: cooperative, patient oriented x3, sleepy but arousable to light shaking CV: no JVD? Rate: tachycardia? Rhythm: regular rhythm RESP: normal respiratory effort Auscultation: expiratory rhonchi, regular rate, Pt on BiPap GI: positive bowel sounds in all 4 quadrants.? Soft to palpation. Non-tender SKIN: ?no rashes or lesions noted MSK: No bony abnormalities, no asymmetry, normal ROM NEURO: tone normal, moves all extremities and no meningeal signs PSYCH: Normal thought process, normal decision making.
--- NOTE | 2024-05-06 19:16 | PC.NURSE ---
Pt. admitted to ICU, arrived at approx 1545. Pt. lethargic, arouses briefly to vocal stimuli, A&Ox4. Pt. on bipap 20/5 30%, denies SOB, O2 sat sustaining >92%. Purewick in place, no UO- pt. bladder scanned for 336cc. notified- no new orders at this time. Family at bedside, updated by this RN. Plan of care ongoing.
[2024-05-06 19:21] LABS: ABG Refer to POC result
[2024-05-06 19:22] LABS: ABG Refer to POC result
[2024-05-06 21:11] LABS: Glucose, Whole Blood 297 mg/dL (60-115)
[2024-05-06] MEDS: Insulin Lispro 100 UNIT/ML 3 ML VIAL SUBCUT (21:15)
[2024-05-06 21:55] LABS: VBG Base Excess -2.6 mmol/L; VBG HCO3 24 mmol/L (22-26); VBG pCO2 48 mmHg; VBG pO2 49 mmHg
[2024-05-06 22:07] LABS: Appearance Urine Clear; Color Urine Yellow; Glucose Urine UA Negative (Negative); Leukocyte Esterase Urine Negative (Negative); Nitrite Urine Positive (Negative); PH 5.5 (5.0-9.0); Specific Gravity - Urine 1.015 (1.005-1.025); UMIC TRIGGER UACC YES; Urine Blood Trace (Negative); Urine Ketones Negative (Negative); Urine Protein 30 (1+) mg/dL (Neg-Trace)
[2024-05-06 22:13] LABS: Bacteria Urine 2+ (None Seen); Squamous Epithelial Cell Urine 0-2 /HPF (0-2); UACC Culture Trigger YES; WBC Urine 0-5 /HPF (0-5)
[2024-05-06 23:01] LABS: Venous Blood Gas Refer to POC result
[2024-05-07] VITALS (39 sets, daily range): BP systolic 77–167; BP diastolic 41–88; PULSE 77–121; RESP 16–24; TEMP 36.3–37.5; O2SAT 91–98; BMI 28.8
[2024-05-07 02:18] LABS: Glucose, Whole Blood 207 mg/dL (60-115)
[2024-05-07] MEDS: Insulin Lispro 100 UNIT/ML 3 ML VIAL SUBCUT ×4 (02:38→20:38)
[2024-05-07] MEDS: ondansetron HCL 4 MG/2 ML VIAL IVPUSH (02:44)
[2024-05-07 02:52] LABS: Troponin-I High Sensitivity 105.8 ng/L (<3.5-17.0)
[2024-05-07] MEDS: Piperacillin Sodium/Tazobactam 4.5 GM in 0.9 % Sodium Chloride 100 ML IV ×2 (04:17→11:10)
[2024-05-07 05:00] LABS: VBG Base Excess 1.1 mmol/L; VBG HCO3 27 mmol/L (22-26); VBG pCO2 48 mmHg; VBG pH 7.35 (7.32-7.43); VBG pO2 61 mmHg
[2024-05-07 05:15] LABS: Venous Blood Gas Refer to POC result
[2024-05-07 05:30] LABS: MANUAL DIFF FLAG NO
[2024-05-07 05:32] LABS: Basophils Percent Auto 0.1 % (0-2); Hematocrit 32.3 % (37.0-47.0); Imm Gran Abs Auto 0.03 X10*3/uL (0.00-0.03); Imm Gran Pct Auto 0.4 % (0.0-0.4); Lymphocytes Absolute Auto 0.8 X10*3/uL (1.2-4.9); Lymphocytes Percent Auto 11.3 % (20-40); Mean Corpuscular Hemoglobin 27.5 pg (27.0-33.0); Mean Platelet Volume 10.2 fL (9.4-12.3); Monocytes Percent Auto 14.4 % (2-11); Neutrophils Percent Auto 73.8 % (45-73); Platelet Count 202 X10*3/uL (160-400); Red Blood Count 3.63 X10*6/uL (4.20-5.50); Red Cell Distribution Width 13.6 % (11.0-16.0); White Blood Count 6.8 X10*3/uL (4.8-10.8)
[2024-05-07 05:50] LABS: Albumin Level 3.1 g/dL (3.5-5.0); Anion Gap 15 (12-20); Blood Urea Nitrogen 24 mg/dL (9-16); Calcium 8.6 mg/dL (8.4-10.2); Carbon Dioxide 23 mmol/L (22-29); Chloride 103 mmol/L (96-108); Creatinine Clr Calc Pharmacy 33.6; Estimated Glomerular Filt Rate 42; Glucose Random 156 mg/dL (60-115); Magnesium 1.8 mg/dL (1.6-2.6); Phosphorus 3.6 mg/dL (2.7-4.5); Potassium 3.7 mmol/L (3.3-5.1); Sodium 137 mmol/L (135-145)
[2024-05-07 06:01] LABS: Troponin-I High Sensitivity 107.5 ng/L (<3.5-17.0)
[2024-05-07 08:14] LABS: Glucose, Whole Blood 117 mg/dL (60-115)
[2024-05-07] MEDS: methylPREDNISolone Sod Succ 125 MG/2 ML VIAL 60 MG IVPUSH (08:44)
[2024-05-07 09:02] LABS: Troponin-I High Sensitivity 115.5 ng/L (<3.5-17.0)
[2024-05-07] MEDS: Albuterol/Iprat 2.5/0.5MG 3 ML AMPUL.NEB INHALE ×3 (09:05→19:10)
[2024-05-07] MEDS: iohexoL 350 MG/ML 75 ML INFUS..BTL 85 ML IV (09:59)
[2024-05-07] MEDS: Albumin Human 25 % 100 ML IV ×3 (10:24→20:38)
--- NOTE | 2024-05-07 10:27 | PC.NURSE ---
Alert and oriented , converses appropriately, MAP, BP this am <65 , Levophed adjusted as per protocol. Urine output 0-15 ml per hr ,. DR Norton aware .Pt went to CT scan of abdomen and pelvic , back to her room . AT 10;00 urine output 335 ml , updated urine output.
--- NOTE | 2024-05-07 11:23 | P.PNCC_ITS ---
Subjective Subjective Date of Service: 05/07/24 Interval History: 83-year-old lady with underlying history COPD, diabetes mellitus, obesity, hypertension admitted on 05/06/2024 with dyspnea secondary to acute hypoxic/hypercapnic respiratory failure requiring BiPAP support likely secondary to pulmonary edema. Patient treated with diuretics, with initial over-diuresis requiring pressor support, also empirically covered with broad-spectrum antibiotics and admitted to the intensive care unit. No events overnight. Titrated off BiPAP support and pressor support. Critical Care Time (minutes): 45 Physical Exam 2 Vital Signs: Vital Signs: Last Vital Signs Temp 99.0 F 05/07/24 11:00 Pulse 91 05/07/24 11:00 Resp 18 05/07/24 11:00 BP 121/61 05/07/24 11:00 Pulse Ox 92 05/07/24 11:00 O2 Del Method Oxymask 05/07/24 11:00 O2 Flow Rate 3 05/07/24 11:00 FiO2 92 05/07/24 11:00 BMI result Body Mass Index 28.8 Const: General: no acute distress and alert Nutritional Appearance: not obese Orientation/consciousness: Other orientation findings ( oriented) HEENT: Head: Yes atraumatic Eyes: General: appearance normal, both eyes and all related structures S clerae: sclerae normal EOM: EOMs intact bilaterally Neck: Neck: Yes supple Lymphatic: no lymphadenopathy noted Resp: Effort & Inspection: normal respiratory effort and no use of accessory muscles Auscultation: clear to auscultation bilaterally Cardio: Rate: tachycardic Rhythm: regular rhythm Heart sounds: no gallops, no murmurs and no rubs Skin: General skin exam: other ( warm) Extrem: General: No clubbing, No cyanosis and No edema Objective Data Labs 05/07/24 04:54 05/07/24 04:54 Labs: Laboratory Results - last 24 hr 05/06/24 05/06/24 05/06/24 11:22 13:58 14:57 WBC RBC Hgb Hct MCV MCH MCHC RDW Plt Count MPV Immature Gran % (Auto) Neut % (Auto) Lymph % (Auto) [place] % (Auto) Eos % (Auto) Baso % (Auto) Lymph # (Auto) [place] # (Auto) Eos # (Auto) Baso # (Auto) Abs Immat Gran (auto) Absolute Neuts (auto) Absolute Nucleated RBC Nucleated RBC % (auto) Smear Tech's Comments O2 Saturation 98.0 ABG pH at Pt Temp 7.17 L* ABG pCO2 at Pt Temp 74 H* ABG pO2 at Pt Temp 116 H ABG HCO3 27 H ABG Base Excess (Actual) -2.6 VBG pH VBG pCO2 VBG pO2 VBG HCO3 VBG O2 Saturation VBG Base Excess Sodium Potassium Chloride Carbon Dioxide Anion Gap BUN Creatinine Estim Creat Clear Calc Estimated GFR POC Glucose 199 H Random Glucose Lactic Acid 0.8 Calcium Phosphorus Magnesium Troponin I High Sens Albumin Hold Yellow Top Urine Color Urine Appearance Urine pH Ur Specific [place] Urine Protein Urine Glucose (UA) Urine Ketones Urine Blood Urine Nitrite Ur Leukocyte Esterase Urine RBC Urine WBC Ur Squamous Epith Cells Urine Bacteria Hyaline Casts 05/06/24 05/06/24 05/06/24 15:24 16:47 19:52 WBC 6.2 RBC 3.92 L Hgb 11.1 L Hct 35.2 L MCV 89.8 MCH 28.3 MCHC 31.5 RDW 13.5 Plt Count 166 MPV 9.5 Immature Gran % (Auto) 0.5 H Neut % (Auto) 93.2 H Lymph % (Auto) 3.9 L [place] % (Auto) 2.2 Eos % (Auto) 0.0 Baso % (Auto) 0.2 Lymph # (Auto) 0.2 L [place] # (Auto) 0.1 Eos # (Auto) 0.0 Baso # (Auto) 0.0 Abs Immat Gran (auto) 0.03 Absolute Neuts (auto) 5.8 Absolute Nucleated RBC 0.000 Nucleated RBC % (auto) 0.0 Smear Tech's Comments VERIFIED O2 Saturation 91.0 ABG pH at Pt Temp 7.22 L ABG pCO2 at Pt Temp 61 H* ABG pO2 at Pt Temp 71 L ABG HCO3 25 ABG Base Excess (Actual) -2.8 VBG pH VBG pCO2 VBG pO2 VBG HCO3 VBG O2 Saturation VBG Base Excess Sodium 135 Potassium 4.1 Chloride 100 Carbon Dioxide 20 L Anion Gap 19 BUN 20 H Creatinine 1.17 Estim Creat Clear Calc 34.9 Estimated GFR 44 POC Glucose Random Glucose 270 H Lactic Acid Calcium 8.8 Phosphorus 4.5 Magnesium 2.0 Troponin I High Sens 104.5 H* D 84.0 H* Albumin Hold Yellow Top See Note Urine Color Urine Appearance Urine pH Ur Specific [place] Urine Protein Urine Glucose (UA) Urine Ketones Urine Blood Urine Nitrite Ur Leukocyte Esterase Urine RBC Urine WBC Ur Squamous Epith Cells Urine Bacteria Hyaline Casts 05/06/24 05/06/24 05/06/24 20:59 21:06 21:51 WBC RBC Hgb Hct MCV MCH MCHC RDW Plt Count MPV Immature Gran % (Auto) Neut % (Auto) Lymph % (Auto) [place] % (Auto) Eos % (Auto) Baso % (Auto) Lymph # (Auto) [place] # (Auto) Eos # (Auto) Baso # (Auto) Abs Immat Gran (auto) Absolute Neuts (auto) Absolute Nucleated RBC Nucleated RBC % (auto) Smear Tech's Comments O2 Saturation ABG pH at Pt Temp ABG pCO2 at Pt Temp ABG pO2 at Pt Temp ABG HCO3 ABG Base Excess (Actual) VBG pH 7.30 L VBG pCO2 48 VBG pO2 49 VBG HCO3 24 VBG O2 Saturation 79.0 VBG Base Excess -2.6 Sodium Potassium Chloride Carbon Dioxide Anion Gap BUN Creatinine Estim Creat Clear Calc Estimated GFR POC Glucose 297 H Random Glucose Lactic Acid Calcium Phosphorus Magnesium Troponin I High Sens Albumin Hold Yellow Top Urine Color Yellow Urine Appearance Clear Urine pH 5.5 Ur Specific [place] 1.015 Urine Protein 30 (1+) H Urine Glucose (UA) Negative Urine Ketones Negative Urine Blood Trace H Urine Nitrite Positive H Ur Leukocyte Esterase Negative Urine RBC 3-5 H Urine WBC 0-5 Ur Squamous Epith Cells 0-2 Urine Bacteria 2+ Hyaline Casts 3-5 05/07/24 05/07/24 05/07/24 02:14 02:16 04:54 WBC 6.8 RBC 3.63 L Hgb 10.0 L Hct 32.3 L MCV 89.0 MCH 27.5 MCHC 31.0 RDW 13.6 Plt Count 202 MPV 10.2 Immature Gran % (Auto) 0.4 Neut % (Auto) 73.8 H Lymph % (Auto) 11.3 L [place] % (Auto) 14.4 H Eos % (Auto) 0.0 Baso % (Auto) 0.1 Lymph # (Auto) 0.8 L [place] # (Auto) 1.0 Eos # (Auto) 0.0 Baso # (Auto) 0.0 Abs Immat Gran (auto) 0.03 Absolute Neuts (auto) 5.0 Absolute Nucleated RBC 0.000 Nucleated RBC % (auto) 0.0 Smear Tech's Comments O2 Saturation ABG pH at Pt Temp ABG pCO2 at Pt Temp ABG pO2 at Pt Temp ABG HCO3 ABG Base Excess (Actual) VBG pH VBG pCO2 VBG pO2 VBG HCO3 VBG O2 Saturation VBG Base Excess Sodium 137 Potassium 3.7 Chloride 103 Carbon Dioxide 23 Anion Gap 15 BUN 24 H Creatinine 1.22 Estim Creat Clear Calc 33.6 Estimated GFR 42 POC Glucose 207 H Random Glucose 156 H Lactic Acid Calcium 8.6 Phosphorus 3.6 Magnesium 1.8 Troponin I High Sens 105.8 H* 107.5 H* Albumin 3.1 L Hold Yellow Top Urine Color Urine Appearance Urine pH Ur Specific [place] Urine Protein Urine Glucose (UA) Urine Ketones Urine Blood Urine Nitrite Ur Leukocyte Esterase Urine RBC Urine WBC Ur Squamous Epith Cells Urine Bacteria Hyaline Casts 05/07/24 05/07/24 05/07/24 04:56 08:09 08:30 WBC RBC Hgb Hct MCV MCH MCHC RDW Plt Count MPV Immature Gran % (Auto) Neut % (Auto) Lymph % (Auto) [place] % (Auto) Eos % (Auto) Baso % (Auto) Lymph # (Auto) [place] # (Auto) Eos # (Auto) Baso # (Auto) Abs Immat Gran (auto) Absolute Neuts (auto) Absolute Nucleated RBC Nucleated RBC % (auto) Smear Tech's Comments O2 Saturation ABG pH at Pt Temp ABG pCO2 at Pt Temp ABG pO2 at Pt Temp ABG HCO3 ABG Base Excess (Actual) VBG pH 7.35 VBG pCO2 48 VBG pO2 61 VBG HCO3 27 H VBG O2 Saturation 89.0 VBG Base Excess 1.1 Sodium Potassium Chloride Carbon Dioxide Anion Gap BUN Creatinine Estim Creat Clear Calc Estimated GFR POC Glucose 117 H Random Glucose Lactic Acid Calcium Phosphorus Magnesium Troponin I High Sens 115.5 H* Albumin Hold Yellow Top Urine Color Urine Appearance Urine pH Ur Specific [place] Urine Protein Urine Glucose (UA) Urine Ketones Urine Blood Urine Nitrite Ur Leukocyte Esterase Urine RBC Urine WBC Ur Squamous Epith Cells Urine Bacteria Hyaline Casts Progress Note: A&P Assessment and plan (1) Hypertension: Status: Acute (2) Peripheral vascular disease: Status: Acute (3) Obesity (BMI 30.0-34.9): Status: Acute (4) Type 2 diabetes mellitus with hyperglycemia: Status: Acute (5) COPD (chronic obstructive pulmonary disease): Status: Acute (6) Respiratory failure with hypoxia and hypercapnia: Status: Acute (7) Congestive heart failure: Status: Acute Plan Assessment: 83-year-old lady with underlying COPD and diabetes mellitus admitted with acute hypoxic and hypercapnic respiratory failure requiring BiPAP support and pressor support likely secondary to initial over diuresis, now improving Plan: Neuro: No acute issues. Cardiac: Titrated off pressor support. 2D echo is pending. Likely underlying congestive heart failure. Pulmonary: Acute hypoxic and hypercapnic respiratory failure likely secondary to exacerbation of underlying suspected congestive heart failure, improved with diuresis, titrated off BiPAP support. Continue to titrate off supplemental oxygen as tolerated. Renal: No acute issues. Endo: No acute issues. GI: No acute issues. ID: Empiric broad-spectrum antibiotic coverage while cultures are pending. Heme/Onc: No acute issues. Psych: No acute issues. Miscellaneous: No acute issues. Prophylaxis: Heparin Diet: diabetic Critical care time spent: 45 minutes Quality Stroke Does the patient have a stroke diagnosis?: No VTE Prior VTE?: No VTE Risk Level:: Medical - moderate - high VTE Device Contraindication: N/A - Device Ordered VTE Drug Contraindication: N/A - Med Ordered
--- NOTE | 2024-05-07 11:31 | PC.NURSE ---
BP 125/74 MAP 91 , Levophed decreased to 0.[address] Norton order , no n/v ,passed nursing dysphasia screening , Pt will have a diet
--- NOTE | 2024-05-07 11:40 | PC.NURSE ---
Piperacillin 4.5 gm IV started at 11:10 am and infused , dose was decresed by MD and next administration time will be in 6 hrs
--- NOTE | 2024-05-07 13:11 | PC.NURSE ---
Levophed titrated off at 12:30 , MAP remains above 65
--- NOTE | 2024-05-07 13:20 | MHC.CM.PN ---
Met with pt and dtr to review d/c planning: pt resides with family and states she has plenty of help Family assists with transportation, no services or DME used. Pt will return to home when medically stable. Dtr to transport. IMM given: HCP at home/copy requested.
[2024-05-07 14:12] LABS: Glucose, Whole Blood 217 mg/dL (60-115)
[2024-05-07] MEDS: Enoxaparin Sodium 40 MG/0.4 ML SYRINGE SUBCUT (14:23)
--- NOTE | 2024-05-07 15:21 | PM.EVENT ---
Event Note Date of Service: 05/07/24 Event Note: ICU transfer, discussed with ICU attending Acute hypoxic respiratory failure secondary to COPD versus acute congestive heart failure Received IV Lasix in the ER which dropped her pressures and patient required pressors in the ICU well as BiPAP. Patient was titrated off pressors and off BiPAP on 2 L nasal cannula at this time. Time Spent With Patient Time: Total time managing care of this patient today ____ minutes.
--- NOTE | 2024-05-07 15:28 | PC.NURSE ---
Irizarry cath removed at 15;25 , due to void at 21:25
[2024-05-07 16:35] LABS: Glucose, Whole Blood 193 mg/dL (60-115)
[2024-05-07] MEDS: vancomycin HCL 1,000 MG in 0.9 % Sodium Chloride 250 ML 270 MG IV (17:05)
[2024-05-07 20:04] LABS: Glucose, Whole Blood 157 mg/dL (60-115)
[2024-05-08] VITALS (7 sets, daily range): BP systolic 122–161; BP diastolic 63–88; PULSE 69–130; RESP 16–22; TEMP 36.4–37; O2SAT 82–98; BMI 28.8
[2024-05-08 02:05] LABS: Glucose, Whole Blood 93 mg/dL (60-115)
[2024-05-08] MEDS: Albumin Human 25 % 100 ML IV (03:30)
[2024-05-08 06:59] LABS: Venous Blood Gas Refer to POC result
--- NOTE | 2024-05-08 07:00 | CA_ITS ---
Transthoracic Echocardiogram Patient (Last, First, Middle): Gretchen Schafer, Gender: Female Date of : 1940 Age: 83 Procedure Date: 05/08/2024 Procedure Type: Transthoracic Echocardiogram Location: [facility] [place] Height: 160.02 cm Weight: 73.48 kg BSA: 1.77 m2 Heart Rate: bpm BP: 126 / 80 mmHg Steam Trap Man: TO Referring MD: Tyrell Norton MD Symptoms: dyspnea Study Quality: Adequate w contrast ECG Rhythm: Sinus Conclusions: - Normal left ventricular cavity size. There is normal left ventricular wall thickness. The left ventricular systolic function is hyperdynamic. The visually estimated ejection fraction is >70%. - Diastolic function is indeterminate on the basis of available data. - Normal right ventricular cavity size and systolic function. Findings Left Ventricle Normal left ventricular cavity size. There is normal left ventricular wall thickness. The left ventricular systolic function is hyperdynamic. The visually estimated ejection fraction is >70%. There is no evidence of regional wall motion abnormalities. Diastolic function is indeterminate on the basis of available data. Right Ventricle Normal right ventricular cavity size and systolic function. Atria The left atrium is normal in size. The right atrium is normal in size. Aortic Valve There is a normal trileaflet aortic valve. There is mild calcification of the aortic valve. There is no aortic valve stenosis. There is no aortic valve regurgitation. Mitral Valve There is moderate mitral annular calcification. There is no mitral valve regurgitation. There is no mitral valve stenosis. Pulmonic Valve The pulmonic valve is likely normal. There is no pulmonic valve regurgitation. Tricuspid Valve Likely normal tricuspid valve structure and function. Normal right atrial pressure. There is no evidence of pulmonary hypertension. Great Vessels All visible segments of the aorta are normal in size. Venous The inferior vena cava is normal in size and collapses greater than 50% with inspiration. Pericardium/Pleural There is no evidence of pericardial effusion. Prior Study Comparison No prior study available for comparison. Measurements 2D Linear Measurements IVSd: 0.86 0.6-0.9/0.6-1.0 cm LVIDd: 4.26 3.9-5.3/4.2-5.9 cm LVIDd Index: 2.41 2.4-3.2/2.2-3.1 cm/m2 LVIDs: 2.73 2.0-3.6 cm LVPWd: 0.68 0.7-1.1 cm LA Diam: 2.50 2.7-3.8/3.0-4.0 cm LAIDs Index: 1.41 1.5-2.3 cm/m2 LV Mass: 122.52 67-162/88-224 g LV Mass Index: 69.22 43-95/49-115 g/m2 LVOT Diam: 2.00 3.0+(-)1.3 cm 2D Systolic Function EF 4C: 60.60 >55% Mitral Valve E'Lateral: 4.90 E'Medial: 4.90 Aortic Valve AoV Pk Neil: 1.38 AoV Mn Neil: 0.93 AoV VTI: 0.26 AoV Pk Grad: 8.00 Aov Mn Grad: 4.00 TEJ Cont.VTI: 2.28 LVOT LVOT Pk Neil: 1.13 LVOT Mn Neil: 0.69 LVOT VTI: 0.19 LVOT Pk Grad: 5.00 LVOT Mn Grad: 2.00 LVOT Diam: 2.00 LVOT Area: 3.14 Diastolic Function E'Medial: 4.90 E' Laterial: 4.90 Tricuspid Valve TR Pk Neil: 2.00 TR Pk Grad: 16.00 RA Press: 8.00 RVSP: 24.00 Great Vessels Aorta Ao Asc: 3.70 2.1-3.4 cm Updated in Other Vendor System with Status of Final Toby Rojas MD electronically signed on 05/08/2024 3:31:06 PM with status of Final
[2024-05-08 07:03] LABS: VBG Base Excess 4.2 mmol/L; VBG HCO3 31 mmol/L (22-26); VBG pCO2 61 mmHg; VBG pH 7.31 (7.32-7.43); VBG pO2 46 mmHg
[2024-05-08 07:04] LABS: MANUAL DIFF FLAG NO
[2024-05-08 07:08] LABS: Basophils Percent Auto 0.2 % (0-2); Hematocrit 29.6 % (37.0-47.0); Imm Gran Abs Auto 0.02 X10*3/uL (0.00-0.03); Imm Gran Pct Auto 0.4 % (0.0-0.4); Lymphocytes Absolute Auto 1.1 X10*3/uL (1.2-4.9); Lymphocytes Percent Auto 18.7 % (20-40); Mean Corpuscular HGB Conc 30.4 g/dl (31.0-35.0); Mean Corpuscular Hemoglobin 27.6 pg (27.0-33.0); Mean Corpuscular Volume 90.8 fL (80.0-98.0); Mean Platelet Volume 9.6 fL (9.4-12.3); Monocytes Absolute Auto 0.6 X10*3/uL (0.1-1.2); Monocytes Percent Auto 10.2 % (2-11); Neutrophils Percent Auto 70.5 % (45-73); Platelet Count 168 X10*3/uL (160-400); Red Blood Count 3.26 X10*6/uL (4.20-5.50); White Blood Count 5.6 X10*3/uL (4.8-10.8)
[2024-05-08 07:27] LABS: Albumin Level 3.9 g/dL (3.5-5.0); Anion Gap 10 (12-20); Blood Urea Nitrogen 24 mg/dL (9-16); Calcium 9.3 mg/dL (8.4-10.2); Carbon Dioxide 28 mmol/L (22-29); Chloride 107 mmol/L (96-108); Creatinine Clr Calc Pharmacy 33.6; Estimated Glomerular Filt Rate 42; Glucose Random 82 mg/dL (60-115); Magnesium 1.9 mg/dL (1.6-2.6); Phosphorus 3.2 mg/dL (2.7-4.5); Sodium 141 mmol/L (135-145)
[2024-05-08 07:48] LABS: Glucose, Whole Blood 71 mg/dL (60-115)
--- NOTE | 2024-05-08 11:40 | P.PNIM_ITS ---
Subjective Subjective Date of Service: 05/08/24 Review of Systems Follow up CHF, COPD Feeling better but still some sob with exertion Physical Exam 2 Vital Signs: Vital Signs: Last Vital Signs Temp 97.7 F 05/08/24 10:37 Pulse 105 H 05/08/24 10:37 Resp 18 05/08/24 10:37 BP 140/75 H 05/08/24 10:37 Pulse Ox 92 05/08/24 10:37 O2 Del Method Nasal Cannula 05/08/24 10:37 O2 Flow Rate 2 05/08/24 10:37 FiO2 28 05/07/24 15:46 BMI result Body Mass Index 28.8 Appearing in no acute distress lung smild exp wheezing heart regular rate rhythm, clear S1, S2 positive bowel sounds, abdomen is soft, nontender neuro patient is alert x3, no focal deficits Objective Data Active Medications Albuterol/Ipratropium (Albuterol/Iprat 2.5/0.5mg 3 Ml Ampul.Neb) 3 ml INHALE RQ4H WHILE AWAKE [facility] Last Admin: 05/08/24 07:53 Dose: Not Given Documented By: ELIEZER Non-Admin Reason: pt eating, low glucos Atorvastatin Calcium (Atorvastatin Calcium 40 Mg Tablet) 40 mg PO BEDTIME [facility] Dextrose (Dextrose 50 % 25 Gm/50 Ml Syringe) 25 gm IVPUSH Q15M PRN; Protocol PRN Reason: per Hypoglycemia Standing Ord. Enoxaparin Sodium (Enoxaparin Sodium 40 Mg/0.4 Ml Syringe) 40 mg SUBCUT Q24H [facility] Last Admin: 05/07/24 14:23 Dose: 40 mg Documented By: DEJUAN Glucose (Glucose Gel 15 Gm Gel..Gram.) 15 gm PO Q15M PRN; Protocol PRN Reason: per Hypoglycemia Standing Ord. Vancomycin HCl 1,000 mg/ (Sodium Chloride) 270 mls @ 270 mls/hr IV Q24H [facility] Last Infusion: 05/07/24 18:19 Dose: Infused Documented By: DEJUAN Piperacillin Sod/Tazobactam (Sod 3.375 gm/ Sodium Chloride) 100 mls @ 200 mls/hr IV Q6H [facility] Last Infusion: 05/08/24 06:45 Dose: Infused Documented By: PEARL Insulin Human Lispro (Insulin Lispro 100 Unit/Ml 3 Ml Vial) 0 unit SUBCUT QIDACHS [facility]; Protocol Last Admin: 05/08/24 08:15 Dose: Not Given Documented By: PEARL Non-Admin Reason: No Insulin Coverage Metoprolol Succinate (Metoprolol Succinate Er 100 Mg Tab.Er.24h) 100 mg PO DAILY [facility]; Protocol Nifedipine (Nifedipine Er 60 Mg Tab.Er.24) 60 mg PO DAILY [facility] Ondansetron HCl (Ondansetron Hcl 4 Mg/2 Ml Vial) 4 mg IVPUSH Q6H PRN PRN Reason: Nausea and Vomiting Last Admin: 05/07/24 02:44 Dose: 4 mg Documented By: JAMIE Pharmacy Consult (Consult Rx Vancomycin Dosing) 1 each MISCELLANE DAILY PRN PRN Reason: Consult order Labs 05/08/24 06:53 05/08/24 06:53 Labs: Laboratory Results - last 24 hr 05/07/24 05/07/24 05/07/24 14:08 16:30 19:58 MCV MCH MCHC RDW Plt Count MPV Immature Gran % (Auto) Neut % (Auto) Lymph % (Auto) [place] % (Auto) Eos % (Auto) Baso % (Auto) Lymph # (Auto) [place] # (Auto) Eos # (Auto) Baso # (Auto) Abs Immat Gran (auto) Absolute Neuts (auto) Absolute Nucleated RBC Nucleated RBC % (auto) VBG pH VBG pCO2 VBG pO2 VBG HCO3 VBG O2 Saturation VBG Base Excess Anion Gap Estim Creat Clear Calc Estimated GFR POC Glucose 217 H 193 H 157 H Random Glucose Calcium Phosphorus Magnesium Albumin 05/08/24 05/08/24 05/08/24 02:01 06:53 06:58 MCV 90.8 MCH 27.6 MCHC 30.4 L RDW 14.0 Plt Count 168 MPV 9.6 Immature Gran % (Auto) 0.4 Neut % (Auto) 70.5 Lymph % (Auto) 18.7 L [place] % (Auto) 10.2 Eos % (Auto) 0.0 Baso % (Auto) 0.2 Lymph # (Auto) 1.1 L [place] # (Auto) 0.6 Eos # (Auto) 0.0 Baso # (Auto) 0.0 Abs Immat Gran (auto) 0.02 Absolute Neuts (auto) 4.0 Absolute Nucleated RBC 0.000 Nucleated RBC % (auto) 0.0 VBG pH 7.31 L VBG pCO2 61 VBG pO2 46 VBG HCO3 31 H VBG O2 Saturation 74.0 VBG Base Excess 4.2 Anion Gap 10 L Estim Creat Clear Calc 33.6 Estimated GFR 42 POC Glucose 93 Random Glucose 82 Calcium 9.3 D Phosphorus 3.2 Magnesium 1.9 Albumin 3.9 05/08/24 07:44 MCV MCH MCHC RDW Plt Count MPV Immature Gran % (Auto) Neut % (Auto) Lymph % (Auto) [place] % (Auto) Eos % (Auto) Baso % (Auto) Lymph # (Auto) [place] # (Auto) Eos # (Auto) Baso # (Auto) Abs Immat Gran (auto) Absolute Neuts (auto) Absolute Nucleated RBC Nucleated RBC % (auto) VBG pH VBG pCO2 VBG pO2 VBG HCO3 VBG O2 Saturation VBG Base Excess Anion Gap Estim Creat Clear Calc Estimated GFR POC Glucose 71 Random Glucose Calcium Phosphorus Magnesium Albumin Microbiology Microbiology Results: Microbiology 05/06/24 Unknown Urine Culture - Final Urine Catheterized - Irizarry Catheter No growth. 05/06/24 11:22 Blood Culture - Preliminary Blood - Venous No growth after 24 hours. 05/06/24 11:12 Blood Culture - Preliminary Blood - Venous No growth after 24 hours. Assessment and Plan (1) Congestive heart failure: Status: Acute (2) COPD with acute exacerbation: Status: Acute Plan 83-year-old woman admitted to the ICU initially due to hypotension secondary to over diuresis requiring pressor support. Treated for acute congestive heart failure requiring BiPAP. Transferred from ICU 05/07/2024 Diarrhea x2 Stool studies and cdiff Acute hypoxic respiratory failure secondary to acute congestive heart failure and possibly COPD exacerbation initially treated with antibiotics empirically but symptoms were related to heart failure s/p IV Lasix Echocardiogram pending Continue prednisone and DuoNebs Continue supplemental oxygen to keep oxygen saturation greater than 90 PT consult and home o2 eval pending Diabetes mellitus type 2 Continue sliding scale, ADA diet Hypertension Stable blood pressure Continue nifedipine Hyperlipidemia Continue statin DVT prophylaxis with Lovenox Quality Stroke Does the patient have a stroke diagnosis?: No VTE Prior VTE?: No VTE Risk Level:: Medical - moderate - high VTE Device Contraindication: N/A - Device Ordered VTE Drug Contraindication: N/A - Med Ordered
[2024-05-08 12:08] LABS: Glucose, Whole Blood 81 mg/dL (60-115)
[2024-05-08] MEDS: predniSONE 20 MG TABLET 40 MG PO (12:08)
[2024-05-08 14:04] LABS: Vancomycin Random 16.6 mcg/mL (15-20)
[2024-05-08] MEDS: Albuterol/Iprat 2.5/0.5MG 3 ML AMPUL.NEB INHALE (14:56)
--- NOTE | 2024-05-08 15:52 | PM.DS ---
DS: Providers Provider Date of admission: 05/06/24 14:08 Primary care physician: Rell Kasper MD DS: Diagnosis Discharge Diagnosis (1) Congestive heart failure: Status: Acute (2) COPD with acute exacerbation: Status: Acute DS: Summary Hospital Course Hospital Course: History and physical as per admitting provider Nataly gilbert a 83 Y F w/ hyperlipidemia, diabetes mellitus, COPD presenting initially to emergency department on 05/06 w/ cough, dyspnea, found to be in mixed respiratory failure, necessitating BiPAP; work-up in emergency department included chest x-ray demonstrating bilateral opacities c/f pulmonary edema and/or infectious process 83-year-old woman treated for initially hypotension secondary to over diuresis in the ER. Transferred to ICU for pressor support and BiPAP. Chest x-ray had shown bilateral opacities with pulmonary edema. Patient was transferred to medical floor on 05/07 off pressors and BiPAP. Due to acute hypoxic respiratory failure secondary to acute congestive heart failure and COPD exacerbation, Home oxygen evaluation today showed that patient requires 2 L with exertion. Antibiotics completed, short prednisone taper. Diabetes mellitus type 2. Continue home medications Hypertension. Continue nifedipine Hyponatremia. Continue statin Physical Exam Vital Signs: Vital Signs: Last Vital Signs Temp 97.7 F 05/08/24 10:37 Pulse 105 H 05/08/24 14:56 Resp 22 H 05/08/24 14:56 BP 140/75 H 05/08/24 10:37 Pulse Ox 92 05/08/24 10:37 O2 Del Method Nasal Cannula 05/08/24 10:37 O2 Flow Rate 2 05/08/24 10:37 FiO2 28 05/07/24 15:46 BMI result Body Mass Index 28.8 DS: Data Data Completed and Pending Labs on day of discharge: Laboratory Results - last 24 hr 05/07/24 05/07/24 05/08/24 16:30 19:58 02:01 WBC RBC Hgb Hct MCV MCH MCHC RDW Plt Count MPV Immature Gran % (Auto) Neut % (Auto) Lymph % (Auto) [place] % (Auto) Eos % (Auto) Baso % (Auto) Lymph # (Auto) [place] # (Auto) Eos # (Auto) Baso # (Auto) Abs Immat Gran (auto) Absolute Neuts (auto) Absolute Nucleated RBC Nucleated RBC % (auto) VBG pH VBG pCO2 VBG pO2 VBG HCO3 VBG O2 Saturation VBG Base Excess Sodium Potassium Chloride Carbon Dioxide Anion Gap BUN Creatinine Estim Creat Clear Calc Estimated GFR POC Glucose 193 H 157 H 93 Random Glucose Calcium Phosphorus Magnesium Albumin Random Vancomycin 05/08/24 05/08/24 05/08/24 06:53 06:58 07:44 WBC 5.6 RBC 3.26 L Hgb 9.0 L Hct 29.6 L MCV 90.8 MCH 27.6 MCHC 30.4 L RDW 14.0 Plt Count 168 MPV 9.6 Immature Gran % (Auto) 0.4 Neut % (Auto) 70.5 Lymph % (Auto) 18.7 L [place] % (Auto) 10.2 Eos % (Auto) 0.0 Baso % (Auto) 0.2 Lymph # (Auto) 1.1 L [place] # (Auto) 0.6 Eos # (Auto) 0.0 Baso # (Auto) 0.0 Abs Immat Gran (auto) 0.02 Absolute Neuts (auto) 4.0 Absolute Nucleated RBC 0.000 Nucleated RBC % (auto) 0.0 VBG pH 7.31 L VBG pCO2 61 VBG pO2 46 VBG HCO3 31 H VBG O2 Saturation 74.0 VBG Base Excess 4.2 Sodium 141 Potassium 4.0 Chloride 107 Carbon Dioxide 28 Anion Gap 10 L BUN 24 H Creatinine 1.22 Estim Creat Clear Calc 33.6 Estimated GFR 42 POC Glucose 71 Random Glucose 82 Calcium 9.3 D Phosphorus 3.2 Magnesium 1.9 Albumin 3.9 Random Vancomycin 05/08/24 05/08/24 12:00 13:44 WBC RBC Hgb Hct MCV MCH MCHC RDW Plt Count MPV Immature Gran % (Auto) Neut % (Auto) Lymph % (Auto) [place] % (Auto) Eos % (Auto) Baso % (Auto) Lymph # (Auto) [place] # (Auto) Eos # (Auto) Baso # (Auto) Abs Immat Gran (auto) Absolute Neuts (auto) Absolute Nucleated RBC Nucleated RBC % (auto) VBG pH VBG pCO2 VBG pO2 VBG HCO3 VBG O2 Saturation VBG Base Excess Sodium Potassium Chloride Carbon Dioxide Anion Gap BUN Creatinine Estim Creat Clear Calc Estimated GFR POC Glucose 81 Random Glucose Calcium Phosphorus Magnesium Albumin Random Vancomycin 16.6 Preliminary micro results at discharge 05/06/24 11:22 Blood Culture - Preliminary Blood - Venous No growth after 48 hours. 05/06/24 11:12 Blood Culture - Preliminary Blood - Venous No growth after 48 hours. Discharge Plan Discharge Discharge Diagnosis: Hypotension Congestive heart failure Acute hypoxic respiratory failure Referrals: Po,Rell Cuba MD [Primary Care Provider] - 1 Week Discharge Medications: New prednisone 10 mg tablet See Taper PO DIRECTED Qty: 30 0RF Taper: Prednisone 40 mg daily for 3 Days and 0 Hour 30 mg daily for 3 Days and 0 Hour 20 mg daily for 3 Days and 0 Hour 10 mg daily for 3 Days and 0 Hour Rx Instructions: see taper instructions Continued fluticasone propion-salmeterol [Advair Diskus] 250-50 mcg/dose blister with device 1 inh inhalation BID Qty: 60 11RF albuterol sulfate 90 mcg/actuation HFA aerosol inhaler 2 puff inhalation Q6H PRN (Reason: bronchospasm) Qty: 8.5 3RF metformin 500 mg tablet 500 mg PO BID Qty: 180 3RF nifedipine 60 mg tablet extended release 60 mg PO DAILY 30 Days Qty: 90 3RF (DME) jason.stocking,knee,reg,xlrg Misc See Rx Instructions .Route Qty: 12 0RF Rx Instructions: As directed 20-30 mm HG atorvastatin 40 mg tablet 40 mg PO BEDTIME Qty: 90 4RF metoprolol succinate 100 mg tablet extended release 24 hr 100 mg PO DAILY Qty: 90 2RF Diet: Advance to usual diet Activity on Discharge: As tolerated Print Language: [place] Care Plan Goals: You are started on oxygen, 2 L with exertion. Follow up with your primary care provider for management of the Health Concerns: Hypotension Congestive heart failure Acute hypoxic respiratory failure Plan of Treatment: Follow up with primary care provider as needed Take all medications as Assessment: See discharge summary
[2024-05-08] MEDS: Enoxaparin Sodium 40 MG/0.4 ML SYRINGE SUBCUT (16:01)
[2024-05-08 17:36] LABS: Glucose, Whole Blood 156 mg/dL (60-115)
[2024-05-08] MEDS: Insulin Lispro 100 UNIT/ML 3 ML VIAL SUBCUT ×2 (18:18→19:45)
[2024-05-08] MEDS: Atorvastatin Calcium 40 MG TABLET PO (19:42)
[2024-05-08 19:53] LABS: Glucose, Whole Blood 305 mg/dL (60-115)
[2024-05-09] VITALS (12 sets, daily range): BP systolic 142–161; BP diastolic 74–98; PULSE 82–106; RESP 16–20; TEMP 36.2–37.1; O2SAT 92–98
[2024-05-09] MEDS: Albuterol/Iprat 2.5/0.5MG 3 ML AMPUL.NEB INHALE ×3 (07:42→20:16)
[2024-05-09 07:57] LABS: Anion Gap 9 (12-20); Blood Urea Nitrogen 19 mg/dL (9-16); Calcium 9.4 mg/dL (8.4-10.2); Carbon Dioxide 28 mmol/L (22-29); Chloride 107 mmol/L (96-108); Creatinine Clr Calc Pharmacy 49.4; Estimated Glomerular Filt Rate > 60; Glucose Random 86 mg/dL (60-115); Magnesium 1.9 mg/dL (1.6-2.6); Potassium 4.3 mmol/L (3.3-5.1); Sodium 140 mmol/L (135-145)
[2024-05-09 08:21] LABS: Glucose, Whole Blood 82 mg/dL (60-115)
[2024-05-09] MEDS: NIFEdipine ER 60 MG TAB.ER.24 PO (09:22)
[2024-05-09] MEDS: predniSONE 20 MG TABLET 40 MG PO (09:22)
[2024-05-09] MEDS: Metoprolol Succinate ER 100 MG TAB.ER.24H PO (09:23)
[2024-05-09] MEDS: Furosemide 20 MG TABLET PO (11:33)
[2024-05-09 11:42] LABS: Glucose, Whole Blood 112 mg/dL (60-115)
--- NOTE | 2024-05-09 11:54 | HO.PM.IMPN ---
Subjective Subjective Date of Service: 05/09/24 Interval History: copd,chf Review of Systems sob seems somewhat improving Physical Exam Vital Signs: Vital Signs: Last Vital Signs Temp 97.8 F 05/09/24 11:37 Pulse 82 05/09/24 11:37 Resp 20 05/09/24 11:37 BP 161/96 H 05/09/24 11:37 Pulse Ox 96 05/09/24 11:37 O2 Del Method Nasal Cannula 05/09/24 11:37 O2 Flow Rate 2 05/09/24 11:37 FiO2 28 05/07/24 15:46 BMI result Body Mass Index 28.8 Appearing in no acute distress lung smild exp wheezing heart regular rate rhythm, clear S1, S2 positive bowel sounds, abdomen is soft, nontender neuro patient is alert x3, no focal deficits Objective Data Active Medications Albuterol/Ipratropium (Albuterol/Iprat 2.5/0.5mg 3 Ml Ampul.Neb) 3 ml INHALE RQ4H WHILE AWAKE [facility] Last Admin: 05/09/24 11:34 Dose: 3 ml Documented By: ELIEZER Atorvastatin Calcium (Atorvastatin Calcium 40 Mg Tablet) 40 mg PO BEDTIME [facility] Last Admin: 05/08/24 19:42 Dose: 40 mg Documented By: MOHINDER Dextrose (Dextrose 50 % 25 Gm/50 Ml Syringe) 25 gm IVPUSH Q15M PRN; Protocol PRN Reason: per Hypoglycemia Standing Ord. Enoxaparin Sodium (Enoxaparin Sodium 40 Mg/0.4 Ml Syringe) 40 mg SUBCUT Q24H [facility] Last Admin: 05/08/24 16:01 Dose: 40 mg Documented By: PEARL Furosemide (Furosemide 20 Mg Tablet) 20 mg PO DAILY [facility]; Protocol Last Admin: 05/09/24 11:33 Dose: 20 mg Documented By: LIS Glucose (Glucose Gel 15 Gm Gel..Gram.) 15 gm PO Q15M PRN; Protocol PRN Reason: per Hypoglycemia Standing Ord. Insulin Human Lispro (Insulin Lispro 100 Unit/Ml 3 Ml Vial) 0 unit SUBCUT QIDACHS [facility]; Protocol Last Admin: 05/09/24 11:39 Dose: Not Given Documented By: LIS Non-Admin Reason: No Insulin Coverage Comments: [id number] Metoprolol Succinate (Metoprolol Succinate Er 100 Mg Tab.Er.24h) 100 mg PO DAILY [facility]; Protocol Last Admin: 05/09/24 09:23 Dose: 100 mg Documented By: LIS Nifedipine (Nifedipine Er 60 Mg Tab.Er.24) 60 mg PO DAILY [facility] Last Admin: 05/09/24 09:22 Dose: 60 mg Documented By: LIS Ondansetron HCl (Ondansetron Hcl 4 Mg/2 Ml Vial) 4 mg IVPUSH Q6H PRN PRN Reason: Nausea and Vomiting Last Admin: 05/07/24 02:44 Dose: 4 mg Documented By: MOOSEUMOC Prednisone (Prednisone 20 Mg Tablet) 40 mg PO DAILY [facility] Last Admin: 05/09/24 09:22 Dose: 40 mg Documented By: LIS Labs 05/08/24 06:53 05/09/24 06:42 Labs: Laboratory Results - last 24 hr 05/08/24 05/08/24 05/08/24 12:00 13:44 17:33 Hold Purple Top Anion Gap Estim Creat Clear Calc Estimated GFR POC Glucose 81 156 H Random Glucose Calcium Magnesium Random Vancomycin 16.6 05/08/24 05/09/24 05/09/24 19:45 06:42 07:55 Hold Purple Top SEE NOTE Anion Gap 9 L Estim Creat Clear Calc 49.4 Estimated GFR > 60 POC Glucose 305 H 82 Random Glucose 86 Calcium 9.4 Magnesium 1.9 Random Vancomycin 05/09/24 11:37 Hold Purple Top Anion Gap Estim Creat Clear Calc Estimated GFR POC Glucose 112 Random Glucose Calcium Magnesium Random Vancomycin Microbiology Microbiology Results: Microbiology 05/06/24 11:22 Blood Culture - Preliminary Blood - Venous No growth after 48 hours. 05/06/24 11:12 Blood Culture - Preliminary Blood - Venous No growth after 48 hours. Assessment and Plan (1) Congestive heart failure: Status: Acute Assessment and Plan: 83-year-old woman admitted to the ICU initially due to hypotension secondary to over diuresis requiring pressor support. Treated for acute congestive heart failure requiring BiPAP. Transferred from ICU 05/07/2024 Diarrhea x2 Stool studies and cdiff Acute hypoxic respiratory failure secondary to acute congestive heart failure (possible HFpEF))and possibly COPD exacerbation initially treated with antibiotics empirically but symptoms were related to heart failure s/p IV Lasix Echocardiogram: ef is 70% Continue prednisone and DuoNebs,added po lasix Continue supplemental oxygen to keep oxygen saturation greater than 90 PT consult and home o2 eval pending Diabetes mellitus type 2 Continue sliding scale, ADA diet Hypertension Stable blood pressure Continue nifedipine Hyperlipidemia Continue statin DVT prophylaxis with Lovenox Quality Stroke Does the patient have a stroke diagnosis?: No VTE Prior VTE?: No VTE Risk Level:: Medical - moderate - high VTE Device Contraindication: N/A - Device Ordered VTE Drug Contraindication: N/A - Med Ordered
--- NOTE | 2024-05-09 14:20 | MHC.CM.PN ---
EMR reviewed and per MD rounds, pt is not medically cleared for discharge due to management of CHF/COPD. This CM met with pt to discuss discharge plans, she declines going to [facility] and would prefer to go home [facility] updated.
[2024-05-09 16:04] LABS: Glucose, Whole Blood 194 mg/dL (60-115)
[2024-05-09] MEDS: Enoxaparin Sodium 40 MG/0.4 ML SYRINGE SUBCUT (16:15)
[2024-05-09] MEDS: Insulin Lispro 100 UNIT/ML 3 ML VIAL SUBCUT ×2 (16:16→21:32)
[2024-05-09 17:01] LABS: Vancomycin Random 8.2 mcg/mL (15-20)
[2024-05-09] MEDS: Atorvastatin Calcium 40 MG TABLET PO (21:32)
[2024-05-09 22:05] LABS: Glucose, Whole Blood 154 mg/dL (60-115)
[2024-05-10] VITALS (7 sets, daily range): BP systolic 125–156; BP diastolic 75–82; PULSE 78–92; RESP 16–18; TEMP 35.9–36.4; O2SAT 87–98; BMI 26.5
[2024-05-10 07:38] LABS: Glucose, Whole Blood 83 mg/dL (60-115)
[2024-05-10] MEDS: Albuterol/Iprat 2.5/0.5MG 3 ML AMPUL.NEB INHALE ×2 (08:24→12:09)
[2024-05-10 08:29] LABS: Estimated Glomerular Filt Rate > 60
[2024-05-10] MEDS: Metoprolol Succinate ER 100 MG TAB.ER.24H PO (09:23)
[2024-05-10] MEDS: Furosemide 20 MG TABLET PO (09:23)
[2024-05-10] MEDS: NIFEdipine ER 60 MG TAB.ER.24 PO (09:23)
[2024-05-10] MEDS: predniSONE 20 MG TABLET 40 MG PO (09:24)
--- NOTE | 2024-05-10 11:48 | PM.DS ---
DS: Providers Provider Date of Service: 05/10/24 Date of admission: 05/06/24 14:08 Date of discharge: 05/10/24 Primary care physician: Rell Kasper MD DS: Diagnosis Discharge Diagnosis (1) Congestive heart failure: Status: Acute DS: Summary Hospital Course Hospital Course: History and physical as per admitting provider Nataly is a 83 Y F w/ hyperlipidemia, diabetes mellitus, COPD presenting initially to emergency department on 05/06 w/ cough, dyspnea, found to be in mixed respiratory failure, necessitating BiPAP; work-up in emergency department included chest x-ray demonstrating bilateral opacities c/f pulmonary edema and/or infectious process 83-year-old woman treated for initially hypotension secondary to over diuresis in the ER. Transferred to ICU for pressor support and BiPAP. Chest x-ray had shown bilateral opacities with pulmonary edema. Patient was transferred to medical floor on 05/07 off pressors and BiPAP. acute hypoxic respiratory failure secondary to acute congestive heart failure and COPD exacerbation-patient received iv lasix ,Antibiotics , short prednisone taper: Patient seems to be improved significantly with the above management. In addition patient had echo done ef seems 70% . Patient probably has component of HFpEF(discussed with pulmonary Dr Norton -recomended to start lasix 20 mg daily upon discharge). In addition patient was evaluated by Respiratory for home oxygen evaluation-which patient qualified for that. in addition: ct abd incidental findings :1.7 cm left adrenal mass. In the absence of a known primary malignancy, this likely represents an adenoma. consider adrenal protocol CT is recommended. plan: started on oxygen-home oxygen evaluation done patient qualified. Follow up with your primary care provider for management . Continue Lasix 20 mg daily. prednisone taper as above. moniter bmp. CHF education given-if gains weight 2 lb or more in a week-will need outpatient Lasix dosing assessment with PCP. Consider Follow-up with cardiology outpatient. follow up with pcp. Patient will be going home with VNA PT and home oxygen. Above management discussed with the patient in detail length as well as her daughter at bedside-they both understand and in agreement with the plan, time spent 40 minute. Time Attestation Total time managing care of this patient today: 40 mintues. Discharge Coordination Time (in mins): 40 min Quality: Safe Use of Opioids Does Pt have an Active Cancer Diagnosis on the Problem List?: No Quality: Stroke Does the patient have a stroke diagnosis?: No Physical Exam Vital Signs: Vital Signs: Last Vital Signs Temp 96.6 F L 05/10/24 11:33 Pulse 78 05/10/24 11:33 Resp 16 05/10/24 11:33 BP 131/75 05/10/24 11:33 Pulse Ox 91 L 05/10/24 11:33 O2 Del Method Nasal Cannula, Hi gh Flow Nasal Thomas renee 05/10/24 11:33 O2 Flow Rate 1 05/10/24 11:33 FiO2 28 05/07/24 15:46 BMI result Body Mass Index 26.5 Appearing in no acute distress lung smild exp wheezing heart regular rate rhythm, clear S1, S2 positive bowel sounds, abdomen is soft, nontender neuro patient is alert x3, no focal deficits DS: Data Data Completed and Pending Labs on day of discharge: Laboratory Results - last 24 hr 05/09/24 05/09/24 05/09/24 14:57 15:56 21:26 Hold Purple Top Creatinine Estim Creat Clear Calc Estimated GFR POC Glucose 194 H 154 H Random Vancomycin 8.2 L 05/10/24 05/10/24 06:53 07:33 Hold Purple Top SEE NOTE Creatinine 0.73 Estim Creat Clear Calc 54.0 Estimated GFR > 60 POC Glucose 83 Random Vancomycin Preliminary micro results at discharge 05/06/24 11:22 Blood Culture - Preliminary Blood - Venous No growth after 48 hours. 05/06/24 11:12 Blood Culture - Preliminary Blood - Venous No growth after 48 hours. Imaging Chest x-ray: Radiologist's impression: ITS Impressions Abdomen/Pelvis CT 05/07/24 09:47 IMPRESSION: 1. Poor nephrograms bilaterally which can be seen in the setting of chronic medical renal disease. Clinical correlation is recommended. No hydronephrosis. 2. No evidence of bowel obstruction. 3. 1.7 cm left adrenal mass. In the absence of a known primary malignancy, this likely represents an adenoma. If there is a known primary malignancy, adrenal protocol CT is recommended. Electronically signed by: Cristhian Sánchez MD 05/07/2024 10:17 AM EDT Discharge Plan Discharge Anticipated Discharge Date/Time: 05/10/24 11:45 Patient Disposition: Home Health Service Discharge Diagnosis: Hypotension Congestive heart failure Acute hypoxic respiratory failure [facility] [employer] [Other] - 1 Week [facility] [Other] - 1 Day (PLEASE CONTACT [facility] AT [phone] OR PHONE NUMBER ON TICKET ATTACHED TO PORTABLE TANK SOON YOU GET HOME SO THEY WILL DELIVER YOUR OXYGEN CONCENTRATOR TODAY. ) Po,Rell Cuba MD [Primary Care Provider] - 1 Week Discharge Medications: New prednisone 10 mg tablet See Taper PO DIRECTED Qty: 30 0RF Taper: Prednisone 40 mg daily for 3 Days and 0 Hour 30 mg daily for 3 Days and 0 Hour 20 mg daily for 3 Days and 0 Hour 10 mg daily for 3 Days and 0 Hour Rx Instructions: see taper instructions furosemide 20 mg Tablet 20 mg PO DAILY Qty: 90 0RF Protocol: Hold for SBP< HOLD for SBP < : 90 Continued fluticasone propion-salmeterol [Advair Diskus] 250-50 mcg/dose blister with device 1 inh inhalation BID Qty: 60 11RF albuterol sulfate 90 mcg/actuation HFA aerosol inhaler 2 puff inhalation Q6H PRN (Reason: bronchospasm) Qty: 8.5 3RF metformin 500 mg tablet 500 mg PO BID Qty: 180 3RF nifedipine 60 mg tablet extended release 60 mg PO DAILY 30 Days Qty: 90 3RF (DME) jason.stocking,knee,reg,xlrg Misc See Rx Instructions .Route Qty: 12 0RF Rx Instructions: As directed 20-30 mm HG atorvastatin 40 mg tablet 40 mg PO BEDTIME Qty: 90 4RF metoprolol succinate 100 mg tablet extended release 24 hr 100 mg PO DAILY Qty: 90 2RF Discharge Orders: Discharge Order (Routine); Ordered 05/10/24 Ordered By: Yovani Morrison Diet: Advance to usual diet Activity on Discharge: As tolerated Stand Alone Forms: Patient Portal Discharge page Print Language: Japanese Other Ambulatory Orders: Basic Metabolic Panel (Routine) Timeframe: 1 Week Facility: [facility] - Location: Laboratory Ordered By: Yovani Morrison Care Plan Goals: You are started on oxygen-home oxygen evaluation done patient qualified. Follow up with your primary care provider for management . Continue Lasix 20 mg daily. prednisone taper as above. moniter bmp. CHF education given-if gains weight 2 lb or more in a week-will need outpatient Lasix dosing assessment with PCP. Consider Follow-up with cardiology outpatient. follow up with pcp. Health Concerns: Hypotension Congestive heart failure Acute hypoxic respiratory failure Plan of Treatment: Follow up with primary care provider as needed Take all medications as Assessment: See discharge summary Patient Instructions: Heart Failure (DC)
[2024-05-10 11:56] LABS: Glucose, Whole Blood 139 mg/dL (60-115)
[2024-05-10] MEDS: Insulin Lispro 100 UNIT/ML 3 ML VIAL SUBCUT (12:22)
--- NOTE | 2024-05-10 13:15 | W.MHC.F2F ---
Service Date Service Date: 05/10/24 Encounter Date of encounter: 05/10/24 Encounter: CHF, COPD Reasons for Services Signs and symptoms assessed: Worsening shortness of breath or chest pain or any new symptoms Reason for [facility]: CV/CP assess and/or care, medication management, medication treatment and teach disease management Reason for physical therapy: home safety and mobility, therapeutic exercises, restore joint function, gait/transfer training, assess need for DME, ADL training, energy conservation and other MD Overseeing Care: Rell Kasper Homebound: Leaving the home is medically contraindicated at this time without the asist of a device and/or another person due th the listed conditions above and below. Reason homebound: weakness related to hospital stay Homebound supporting statement: Patient is generalised weak post hospitlisation and need help with going to appointments and labs draws as well as PT. Certification: Based on the above findings, I certify that this patient is confined to the home and needs intermittent [facility] care, physical therapy and/or speech therapy, or continues to need occupational therapy. The patient is under my care, and I have initiated the establishment of the plan of care. The patient will be followed by a physician who will periodically review the plan of care. Time Spent With Patient Time: Total time managing care of this patient today ____ minutes.
--- NOTE | 2024-05-10 13:49 | MHC.CM.PN ---
IMM 05/10/24, PT MEDICALLY CLEARED FOR DC HOME W/NEW [facility] AND NEW [employer] FOR HOME O2, CM CONTACTED PT'S DTR ERIC AT NUMBER ON FILE TO ARRANGE DC, PT'S BROTHER MONSE AT BEDSIDE AND WILL GO HOME TO COLLECT PT'S CLOTHES AND COME BACK TO TRANSPORT PT W/ADDITIONAL FAMILY MEMBER.
--- NOTE | 2024-05-10 13:51 | PC.RT ---
Home o2 evel done by RT 05/08. Pt going home rather than rehab. Eval complete and faxed today, fax confirmation obtained. An [employer] full o2 tank with new n/c and [employer] information card was brought to pt room. Pt son was educated on operation and return demonstrated to this RT. Pt family instructed to call [employer] upon arriving home. Oxygen Safety sheet given.
== END 2024-05-10 15:12 | disposition home health service (06) | DRG 190 ==
LOC: HO.ED 12:21 → HO.EDOVER 14:14 → HO.ICU 14:51 → HO.IMC 05-07 15:39
PROVIDERS: Internal Medicine Pulmonary Disease; Nurse Practitioner Acute Care; Nurse Practitioner Family; Admitting Provider Internal Medicine Critical Care Medicine; Emergency Provider Emergency Medicine; PCP Internal Medicine; Visit Provider Internal Medicine
DX: J44.1 Chronic obstructive pulmonary disease with (acute) exacerbation (principal); G92.8 Other toxic encephalopathy; I50.31 Acute diastolic (congestive) heart failure; J96.01 Acute respiratory failure with hypoxia; J96.02 Acute respiratory failure with hypercapnia; E78.5 Hyperlipidemia, unspecified; D35.02 Benign neoplasm of left adrenal gland; I95.9 Hypotension, unspecified; Z20.822 Contact with and (suspected) exposure to COVID-19; Z87.891 Personal history of nicotine dependence; Z79.51 Long term (current) use of inhaled steroids; Z79.84 Long term (current) use of oral hypoglycemic drugs; Z79.899 Other long term (current) drug therapy
CPT/HCPCS: 0241U; 36415; 36600; 71045; 74177; 80048; 80053; 80202; 81001; 81003; 82040; 82565; 82803; 82947; 83605; 83735; 83880; 84100; 84484; 85025; 87040; 87086; 93005; 93306; 94640; 94660; 97162; 99285; J0456; J0696; J1650; J1940; J2270; J2405; J2543; J2919; J3370; J3475; P9047; Q9957; Q9967

== ENCOUNTER → 2024-05-06 09:41 | Outpatient (BNV) | payer MEDICARE, SELFPAY | PROVIDERS: Emergency Provider Emergency Medicine; PCP Internal Medicine; Visit Provider Radiology Vascular & Interventional Radiology | DX: R06.02 Shortness of breath (principal) | CPT/HCPCS: 71045 ==

== ENCOUNTER → 2024-05-06 09:41 | Outpatient (BNV) | payer MEDICARE, SELFPAY | PROVIDERS: Emergency Provider Emergency Medicine; PCP Internal Medicine; Visit Provider Internal Medicine | DX: R00.0 Tachycardia, unspecified (principal) | CPT/HCPCS: 93010 ==

== ENCOUNTER 2024-05-06 14:08 | Outpatient (BNV) | payer MEDICARE, SELFPAY | END 2024-05-07 09:47 | PROVIDERS: Admitting Provider Internal Medicine Critical Care Medicine; Emergency Provider Emergency Medicine; PCP Internal Medicine; Visit Provider Radiology Diagnostic Radiology | DX: J96.01 Acute respiratory failure with hypoxia (principal) | CPT/HCPCS: 74177 ==

== ENCOUNTER 2024-05-06 14:08 | Outpatient (BNV) | payer MEDICARE, SELFPAY | END 2024-05-08 07:00 | PROVIDERS: Admitting Provider Internal Medicine Critical Care Medicine; Emergency Provider Emergency Medicine; PCP Internal Medicine; Visit Provider Internal Medicine Cardiovascular Disease | DX: I35.8 Other nonrheumatic aortic valve disorders (principal); R06.02 Shortness of breath | CPT/HCPCS: 93306 ==

== ENCOUNTER → 2024-05-06 14:08 | Outpatient (BNV) | payer MEDICARE, SELFPAY | PROVIDERS: Admitting Provider Internal Medicine Critical Care Medicine; Emergency Provider Emergency Medicine; PCP Internal Medicine; Visit Provider Nurse Practitioner Acute Care | DX: J44.1 Chronic obstructive pulmonary disease with (acute) exacerbation (principal); I50.9 Heart failure, unspecified | CPT/HCPCS: 99231; 99232; 99239; 99499; G0180 ==

== ENCOUNTER → 2024-05-06 14:08 | Outpatient (BNV) | payer MEDICARE, SELFPAY | PROVIDERS: Admitting Provider Internal Medicine Critical Care Medicine; Emergency Provider Emergency Medicine; PCP Internal Medicine; Visit Provider Internal Medicine Pulmonary Disease | DX: J96.02 Acute respiratory failure with hypercapnia (principal); J96.01 Acute respiratory failure with hypoxia; I50.9 Heart failure, unspecified; I73.9 Peripheral vascular disease, unspecified; I10 Essential (primary) hypertension; E11.65 Type 2 diabetes mellitus with hyperglycemia; J43.9 Emphysema, unspecified | CPT/HCPCS: 99291 ==

== ENCOUNTER → 2024-05-06 14:08 | Outpatient (BNV) | payer MEDICARE, SELFPAY | PROVIDERS: Admitting Provider Internal Medicine Critical Care Medicine; Emergency Provider Emergency Medicine; PCP Internal Medicine; Visit Provider Internal Medicine Critical Care Medicine | DX: J44.1 Chronic obstructive pulmonary disease with (acute) exacerbation (principal); J96.01 Acute respiratory failure with hypoxia; J96.02 Acute respiratory failure with hypercapnia | CPT/HCPCS: 99223; 99499 ==

== ENCOUNTER 2024-05-18 10:12 | Outpatient (AMB) | payer MEDICARE, SELFPAY ==
--- NOTE | 2024-05-18 10:35 | A.OFFPC_ITS ---
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 Accompanied by: Self / Same As Patient Allergies lisinopril Allergy (Unknown, Verified 05/18/24 10:36) creatinine increase Tobacco use date assessed: 05/18/24 Fall risk assessment: No Falls in past year Last assessed Fall Risk: 05/18/24 Dental Screening Dental Screen Date: 05/18/24 Did you have a dental visit in the last 12 months?: No Did you have a dental problem in the last 6 months where you did not have access to dental care?: No Was dental information given to patient?: No HPI TCM TCM Information Date of Discharge 05/10/24 Discharged From [facility] Interactive Contact Date (Reference documentation from this date) 05/11/24 HPI Comments History of Present Illness Details 83 y/o Female patient who presents to [facility] for TCM. PMhx significant for hyperlipidemia, diabetes mellitus, and COPD. She was admitted at [facility] on 05/06 - 05/10 for acute hypoxic respiratory failure secondary to acute congestive heart failure and COPD exacerbation. She was transferred to ICU for pressor support and BiPAP.Chest X-ray showed bilateral opacities with pulmonary edema. In addition patient had echo done with EF @ 70% with component of HFpEF. CT Abd incidental findings :1.7 cm left adrenal mass. In the absence of a known primary malignancy, this likely represents an adenoma. consider adrenal protocol CT is recommended. [facility] Medical History (Updated 05/18/24 @ 11:02 by Tiki Coburn NP) COPD (chronic obstructive pulmonary disease) Congestive heart failure Peripheral vascular disease Obesity (BMI 30.0-34.9) Hypertension Obesity (BMI 30-39.9) Overweight (BMI 25.0-29.9) Hypercholesterolemia Type 2 diabetes mellitus with hyperglycemia Surgical History No pertinent past surgical history Family History Family/Other Medical history unknown Social History Household Members: Family and Children Housing: House Do you presently have visiting nurse or other home services: No Alcohol intake: never Patient Tobacco Use Status: Former Tobacco user Tobacco use type: Cigarette e-Cigarette/Vaping Use: Never Used Second Hand Smoke Exposure: Yes service: No Current occupational status: retired Cognitive needs: No Hearing needs: No Vision needs: Yes Questionnaire PHQ-9 Over the last 2 weeks, how often have you been bothered by any of the following problems? 1. Little interest or pleasure in doing things: not at all 2. Feeling down, depressed, or hopeless: not at all 3. Trouble falling or staying asleep, or sleeping too much: not at all 4. Feeling tired or having little energy: not at all 5. Poor appetite or overeating: not at all 6. Feeling bad about yourself - or that you are a failure or have let yourself or your family down: not at all 7. Trouble concentrating on things, such as reading the newspaper or watching television: not at all 8. Moving or speaking so slowly that other people could have noticed. Or the opposite - being so fidgety or restless that you have been moving around a lot more than usual: not at all 9. Thoughts that you would be better off or of hurting yourself in some way: not at all Total score: 0 Source: Developed by Drs. Cristhian Hills, Keysha Dave, Nick Faria and colleagues, with an educational tracey from [employer]. Thrive Questionnaire Date Thrive assessed: 05/18/24 I am a: Patient What is your living situation today?: I have a steady place to live Within the past 12 months, did the food you bought not last and you didn't have the money to get more?: Never true Within the past 12 months, did you worry whether your food would run out before you got money to buy more?: Never true Do you have trouble paying for medicines?: No Do you have trouble getting transportation to medical appointments?: No Do you have trouble paying your heating and electricity bill?: No Do you have trouble taking care of your child, family member or friend?: No Do you have trouble with day-to-day activities such as bathing, preparing meals, shopping, managing finances, etc.?: No Are you currently unemployed and looking for a job?: No Are you interested in more education?: No Please select the resources that you would like help with: None Currently or been in a relationship where the following occur: No concerns reported THRIVE Score: 0 AUDIT C Alcohol Use Questionnaire (AUDIT-C) 1. How often do you have a drink containing alcohol?: Monthly or less 2. How many drinks containing alcohol do you have on a typical day when you are drinking?: 1 or 2 3. How often do you have six or more drinks on one occasion?: Never Total Score: 1 AIMEE-7 AMB Questionnaire AIMEE-7 Date AIMEE - 7 assessed: 05/18/24 Feeling nervous, anxious, or on edge: 0 = Not at all Not being able to stop or control worryin = Not at all Worrying too much about different things: 0 = Not at all Trouble relaxin = Not at all Being so restless that it is hard to sit still: 0 = Not at all Becoming easily annoyed or irritable: 0 = Not at all Feeling afraid as if something awful might happen: 0 = Not at all Total AIMEE-7 score (0-4 normal; 5-9 mild; 10-14 moderate; 15-21 severe): 0 Source: Developed by Drs. Cristhian Hills, Keysha Dave, Nick Faria and colleagues, with an educational tracey from [employer]. Physical exam (Primary Care) Vital Signs: Last Vital Signs Pulse 83 05/18/24 10:36 BP 126/84 05/18/24 10:36 Pulse Ox 95 05/18/24 10:36 Oxygen Delivery Method Nasal Cannula 05/18/24 10:36 Oxygen Flow Rate 1 05/18/24 10:36 BMI result Body Mass Index 29.6 Tobacco/Smoking Status: Tobacco use Status Tobacco use date assessed 05/18/24 05/18/24 10:43 Patient Tobacco Use Status Former Tobacco user 05/18/24 10:36 Tobacco use type Cigarette 05/18/24 10:36 e-Cigarette/Vaping Use Never Used 05/18/24 10:36 PHQ-9: PHQ-9 Score PHQ-9: Total score 0 05/18/24 10:46 Thrive Assessment: Date of Thrive Assessment Date Thrive assessed 05/18/24 05/18/24 10:43 Currently or been in a relationship where the following occur: No concerns reported Coding Level of Care Code TCM Mod MDM <= 14 Days Diagnoses Acute congestive heart failure, unspecified heart failure type I50.9 Heart failure type: unspecified Heart failure chronicity: acute Pulmonary emphysema, unspecified emphysema type J43.9 COPD type: emphysema Emphysema type: unspecified Time Spent (min) 20 Assessment & Plan Assessment & Plan (1) Congestive heart failure: Code(s): I50.9 - Heart failure, unspecified Category: Medical Qualifiers: Heart failure type: unspecified Heart failure chronicity: acute Qualified Code(s): I50.9 - Heart failure, unspecified Plan: Referred to Cardiology. (2) COPD (chronic obstructive pulmonary disease): Code(s): J44.9 - Chronic obstructive pulmonary disease, unspecified Category: Medical Qualifiers: COPD type: emphysema Emphysema type: unspecified Qualified Code(s): J43.9 - Emphysema, unspecified Plan: Currently on 1L Oxygen NC Referred to Pulmonology. Plan The incidental finding on CT Abdomen of 1.7 cm left adrenal mass. In the absence of a known primary malignancy, this likely represents an adenoma. consider adrenal protocol CT is recommended. WILL DEFER TO PCP TO ORDER ADDITIONAL IMAGING IF WARRANTED. Orders: Referrals Pulmonology Referral J43.9 - Emphysema, unspecified Cardiology Referral I50.9 - Heart failure, unspecified
[2024-05-18 10:36] VITALS: BP 126/84; PULSE 83; O2SAT 95; BMI 29.6
== END 2024-05-18 11:49 | disposition home or self-care (01) ==
LOC: HO.HMCH 10:12
PROVIDERS: PCP Internal Medicine; Visit Provider Nurse Practitioner Family
DX: I50.9 Heart failure, unspecified (principal); J43.9 Emphysema, unspecified

== ENCOUNTER → 2024-05-18 10:12 | Outpatient (BNVA) | payer MEDICARE, SELFPAY | PROVIDERS: PCP Internal Medicine; Visit Provider Nurse Practitioner Family | DX: I50.9 Heart failure, unspecified (principal); J43.9 Emphysema, unspecified | CPT/HCPCS: 99495 ==

== ENCOUNTER 2024-06-05 13:58 | Outpatient (REF) | payer MEDICARE, SELFPAY ==
[2024-06-05 15:31] LABS: Anion Gap 15 (12-20); Blood Urea Nitrogen 22 mg/dL (9-16); Calcium 10.5 mg/dL (8.4-10.2); Carbon Dioxide 30 mmol/L (22-29); Chloride 100 mmol/L (96-108); Estimated Glomerular Filt Rate 53; Glucose Random 94 mg/dL (60-115); Potassium 4.6 mmol/L (3.3-5.1); Sodium 140 mmol/L (135-145)
[2024-06-05 15:39] LABS: B Type Natriuretic Peptide 41 pg/mL (<100)
== END 2024-06-05 13:59 | disposition home or self-care (01) ==
LOC: HO.LAB 13:58
PROVIDERS: PCP Internal Medicine; Visit Provider Internal Medicine Cardiovascular Disease
DX: I50.9 Heart failure, unspecified (principal)
CPT/HCPCS: 36415; 80048; 83880; 99202

== ENCOUNTER 2024-06-05 13:58 | Outpatient (AMB) | payer MEDICARE, SELFPAY ==
[2024-06-05 14:00] VITALS: BP 120/78; PULSE 83; BMI 28.5
--- NOTE | 2024-06-05 14:00 | A.OFFVIS_ITS ---
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 Intake Note: New dx heart failure had ekg and echo leg swelling has been going down Event Set Up Specialist Required: No Allergies lisinopril Allergy (Unknown, Verified 05/18/24 10:36) creatinine increase Medication List - Last Reconciled 06/05/24 by Rolan Troy MD albuterol sulfate 90 mcg/actuation 2 puffs inhalation Q6H PRN atorvastatin 40 mg PO BEDTIME [email or web address] As directed 20-30 mm HG fluticasone propion-salmeterol 250-50 mcg/dose (Advair Diskus) 1 inh inhalation BID furosemide 20 mg See Protocol PO DAILY metformin 500 mg PO BID metoprolol succinate ER 100 mg PO DAILY nifedipine ER 60 mg PO DAILY 30 days HPI Comments Details: Thank you for referring Gretchen in cardiology consultation after recent hospitalization for acute respiratory failure with a combination of COPD exacerbation congestive heart failure. Admission BNP at that time was 290. She was diuresed and treated for COPD exacerbation was then sent home on chronic oxygen therapy which she says she uses 1 L by nasal cannula on a regular basis. She has never seen a employee communications specialist in the past. She says she has stopped smoking about 15 years ago, was heavy smoker and has COPD but never had hospitalization. She also does not have history of congestive heart failure in the past. Echocardiogram abnormality type time showed hyperdynamic LV EF of greater than 70% without any major valvular abnormality or right heart significant structural abnormality. Patient comes here as on low-dose Lasix the [facility]. She intermittently gets leg swelling but mostly at the end of day which then gets better by the time she wakes up in the morning. She walks regularly maintains activity at home. She has longstanding history of hypertension which is now well controlled. She also has diabetes which is managed. She has no history of known vascular disease or coronary artery disease from before. She denies any symptoms of orthopnea, PND. No prolonged palpitation irregular heartbeat. No obvious exertional chest pain reported by her. [facility] Medical History COPD (chronic obstructive pulmonary disease) Congestive heart failure Peripheral vascular disease Obesity (BMI 30.0-34.9) Hypertension Obesity (BMI 30-39.9) Overweight (BMI 25.0-29.9) Hypercholesterolemia Type 2 diabetes mellitus with hyperglycemia Surgical History No pertinent past surgical history Family History Family/Other Medical history unknown Social History Household Members: Family and Children Housing: House Do you presently have visiting nurse or other home services: No Alcohol intake: never Patient Tobacco Use Status: Former Tobacco user Tobacco use type: Cigarette e-Cigarette/Vaping Use: Never Used Second Hand Smoke Exposure: Yes service: No Current occupational status: retired Cognitive needs: No Hearing needs: No Vision needs: Yes Review of Systems Const Denies chills, Denies daytime sleepiness, Denies fatigue, Denies fever(s), Denies frequent falls, Denies poor appetite, Denies snoring, Denies stops breathing during sleep, Denies weakness, Denies weight gain and Denies weight loss Eyes Denies loss of vision ENT Denies dizziness and Denies hearing loss Card Denies chest pain, Denies claudication, Denies leg edema, Denies lightheadedness, Denies palpitations, Denies dyspnea, Denies dyspnea on exertion and Denies orthopnea Resp Denies cough, Denies excessive phlegm production, Denies dyspnea, Denies dyspnea on exertion, Denies snoring and Denies wheezing GI Denies abdominal pain, Denies hematochezia, Denies change in bowel habits, Denies nausea and Denies vomiting Denies urinary frequency and Denies dysuria Musc Denies arthralgias, Denies muscle weakness, Denies numbness and Denies other (frequent falls) Skin/Breast Denies nail changes and Denies rash Neuro Denies Abnormal speech present, Denies dizziness, Denies frequent falls, Denies loss of vision, Denies memory loss, Denies numbness and Denies weakness Psych Denies depression and Denies memory loss Endo Denies fatigue and Denies palpitations Deangelo/Lymph Reports easy bruising and Reports other (anemia) Aller/Immun Denies wheezing Physical Exam Vital Signs: Last Vital Signs Pulse 83 04/15/25 14:00 BP 120/78 06/05/24 14:00 BMI result Body Mass Index 28.5 Const General: cooperative, comfortable, no acute distress, alert and awake Nutritional Appearance: overweight Orientation/consciousness: patient oriented x3 Limitations: no limitations HEENT Head: Yes normocephalic and Yes atraumatic Neck Neck: Yes trachea midline, Yes supple and Yes no JVD Resp Effort & Inspection: normal respiratory effort Auscultation: no wheezes and diminished lung sounds Cardio Jugular venous distension: no JVD Rate: regular rate Rhythm: regular rhythm Heart sounds: S1 normal heart sound present, S2 normal heart sound present, no click, no gallops, no murmurs and no rubs GI Auscultation: normal bowel sounds Skin General skin exam: no rashes or lesions noted Neuro General: patient oriented x3 and no focal motor deficits Speech: No Abnormal speech present Extrem General: No clubbing, No cyanosis and Yes edema Assessment & Plan Assessment & Plan (1) Congestive heart failure: Code(s): I50.9 - Heart failure, unspecified Category: Medical Qualifiers: Heart failure type: unspecified Heart failure chronicity: acute Qualified Code(s): I50.9 - Heart failure, unspecified Plan: Patient admitted last month with acute hypoxemic respiratory failure, 1st admission. She was then started on low-dose Lasix therapy. Her admission BNP was 290. Most likely related to RV strain from significant COPD exacerbation. She is now currently maintained on low oxygen therapy for chronic respiratory failure. She was clinical findings consistent with significant COPD/emphysema. Have taken the liberty to refer her to Pulmonary for further management of her COPD. Meanwhile we discussed about management of heart failure. Continue current low-dose diuretic therapy. Clinically she appears to be euvolemic and well compensated today. Will obtain BMP and BNP today. Also given her risk factors would suggest a vasodilating myocardial perfusion imaging to rule out ischemia as a cause of her heart failure. These tests will be scheduled in near future. Recommend to continue pursue oxygen therapy. Recommend daily weight monitoring avoidance salt loading and discussed instructions for additional diuretic therapy. Follow up in the clinic in 3 months time, sooner p.r.n.. Thank you for allowing me to partake in his care Orders: Orders CA lexiscan stress w kayleigh Today I50.9 - Heart failure, unspecified Basic Metabolic Panel Today I50.9 - Heart failure, unspecified B Type Natriuretic Peptide Today I50.9 - Heart failure, unspecified Referrals Pulmonology Referral J43.9 - Emphysema, unspecified Coding Level of Care Code New Pt Level 4 (28806) Complex EM visit Add On G2211 Diagnoses Acute congestive heart failure, unspecified heart failure type I50.9 Heart failure type: unspecified Heart failure chronicity: acute
== END 2024-06-05 14:41 | disposition home or self-care (01) ==
LOC: HO.HCS 13:59
PROVIDERS: PCP Internal Medicine; Visit Provider Internal Medicine Cardiovascular Disease
DX: I50.9 Heart failure, unspecified (principal)
CPT/HCPCS: 99204; G2211

== ENCOUNTER 2024-06-21 13:28 | Outpatient (AMB) | payer MEDICARE, SELFPAY ==
[2024-06-21 13:33] VITALS: BP 110/60; PULSE 82; O2SAT 92; BMI 29.7
--- NOTE | 2024-06-21 13:33 | A.OFFVIS_ITS ---
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 The patient is an 83 year woman with a known history of COPD who apparently was in his usual state health until back in April when she started developing acute respiratory failure. She was admitted to the [facility]. There she was initially evaluated in the ER and had imaging studies including a chest x-ray demonstrating a right lower lobe opacity. She also had a CT scan of the abdomen which was personally by me demonstrating the right lower lobe consolidation but also a 1.7 cm growth on the left adrenal gland suggesting of an adenoma although can not rule out metastatic disease. When further evaluating the right lower lobe area there seems to be around about areas so therefore an occult malignant process can not be ruled out. The patient is using oxygen now since then. She has a hard time with the oxygen tanks specially since she has issues with her walking. We did walker with a POC and the patient did well until we got back and then at that point she we had to increase her 3 L pulse to 4 L pulse. She was able to maintain a pulse ox in the 90% range. Therefore is reasonable to get her a portable oxygen concentrator for better portability outside of the home and therefore he can she will more more adherent to using it to help her specially with a cardiac condition. The patient will also switch over from [facility] to [facility]. The patient will undergo a CT scan of the chest and follow- up in 3-4 months. She has any issues prior to that she will call for an earlier assessment. Also to note will have [employer] do an overnight oximetry on 1 L of oxygen that she uses while sleeping. [facility] Medical History (Updated 06/21/24 @ 21:35 by Vahe Allen MD) Chronic hypoxemic respiratory failure Adrenal mass Pneumonia COPD (chronic obstructive pulmonary disease) Congestive heart failure Peripheral vascular disease Obesity (BMI 30.0-34.9) Hypertension Obesity (BMI 30-39.9) Overweight (BMI 25.0-29.9) Hypercholesterolemia Type 2 diabetes mellitus with hyperglycemia Surgical History No pertinent past surgical history Family History Family/Other Medical history unknown Social History Household Members: Family and Children Housing: House Do you presently have visiting nurse or other home services: No Alcohol intake: never Patient Tobacco Use Status: Former Tobacco user Tobacco use type: Cigarette e-Cigarette/Vaping Use: Never Used Second Hand Smoke Exposure: Yes service: No Current occupational status: retired Cognitive needs: No Hearing needs: No Vision needs: Yes Review of Systems Const Denies chills, Denies daytime sleepiness, Denies fatigue, Denies fever(s), Denies poor appetite, Denies snoring, Denies stops breathing during sleep, Denies weakness, Denies weight gain and Denies weight loss Eyes Denies loss of vision ENT Denies dizziness and Denies hearing loss Card Denies chest pain, Denies irregular heart rhythm, Denies claudication, Denies leg edema, Denies lightheadedness, Denies palpitations, Reports dyspnea on exertion and Denies orthopnea Resp Reports cough, Denies excessive phlegm production, Reports dyspnea on exertion, Denies snoring and Denies wheezing GI Denies abdominal pain, Denies hematochezia, Denies change in bowel habits, Denies nausea and Denies vomiting Denies urinary frequency and Denies dysuria Musc Reports abnormal gait, Reports myalgias, Reports arthralgias and Denies numbness Skin/Breast Denies rash Neuro Denies Abnormal speech present, Reports abnormal gait, Denies dizziness, Denies loss of vision, Denies memory loss, Denies numbness and Denies weakness Psych Denies depression and Denies memory loss Endo Denies fatigue and Denies palpitations Deangelo/Lymph Denies easy bruising Aller/Immun Denies wheezing Physical Exam Vital Signs: Last Vital Signs Pulse 82 06/21/24 13:33 BP 110/60 06/21/24 13:33 Pulse Ox 92 06/21/24 13:33 Oxygen Delivery Method Nasal Cannula 06/21/24 13:33 Oxygen Flow Rate 1 06/21/24 13:33 BMI result Body Mass Index 29.7 Const General: cooperative, comfortable, no acute distress, alert and awake Nutritional Appearance: overweight Orientation/consciousness: patient oriented x3 Limitations: no limitations HEENT Head: Yes normocephalic and Yes atraumatic Neck Neck: Yes trachea midline, Yes supple and Yes no JVD Resp Effort & Inspection: normal respiratory effort Auscultation: no wheezes and diminished lung sounds Cardio Jugular venous distension: no JVD Rate: regular rate Rhythm: regular rhythm Heart sounds: S1 normal heart sound present and S2 normal heart sound present GI Auscultation: normal bowel sounds Skin General skin exam: no rashes or lesions noted Neuro General: patient oriented x3 and no focal motor deficits Speech: No Abnormal speech present Extrem General: No clubbing, No cyanosis and Yes edema Office Procedures 6 Minute Walk Time:: 21:41 SPO2 % at rest: 92 Pulse at rest: 78 SPO2 % during excercise: 86 Pulse during excercise: 112 Distance in yards walked: 150 Mariya Score: 7 Supplemental Oxygen: desaturated to 86% quickly with activity. PLaced on POC 3L/pulse and then about the end of the ambulation increased to 4L/pulse to mainatain pox 91% [id number] - 6 Minute Walk Results Reviewed Results Reviewed: personally reviewed CTabdomen with RLL pneumonia ?RLL nodular density and L adrenal lesion Assessment & Plan Assessment & Plan (1) COPD (chronic obstructive pulmonary disease): Code(s): J44.9 - Chronic obstructive pulmonary disease, unspecified Category: Medical Qualifiers: COPD type: emphysema Emphysema type: unspecified Qualified Code(s): J43.9 - Emphysema, unspecified (2) Congestive heart failure: Code(s): I50.9 - Heart failure, unspecified Category: Medical Qualifiers: Heart failure type: unspecified Heart failure chronicity: acute Qualified Code(s): I50.9 - Heart failure, unspecified (3) Pneumonia: Code(s): J18.9 - Pneumonia, unspecified organism Category: Medical Qualifiers: Pneumonia type: due to unspecified organism Laterality: right Lung location: lower lobe of lung Qualified Code(s): J18.9 - Pneumonia, unspecified organism (4) Adrenal mass: Code(s): E27.8 - Other specified disorders of adrenal gland Category: Medical (5) Chronic hypoxemic respiratory failure: Code(s): J96.11 - Chronic respiratory failure with hypoxia Category: Medical Plan Oxygen revision: POC 4L/min with activity, 1l/min continues to sleep. POC for portability outside of the home Overnight oximetry on 1L/min nasal cannula stop Advair start Trelegy Repeat CT chest in 2-3 months F/U 3 months Orders: Orders Overnight Pulse Oximetry Today J43.9 - Emphysema, unspecified Medications: New [id number]-[id number] 100-62.5-25 mcg (Trelegy Ellipta) 1 inh inhalation DAILY 60 ea 11RF 30 days J44.9 - Chronic obstructive pulmonary disease, unspecified Discontinued fluticasone propion-salmeterol 250-50 mcg/dose (Advair Diskus) Discontinued Reason: Doctor's Order 1 inh inhalation BID 60 ea 11RF J43.9 - Emphysema, unspecified Coding Level of Care Code New Pt Level 5 (61955) Diagnoses Pulmonary emphysema, unspecified emphysema type J43.9 COPD type: emphysema Emphysema type: unspecified Acute congestive heart failure, unspecified heart failure type I50.9 Heart failure type: unspecified Heart failure chronicity: acute Pneumonia of right lower lobe due to infectious organism J18.9 Pneumonia type: due to unspecified organism Laterality: right Lung location: lower lobe of lung Adrenal mass E27.8 Chronic hypoxemic respiratory failure J96.11 CPT Codes Coding ([id number]) Time Spent (min) 60
[2024-06-21 21:39] VITALS: PULSE 78; O2SAT 92
== END 2024-06-21 14:03 | disposition home or self-care (01) ==
LOC: HO.HPS 13:28
PROVIDERS: PCP Internal Medicine; Referring Provider Nurse Practitioner Family; Visit Provider Hospitalist
DX: J43.9 Emphysema, unspecified (principal); I50.9 Heart failure, unspecified; J18.9 Pneumonia, unspecified organism; E27.8 Other specified disorders of adrenal gland; J96.11 Chronic respiratory failure with hypoxia
CPT/HCPCS: 94618; 99205

== ENCOUNTER → 2024-06-21 13:28 | Outpatient (BNVA) | payer MEDICARE, SELFPAY | PROVIDERS: PCP Internal Medicine; Referring Provider Nurse Practitioner Family; Visit Provider Hospitalist | DX: J43.9 Emphysema, unspecified (principal); J18.9 Pneumonia, unspecified organism; J96.11 Chronic respiratory failure with hypoxia; I50.9 Heart failure, unspecified; E27.8 Other specified disorders of adrenal gland | CPT/HCPCS: 94618; 99202 ==

== ENCOUNTER 2024-06-22 15:22 | Outpatient (AMB) | payer MEDICARE, SELFPAY ==
--- NOTE | 2024-06-22 15:43 | A.OFFPC_ITS ---
Vital Signs 06/22/24 15:44 Height 5 ft 3 in Weight 169 lb BMI 29.9 BP 130/82 Blood Pressure Location Lt brachial Position Sitting Pulse 62 Pulse Source Pulse Oximeter Temp 97.3 F Temp Source Temporal Artery Scan Pulse Oximetry (%) 93 Oxygen Delivery Method Room Air Intake Visit Reasons: Oxygen concern Intake Note: Patient is here to follow up on Oxygen concern. 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: Present Allergies lisinopril Allergy (Unknown, Verified 06/22/24 15:44) creatinine increase Tobacco use date assessed: 06/22/24 Fall risk assessment: No Falls in past year Last assessed Fall Risk: 06/22/24 Dental Screening Dental Screen Date: 05/18/24 [facility] Medical History (Updated 06/22/24 @ 16:08 by eRll Kasper MD) Type 2 diabetes mellitus with hyperglycemia Hypertension Chronic hypoxemic respiratory failure Adrenal mass Pneumonia COPD (chronic obstructive pulmonary disease) Congestive heart failure Peripheral vascular disease Obesity (BMI 30.0-34.9) Obesity (BMI 30-39.9) Overweight (BMI 25.0-29.9) Hypercholesterolemia Surgical History No pertinent past surgical history Family History Family/Other Medical history unknown Social History Household Members: Family and Children Housing: House Do you presently have visiting nurse or other home services: No Alcohol intake: never Patient Tobacco Use Status: Former Tobacco user Tobacco use type: Cigarette e-Cigarette/Vaping Use: Never Used Second Hand Smoke Exposure: Yes service: No Current occupational status: retired Cognitive needs: No Hearing needs: No Vision needs: Yes Questionnaire PHQ-9 Over the last 2 weeks, how often have you been bothered by any of the following problems? 1. Little interest or pleasure in doing things: not at all 2. Feeling down, depressed, or hopeless: not at all 3. Trouble falling or staying asleep, or sleeping too much: not at all 4. Feeling tired or having little energy: not at all 5. Poor appetite or overeating: not at all 6. Feeling bad about yourself - or that you are a failure or have let yourself or your family down: not at all 7. Trouble concentrating on things, such as reading the newspaper or watching television: not at all 8. Moving or speaking so slowly that other people could have noticed. Or the opposite - being so fidgety or restless that you have been moving around a lot more than usual: not at all 9. Thoughts that you would be better off or of hurting yourself in some way: not at all Total score: 0 Depression Screening Interpretation: Negative Depression Screening Done: Yes Source: Developed by Drs. Cristhian Hills, Keysha Dave, Nick Faria and colleagues, with an educational tracey from [employer]. Thrive Questionnaire Date Thrive assessed: 05/18/24 I am a: Patient What is your living situation today?: I have a steady place to live Within the past 12 months, did the food you bought not last and you didn't have the money to get more?: Never true Within the past 12 months, did you worry whether your food would run out before you got money to buy more?: Never true Do you have trouble paying for medicines?: No Do you have trouble getting transportation to medical appointments?: No Do you have trouble paying your heating and electricity bill?: No Do you have trouble taking care of your child, family member or friend?: No Do you have trouble with day-to-day activities such as bathing, preparing meals, shopping, managing finances, etc.?: No Are you currently unemployed and looking for a job?: No Are you interested in more education?: No Please select the resources that you would like help with: None Currently or been in a relationship where the following occur: No concerns reported THRIVE Score: 0 AUDIT C Alcohol Use Questionnaire (AUDIT-C) 1. How often do you have a drink containing alcohol?: Never Total Score: 0 AIMEE-7 AMB Questionnaire AIMEE-7 Date AIMEE - 7 assessed: 05/18/24 Feeling nervous, anxious, or on edge: 0 = Not at all Not being able to stop or control worryin = Not at all Worrying too much about different things: 0 = Not at all Trouble relaxin = Not at all Being so restless that it is hard to sit still: 0 = Not at all Becoming easily annoyed or irritable: 0 = Not at all Feeling afraid as if something awful might happen: 0 = Not at all Total AIMEE-7 score (0-4 normal; 5-9 mild; 10-14 moderate; 15-21 severe): 0 Source: Developed by Drs. Cristhian Hills, Keysha Dave, Nick Faria and colleagues, with an educational tracey from [employer]. Physical exam (Primary Care) Vital Signs: Last Vital Signs Temp 97.3 F 06/22/24 15:44 Pulse 62 06/22/24 15:44 BP 130/82 06/22/24 15:44 Pulse Ox 93 06/22/24 15:44 Oxygen Delivery Method Room Air 06/22/24 15:44 BMI result Body Mass Index 29.9 Tobacco/Smoking Status: Tobacco use Status Tobacco use date assessed 06/22/24 06/22/24 15:50 Patient Tobacco Use Status Former Tobacco user 06/22/24 15:50 Tobacco use type Cigarette 06/22/24 15:50 e-Cigarette/Vaping Use Never Used 06/22/24 15:50 PHQ-9: PHQ-9 Score PHQ-9: Total score 0 06/22/24 16:02 Depression Screening Interpretation: Negative Thrive Assessment: Date of Thrive Assessment Date Thrive assessed 05/18/24 06/22/24 15:50 Currently or been in a relationship where the following occur: No concerns reported Const General: alert; No acute distress Eyes Conjunctivae: conjunctivae normal Chest Other: Decreased breath sounds, basal crackles bilateral Resp Auscultation: clear to auscultation bilaterally Cardio Rate: regular rate Rhythm: regular rhythm GI Inspection: Yes normal to inspection Extrem General: Yes normal to inspection and No edema Coding Level of Care Code Est Pt Level 4 (82485) Complex EM visit Add On G2211 Diagnoses Chronic hypoxemic respiratory failure J96.11 Pulmonary emphysema, unspecified emphysema type J43.9 COPD type: emphysema Emphysema type: unspecified Adrenal mass E27.8 Hypercholesterolemia E78.00 Acute congestive heart failure, unspecified heart failure type I50.9 Heart failure chronicity: acute Heart failure type: unspecified Essential hypertension I10 Hypertension type: essential hypertension Type 2 diabetes mellitus with hyperglycemia, without long-term current use of insulin E11.65 Diabetes mellitus long term care administrator insulin use: without long term care administrator use Anemia D64.9 Assessment & Plan Assessment & Plan (1) Chronic hypoxemic respiratory failure: Code(s): J96.11 - Chronic respiratory failure with hypoxia Category: Medical Plan: Patient has seen Pulmonary started on oxygen COPD medication changes (2) COPD (chronic obstructive pulmonary disease): Code(s): J44.9 - Chronic obstructive pulmonary disease, unspecified Category: Medical Qualifiers: COPD type: emphysema Emphysema type: unspecified Qualified Code(s): J43.9 - Emphysema, unspecified Plan: Trelegy started and albuterol as needed (3) Adrenal mass: Code(s): E27.8 - Other specified disorders of adrenal gland Category: Medical Plan: Will work it up (4) Hypercholesterolemia: Code(s): E78.00 - Pure hypercholesterolemia, unspecified Category: Medical Plan: Avoid fried foods, chicken skin, eggs, butter margarine, pastries and meat. Be it pork or beef they have a lot of cholesterol on atorvastatin 40 mg once a day (5) Congestive heart failure: Code(s): I50.9 - Heart failure, unspecified Category: Medical Qualifiers: Heart failure chronicity: acute Heart failure type: unspecified Qualified Code(s): I50.9 - Heart failure, unspecified Plan: Weigh daily placed on furosemide (6) Hypertension: Code(s): I10 - Essential (primary) hypertension Category: Medical Qualifiers: Hypertension type: essential hypertension Qualified Code(s): I10 - Essential (primary) hypertension Plan: Continue with blood pressure medication. Decrease salt intake and exercise on metoprolol 100 mg once a day nifedipine 60 mg once a day (7) Type 2 diabetes mellitus with hyperglycemia: Comment: Dr. Green Code(s): E11.65 - Type 2 diabetes mellitus with hyperglycemia Category: Medical Qualifiers: Diabetes mellitus prison insulin use: without prison use Qualified Code(s): E11.65 - Type 2 diabetes mellitus with hyperglycemia Plan: Decrease the amount of carbohydrate intake, pasta, bread, rice and potatoes are all sugar and that is aside from all the sweet stuff, remember that fruits are good but they are Sweet also. Hemoglobin A1c goal of less than 7.0 on metformin (8) Anemia: Code(s): D64.9 - Anemia, unspecified Category: Medical Plan History of Present Illness The patient is an 83-year-old female presenting with ongoing management of chronic conditions, including COPD, congestive heart failure, diabetes mellitus, and hypercholesterolemia. Following an acute episode of respiratory failure, she was hospitalized in April 2024, where imaging revealed right lower lobe consolidation and a 1.7 cm left adrenal gland mass. The pulmonology team has initiated a transition from Advair to Trelegy for her COPD, and she is now on oxygen therapy, prescribed at varied flow rates for activity and sleep. She also has noted pulmonary edema/infectious process indicated by bilateral opacities on recent chest imaging. Her diabetes and heart conditions are managed with daily metformin, atorvastatin, and furosemide, addressing her hypercholesterolemia and congestive heart failure. Recent labs show anemia, necessitating further evaluation and close monitoring. Health Maintenance - Discussed limitation of sodium intake to reduce fluid retention and associated symptoms. - Evaluation and continued management of hypercholesterolemia using atorvastatin. - Monitoring of hemoglobin A1c levels for diabetes mellitus, with a goal of < 7.0. - Emphasized the importance of medication adherence for chronic conditions. Social History - No explicit details on social determinants of health discussed, so this section is empty. Review of Systems - Respiratory: Reports cough, shortness of breath - Cardiovascular: Denies chest pain or palpitations - Endocrine: Denies recent weight changes Physical Exam Results - Labs: Anemia noted with hemoglobin at 9 - Imaging: Chest X-ray showing right lower lobe consolidation; bilateral opacities indicating pulmonary edema/infectious process - CT: 1.7 cm left adrenal gland mass detected Plan 1. 0. For the incidental adrenal mass, follow-up imaging in 2-3 months is planned, tailored by a 24-hour urine collection to appraise adrenal function. Anemia will require further evaluation through additional laboratory work. Continued coordination with pulmonology and cardiology is planned to comprehensively manage her multifaceted care needs.: Patient was informed and verbally consented to the use of an ambient scribe for clinic note documentation during this visit. Discussion Notes During the visit, I discussed the current management of the patient's chronic obstructive pulmonary disease (COPD) and explained the benefits of transitioning her medication from Advair to Trelegy, emphasizing once-daily dosing. I expl ained the rationale behind oxygen therapy utilization with specific flow rates for different activities and encouraged continued adherence to prescribed levels. Dietary recommendations to limit sodium were recapitulated to mitigate fluid retention impacting her heart condition. The necessity of routine follow- up and imaging in 2-3 months to monitor the identified adrenal gland mass and pulmonary condition was addressed, clarifying the purpose of the tests and potential implications. We reviewed her diabetes management with metformin, highlighting glucose level targets. Potential complications related to anemia were also discussed, and the importance of prescribed medications and diet control was reiterated. We agreed on a detailed monitoring strategy, engaging her in management plans to ensure comprehensive care compliance. Patient Instructions - Continue using your inhaler as prescribed, once daily. - Use oxygen at 4 L/min with activity and 1 L/min while sleeping. - Follow a low-sodium diet, avoiding potato chips and other salty foods. - Schedule and attend follow-up CT scans as planned. - Monitor your blood glucose levels regularly and aim for an A1c of less than 7.0. - Watch for symptoms like increased shortness of breath or fatigue, and report them if they worsen. - Continue your current medication routine, including Trelegy, metformin, and atorvastatin. - Plan to attend all follow-up appointments with cardiology and pulmonology as scheduled. Orders: Orders CT adrenal wo/w IV con Today E27.8 - Other specified disorders of adrenal gland Metanephrines, Plasma Today E27.8 - Other specified disorders of adrenal gland Aldost/Renin Today E27.8 - Other specified disorders of adrenal gland Complete Blood Count Auto Diff Today D64.9 - Anemia, unspecified Hemoglobin A1c Today D64.9 - Anemia, unspecified Lipid Panel Today D64.9 - Anemia, unspecified, E78.00 - Pure hypercholesterolemia, unspecified Thyroid Stimulating Hormone Today D64.9 - Anemia, unspecified Vitamin D 25-OH Total Today D64.9 - Anemia, unspecified Creatinine Urine Today D64.9 - Anemia, unspecified, E11.65 - Type 2 diabetes mellitus with hyperglycemia Reticulocyte Count Today D64.9 - Anemia, unspecified IRON PROFILE Today D64.9 - Anemia, unspecified B Type Natriuretic Peptide Today D64.9 - Anemia, unspecified Metanephrines, 24hr Urine Today E27.8 - Other specified disorders of adrenal gland Metanephrines, Random Urine Today E27.8 - Other specified disorders of adrenal gland DHEA Sulfate Today E27.8 - Other specified disorders of adrenal gland Comprehensive Met. Panel Today D64.9 - Anemia, unspecified Free T4 (Free Thyroxine) Today D64.9 - Anemia, unspecified Vitamin B12 and Folate Today D64.9 - Anemia, unspecified Ferritin Today D64.9 - Anemia, unspecified Microalbumin, Random (w Creat) Today D64.9 - Anemia, unspecified, E11.65 - Type 2 diabetes mellitus with hyperglycemia UA CC w/rflx Micro + Cult Today D64.9 - Anemia, unspecified, R30.0 - Dysuria Magnesium Today D64.9 - Anemia, unspecified
[2024-06-22 15:44] VITALS: BP 130/82; PULSE 62; TEMP 36.3; O2SAT 93; BMI 29.9
== END 2024-06-22 16:15 | disposition home or self-care (01) ==
LOC: HO.HMCH 15:22
PROVIDERS: PCP Internal Medicine; Visit Provider Internal Medicine
DX: J96.11 Chronic respiratory failure with hypoxia (principal); J43.9 Emphysema, unspecified; I50.9 Heart failure, unspecified; E11.65 Type 2 diabetes mellitus with hyperglycemia; I11.0 Hypertensive heart disease with heart failure; E27.8 Other specified disorders of adrenal gland; E78.00 Pure hypercholesterolemia, unspecified; D64.9 Anemia, unspecified

== ENCOUNTER → 2024-06-22 15:22 | Outpatient (BNVA) | payer MEDICARE, SELFPAY | PROVIDERS: PCP Internal Medicine; Visit Provider Internal Medicine | DX: J43.9 Emphysema, unspecified (principal); J96.11 Chronic respiratory failure with hypoxia; E27.8 Other specified disorders of adrenal gland; E78.00 Pure hypercholesterolemia, unspecified; I11.0 Hypertensive heart disease with heart failure; I50.9 Heart failure, unspecified; E11.65 Type 2 diabetes mellitus with hyperglycemia; Z79.84 Long term (current) use of oral hypoglycemic drugs; Z79.899 Other long term (current) drug therapy | CPT/HCPCS: 96127; 99212 ==

== ENCOUNTER 2024-08-22 07:46 | Outpatient (AMB) | payer MEDICARE, SELFPAY ==
--- NOTE | 2024-08-22 08:04 | MHC.PC.OV ---
Vital Signs 08/22/24 08:06 Height 5 ft 3 in Weight 162 lb BMI 28.7 BP 132/64 Blood Pressure Location Lt brachial Position Sitting Pulse 93 Pulse Source Pulse Oximeter Temp 97.3 F Temp Source Temporal Artery Scan Pulse Oximetry (%) 91 L Oxygen Delivery Method Nasal Cannula Intake Visit Reasons: annual physical Intake Note: Patient is here today for a physical. 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: No Electrical System Specialist: Not Required per policy Accompanied by: Self / Same As Patient Allergies lisinopril Allergy (Unknown, Verified 08/22/24 08:21) creatinine increase Medication List - Last Reconciled 08/22/24 by Michelle Mora PA-C albuterol sulfate 90 mcg/actuation 2 puffs inhalation Q6H PRN atorvastatin 40 mg PO BEDTIME [email or web address] As directed 20-30 mm HG elzfdvpjcjx-opygsvtiu-qdkmnrlk 100-62.5-25 mcg (Trelegy Ellipta) 1 inh inhalation DAILY 30 days furosemide 20 mg See Protocol PO DAILY metformin 500 mg PO BID metoprolol succinate ER 100 mg PO DAILY nifedipine ER 60 mg PO DAILY 30 days Tobacco use date assessed: 08/22/24 Fall risk assessment: No Falls in past year Last assessed Fall Risk: 08/22/24 Dental Screening Dental Screen Date: 05/18/24 HPI annual physical HPI Details 84-year-old female with past medical history of hypertension, hypercholesterolemia, vitamin-D and vitamin B12 deficiency, congestive heart failure, COPD, adrenal mass, diabetes mellitus, chronic hypoxic respiratory failure last seen 06/[address] Kasper coming in for annual exam. Chronic Obstructive Pulmonary Disease (COPD): Managed with Trelegy inhaler and oxygen therapy. No longer uses albuterol. Diabetes Mellitus: A1c at 6.6, controlled with metformin, no recent changes in medication. Peripheral Edema: Bilateral leg swelling, more on one side, managed with compression stockings and Lasix. New worsening swelling on the right side with mild tenderness. Mass above the kidney: Awaiting CT scan scheduling. colonoscopy: Cologuard box 2021 negative due this year, order placed mammogram: declining screening Advanced Directives: HCP and MOLST given to patient today [facility] Medical History Type 2 diabetes mellitus with hyperglycemia Hypertension Chronic hypoxemic respiratory failure Adrenal mass Pneumonia COPD (chronic obstructive pulmonary disease) Congestive heart failure Peripheral vascular disease Obesity (BMI 30.0-34.9) Obesity (BMI 30-39.9) Overweight (BMI 25.0-29.9) Hypercholesterolemia Surgical History No pertinent past surgical history Family History Family/Other Medical history unknown Social History Household Members: Family and Children Housing: House Do you presently have visiting nurse or other home services: No Alcohol intake: never Patient Tobacco Use Status: Former Tobacco user Tobacco use type: Cigarette e-Cigarette/Vaping Use: Never Used Second Hand Smoke Exposure: Yes service: No Current occupational status: retired Cognitive needs: No Hearing needs: No Vision needs: Yes Questionnaire Thrive Questionnaire Date Thrive assessed: 06/22/24 I am a: Patient What is your living situation today?: I have a steady place to live Within the past 12 months, did the food you bought not last and you didn't have the money to get more?: Never true Within the past 12 months, did you worry whether your food would run out before you got money to buy more?: Never true Do you have trouble paying for medicines?: No Do you have trouble getting transportation to medical appointments?: No Do you have trouble paying your heating and electricity bill?: No Do you have trouble taking care of your child, family member or friend?: No Do you have trouble with day-to-day activities such as bathing, preparing meals, shopping, managing finances, etc.?: No Are you currently unemployed and looking for a job?: No Are you interested in more education?: No Please select the resources that you would like help with: None Currently or been in a relationship where the following occur: No concerns reported THRIVE Score: 0 AIMEE-7 AMB Questionnaire AIMEE-7 Date AIMEE - 7 assessed: 05/18/24 Source: Developed by Drs. Cristhian Hills, Keysha Dave, Nick Faria and colleagues, with an educational tracey from [employer]. Review of Systems Const Denies body aches, Denies chills, Denies fever(s), Denies headache(s) and Denies poor appetite Eyes Reports no additional complaints ENT Denies dysphagia, Denies dizziness, Denies headache(s) and Denies odynophagia Card Denies chest pain, Denies syncope, Denies edema, Denies irregular heart rhythm, Denies lightheadedness and Denies dyspnea Resp Denies cough and Denies dyspnea GI Denies abdominal pain, Denies constipation, Denies dysphagia, Denies diarrhea, Denies nausea, Denies odynophagia and Denies vomiting Details: no burning or pain with urination Musc Reports no additional complaints and Denies abnormal gait Skin/Breast Reports system reviewed and no additional complaints, except as documented Neuro Denies abnormal gait, Denies dizziness, Denies syncope and Denies headache(s) Psych Reports no additional complaints Physical exam (Primary Care) Vital Signs: Last Vital Signs Temp 97.3 F 08/22/24 08:06 Pulse 93 08/22/24 08:06 BP 132/64 08/22/24 08:06 Pulse Ox 91 L 08/22/24 08:06 Oxygen Delivery Method Nasal Cannula 08/22/24 08:06 BMI result Body Mass Index 28.7 Tobacco/Smoking Status: Tobacco use Status Tobacco use date assessed 08/22/24 08/22/24 08:14 Patient Tobacco Use Status Former Tobacco user 08/22/24 08:04 Tobacco use type Cigarette 08/22/24 08:04 e-Cigarette/Vaping Use Never Used 08/22/24 08:04 Thrive Assessment: Date of Thrive Assessment Date Thrive assessed 06/22/24 08/22/24 08:04 Currently or been in a relationship where the following occur: No concerns reported Const General: cooperative, healthy appearing, comfortable and no acute distress Orientation/consciousness: patient oriented x3 HENMT Head: Yes normocephalic Ears: hearing grossly normal bilaterally General nose exam: Normal external nose present Face and sinus: Yes normal facial exam and Yes sinuses nontender Mouth: Normal oral and palatal mucosa present and tongue normal Throat: Yes posterior oropharynx normal Eyes General: appearance normal, both eyes and all related structures Conjunctivae: conjunctivae normal Pupils: Equal, round and reactive pupils present EOM: EOMs intact bilaterally and No Nystagmus present Neck Neck: Yes full ROM and Yes no lymphadenopathy Chest Chest palpation & inspection: normal inspection of the chest Resp Effort & Inspection: normal respiratory effort Auscultation: clear to auscultation bilaterally, no crackles, no rales, no rhonchi and no wheezes Cardio Rate: regular rate Rhythm: regular rhythm Peripheral pulses: radial pulses present and dorsalis pedis present GI Inspection: Yes normal to inspection and No Abdominal wall edema Palpation (GI): Soft to palpation, not firm and nontender Auscultation: normal bowel sounds Rectal Exam - Female: deferred General: Yes no CVA tenderness Back/Spine/Pelvis Back: no CVA tenderness Skin General skin exam: no rashes or lesions noted Neuro General: patient oriented x3 Cranial nerves: Yes Equal, round and reactive pupils present, Yes Midline tongue present, Yes Ability to bilaterally elevate shoulders present and No Nystagmus present Gait exam (Neuro): Normal gait present Extrem Other: 1+ pitting edema of left lower extremity without tenderness to palpation. 2+ pitting edema of right lower extremity with tenderness to palpation. General: Yes normal to inspection and Yes full ROM Psych Speech and movement: Normal speech and movement present Affect: normal affect Attitude: cooperative Insight: Good insight present (Psych) Judgement: Good judgement present (Psych) Results AMB Hemoglobin A1c AMB Hemoglobin A1c 6.8 % Last Edit by AMY Olivas on 08/22/24 08:18 Results Reviewed Results Reviewed: Laboratory Last Values Hgb A1c (Clinic) 6.8 % (4.0-6.0) H 08/22/24 08:05 Coding Level of Care Code Est Pt Level 3 (26226) Est Pt Prev Care >65y(58019) Diagnoses Annual physical exam Z00.00 Right leg swelling M79.89 Essential hypertension I10 Hypertension type: essential hypertension Acute congestive heart failure, unspecified heart failure type I50.9 Heart failure chronicity: acute Heart failure type: unspecified Hypercholesterolemia E78.00 Type 2 diabetes mellitus with hyperglycemia, without long-term current use of insulin E11.65 Diabetes mellitus jail insulin use: without terminal gauger use Adrenal mass E27.8 Overweight (BMI 25.0-29.9) E66.3 Pulmonary emphysema, unspecified emphysema type J43.9 COPD type: emphysema Emphysema type: unspecified Chronic hypoxemic respiratory failure J96.11 Vitamin D deficiency E55.9 Vitamin B12 deficiency E53.8 Assessment & Plan Assessment & Plan (1) Annual physical exam: Code(s): Z00.00 - Encounter for general adult medical examination without abnormal findings Category: Medical Plan: Patient is up-to-date on all recommended routine screenings and vaccinations for her age. I did provide the patient with healthcare proxy form and MOLST form to be completed prior to next visit. She is due for a tetanus vaccine which is deferred today. Reminded patient about blood work (2) Right leg swelling: Code(s): M79.89 - Other specified soft tissue disorders Category: Medical Plan: Patient does report bilateral lower extremity swelling which is chronic and managed with Lasix, compression stockings and elevation. She does have new onset worsening right lower extremity edema and pain. Given new presentation plan to obtain stat ultrasound to rule out DVT. I did also reminded patient about completing blood work which includes a BNP. (3) Hypertension: Code(s): I10 - Essential (primary) hypertension Category: Medical Qualifiers: Hypertension type: essential hypertension Qualified Code(s): I10 - Essential (primary) hypertension Plan: Continue on current blood pressure medication. Avoid salt intake and encourage healthy diet and regular exercise. (4) Congestive heart failure: Code(s): I50.9 - Heart failure, unspecified Category: Medical Qualifiers: Heart failure chronicity: acute Heart failure type: unspecified Qualified Code(s): I50.9 - Heart failure, unspecified Plan: Continue to monitor daily weights. On furosemide. Continue to follow with Cardiology (5) Hypercholesterolemia: Code(s): E78.00 - Pure hypercholesterolemia, unspecified Category: Medical Plan: Avoid foods that are high in cholesterol such as red meat, fried foods, eggs and baked goods. Triglyceride goal of less than 150 and LDL goal of less than 70. Continue on atorvastatin 40 (6) Type 2 diabetes mellitus with hyperglycemia: Comment: Dr. Green Code(s): E11.65 - Type 2 diabetes mellitus with hyperglycemia Category: Medical Qualifiers: Diabetes mellitus jail insulin use: without terminal gauger use Qualified Code(s): E11.65 - Type 2 diabetes mellitus with hyperglycemia Plan: Decrease the amount of carbohydrates such as pasta, bread, rice, and potatoes and limit the amount of sweets. Although fruits are generally healthy they should be eaten in moderation as they are still high in sugar. Hemoglobin A1c goal of less than 7%. A1c in the clinic today 6.8% currently on metformin. (7) Adrenal mass: Code(s): E27.8 - Other specified disorders of adrenal gland Category: Medical Plan: CT of the adrenals with IV contrast was ordered by Dr. Kasper currently awaiting schedule. Plan to reach out to scheduling for status report. (8) Overweight (BMI 25.0-29.9): Code(s): E66.3 - Overweight Category: Medical Plan: Healthy diet and regular exercise is encouraged. (9) COPD (chronic obstructive pulmonary disease): Code(s): J44.9 - Chronic obstructive pulmonary disease, unspecified Category: Medical Qualifiers: COPD type: emphysema Emphysema type: unspecified Qualified Code(s): J43.9 - Emphysema, unspecified Plan: Patient is currently following with pulmonology on albuterol as needed and Trelegy. (10) Chronic hypoxemic respiratory failure: Code(s): J96.11 - Chronic respiratory failure with hypoxia Category: Medical Plan: Continue with maintenance and rescue inhaler as well as supplemental oxygen. Continue to follow with pulmonology (11) Vitamin D deficiency: Code(s): E55.9 - Vitamin D deficiency, unspecified Category: Medical Plan: Continue to monitor lab work in ordered for updated labs. (12) Vitamin B12 deficiency: Code(s): E53.8 - Deficiency of other specified B group vitamins Category: Medical Plan: See above plan Plan This note was constructed using voice recognition software. While every effort has been made to ensure accuracy and parking regulation enforcement officer, still areas may have been included sometimes these areas may affect the content or meeting of the given symptoms. Total time spent caring for the patient today was 30 minutes. This includes time spent before the visit reviewing the chart, time spent during the visit, and time spent after the visit and documentation. Patient was informed and verbally consented to the use of an ambient scribe for clinic note documentation during this visit. Orders: Orders AMB Hemoglobin A1c Today E11.65 - Type 2 diabetes mellitus with hyperglycemia venous duplex LE RT Today M79.89 - Other specified soft tissue disorders Referrals Cologuard Test Z12.11 - Encounter for screening for malignant neoplasm of colon, Z12.12 - Encounter for screening for malignant neoplasm of rectum
[2024-08-22 08:06] VITALS: BP 132/64; PULSE 93; TEMP 36.3; O2SAT 91; BMI 28.7
== END 2024-08-22 09:22 | disposition home or self-care (01) ==
LOC: HO.HMCH 07:47
PROVIDERS: PCP Internal Medicine
DX: E11.65 Type 2 diabetes mellitus with hyperglycemia (principal)

== ENCOUNTER 2024-08-22 12:19 | Outpatient (REF) | payer MEDICARE, SELFPAY ==
--- NOTE | ~2024-08-22 | US_ITS ---
EXAMINATION: US TRIPLEX LOWER EXTREMITY, RIGHT CLINICAL INFORMATION: Swelling/edema pattern, right lower extremity. COMPARISON: None available. TECHNIQUE: Color-flow triplex imaging with spectral analysis and compression Doppler were performed on the right lower extremity. FINDINGS: Respiratory variation, normal compression and augmented flow are present in the interrogated right common femoral vein, superficial femoral vein, profunda femoral vein, popliteal vein and midcalf peroneal and posterior tibial venous segments. There is no Cunningham's cyst. US/US venous duplex LE RT IMPRESSION: No acute deep venous thrombosis interrogated veins, right lower extremity. Negative for DVT. Electronically signed by: Fritz Alonso MD 08/22/2024 01:34 PM EDT
== END 2024-08-22 12:20 | disposition home or self-care (01) ==
LOC: HO.US 12:19
PROVIDERS: PCP Internal Medicine
DX: Z00.01 Encounter for general adult medical examination with abnormal findings (principal); M79.89 Other specified soft tissue disorders; I11.0 Hypertensive heart disease with heart failure; I50.9 Heart failure, unspecified; E78.00 Pure hypercholesterolemia, unspecified; E11.65 Type 2 diabetes mellitus with hyperglycemia; E27.8 Other specified disorders of adrenal gland; J43.9 Emphysema, unspecified; J96.11 Chronic respiratory failure with hypoxia; E66.3 Overweight; E55.9 Vitamin D deficiency, unspecified; E53.8 Deficiency of other specified B group vitamins; Z68.28 Body mass index [BMI] 28.0-28.9, adult; Z99.81 Dependence on supplemental oxygen
CPT/HCPCS: 83036; 93971; 99212; 99397

== ENCOUNTER → 2024-08-22 12:28 | Outpatient (BNV) | payer MEDICARE, SELFPAY | PROVIDERS: PCP Internal Medicine; Visit Provider Radiology Diagnostic Radiology | DX: R22.41 Localized swelling, mass and lump, right lower limb (principal) | CPT/HCPCS: 93971 ==

== ENCOUNTER 2024-08-27 07:47 | Outpatient (REF) | payer MEDICARE, SELFPAY ==
[2024-08-27 08:52] LABS: MANUAL DIFF FLAG NO
[2024-08-27 08:56] LABS: Hematocrit 34.3 % (37.0-47.0); Hemoglobin 11.1 g/dl (12.0-16.0); Imm Gran Abs Auto 0.01 X10*3/uL (0.00-0.03); Imm Gran Pct Auto 0.2 % (0.0-0.4); Lymphocytes Absolute Auto 1.4 X10*3/uL (1.2-4.9); Mean Corpuscular HGB Conc 32.4 g/dl (31.0-35.0); Mean Corpuscular Hemoglobin 28.2 pg (27.0-33.0); Mean Corpuscular Volume 87.1 fL (80.0-98.0); NRBC Abs Auto 0.000 X10*3/uL (0.0-0.012); NRBC Pct Auto 0.0 /100WBC (0.0-0.2); Platelet Count 159 X10*3/uL (160-400); Red Blood Count 3.94 X10*6/uL (4.20-5.50); Reticulocytes Absolute 0.067 X10*6/uL (0.026-0.095); White Blood Count 5.2 X10*3/uL (4.8-10.8)
[2024-08-27 09:17] LABS: B Type Natriuretic Peptide 20 pg/mL (<100)
[2024-08-27 09:19] LABS: Hemoglobin A1C 153.0600 umol/L; Total Hemoglobin (HGBA1C) 2957.0966 umol/L
[2024-08-27 09:26] LABS: Alanine Aminotransferase < 6 U/L (0-31); Albumin Level 4.1 g/dL (3.5-5.0); Alkaline Phosphatase 76 U/L (39-117); Anion Gap 15 (12-20); Aspartate Amino Transferase 16 U/L (5-31); Blood Urea Nitrogen 32 mg/dL (9-16); Calcium 9.9 mg/dL (8.4-10.2); Carbon Dioxide 30 mmol/L (22-29); Chloride 100 mmol/L (96-108); Cholesterol 114 mg/dL (<200); Estimated Glomerular Filt Rate 47; HDL Cholesterol 40 mg/dL (>40); Iron 64 mcg/dL (30-160); Magnesium 1.4 mg/dL (1.6-2.6); Percent Iron Saturation 24 % (15-50); Potassium 3.6 mmol/L (3.3-5.1); Sodium 141 mmol/L (135-145); Total Iron Binding Capacity 266 mcg/dL (228-428); Total Protein 7.3 g/dL (6.5-8.0); Triglycerides 78 mg/dL (<150); Unsaturated Iron Binding 202 ug/dL
[2024-08-27 09:36] LABS: Ferritin 59 ng/mL (10-250); Free T4 (Free Thyroxine) 1.17 ng/dL (0.71-1.85); Thyroid Stimulating Hormone 0.85 uIU/mL (0.32-4.0)
[2024-08-27 09:48] LABS: Folate 6.9 ng/mL (> or = 4.0); Vitamin B12 423 pg/mL (200-900)
[2024-08-27 10:57] LABS: Appearance Urine Clear; Glucose Urine UA Negative (Negative); PH 6.0 (5.0-9.0); Specific Gravity - Urine 1.015 (1.005-1.025)
[2024-08-27 12:14] LABS: Microalbum/Creatinine Ratio Ur 8.1 ug/mg cr (<30)
[2024-08-31 01:58] LABS: Metanephrine, Free 52 pg/mL (<=57); Normetanephrines, Free 183 pg/mL (<=148); Total Metanephrine, Free 235 pg/mL (<=205)
[2024-08-31 14:08] LABS: Metanephrine, Free Rand Ur 173 mcg/g cr (21-153); Normetanephrine, Free Rand Ur 406 mcg/g cr (108-524); Total Metanephrine, Free RU 579 mcg/g cr (149-603)
[2024-09-01 13:34] LABS: Plasma Renin Activity 0.29 ng/mL/h (0.25-5.82)
== END 2024-08-27 07:48 | disposition home or self-care (01) ==
LOC: HO.HMGCLDS 07:47
PROVIDERS: PCP Internal Medicine; Visit Provider Internal Medicine
DX: E11.65 Type 2 diabetes mellitus with hyperglycemia (principal); E27.8 Other specified disorders of adrenal gland; E78.00 Pure hypercholesterolemia, unspecified; D64.9 Anemia, unspecified; R30.0 Dysuria
CPT/HCPCS: 36415; 80053; 80061; 81003; 82043; 82088; 82306; 82570; 82607; 82627; 82728; 82746; 83036; 83540; 83735; 83835; 83880; 84439; 84443; 85025; 85045

== ENCOUNTER 2024-08-30 12:49 | Outpatient (REF) | payer MEDICARE, SELFPAY ==
[2024-09-06 06:28] LABS: Metanephrine, Free 24U 148 mcg/24 h (90-315); Normetanephrine, Free 24U 271 mcg/24 h (122-676); Total Metanephrine, Free 24U 419 mcg/24 h (224-832); Total Volume 24U 1350 mL
== END 2024-08-30 12:50 | disposition home or self-care (01) ==
LOC: HO.LNP 12:49
PROVIDERS: Visit Provider Internal Medicine
DX: E27.8 Other specified disorders of adrenal gland (principal)
CPT/HCPCS: 83835

== ENCOUNTER 2024-09-26 10:23 | Outpatient (AMB) | payer MEDICARE, SELFPAY ==
[2024-09-26 10:25] VITALS: BP 170/84; PULSE 76; O2SAT 90; BMI 30.5
--- NOTE | 2024-09-26 10:25 | A.OFFVIS_ITS ---
Vital Signs 09/26/24 10:25 Height 5 ft 3 in Weight 171 lb 15.369 oz BMI 30.5 BP 170/84 H Blood Pressure Location Lt brachial Position Sitting Pulse 76 Pulse Source Pulse Oximeter Pulse Oximetry (%) 90 L Oxygen Delivery Method Room Air Intake Visit Reasons: COPD Accompanied by: Self / Same As Patient Allergies lisinopril Allergy (Unknown, Verified 09/26/24 10:26) creatinine increase HPI Comments Details: The patient is an 83 year woman with a known history of COPD who apparently was in his usual state health until back in April when she started developing acute respiratory failure. She was admitted to the [facility]. There she was initially evaluated in the ER and had imaging studies including a chest x- ray demonstrating a right lower lobe opacity. She also had a CT scan of the abdomen which was personally by me demonstrating the right lower lobe consolidation but also a 1.7 cm growth on the left adrenal gland suggesting of an adenoma although can not rule out metastatic disease. When further evaluating the right lower lobe area there seems to be around about areas so therefore an occult malignant process can not be ruled out. The patient is using oxygen now since then. She has a hard time with the oxygen tanks specially since she has issues with her walking. We did walker with a POC and the patient did well until we got back and then at that point she we had to increase her 3 L pulse to 4 L pulse. She was able to maintain a pulse ox in the 90% range. Therefore is reasonable to get her a portable oxygen concentrator for better portability outside of the home and therefore he can she will more more adherent to using it to help her specially with a cardiac condition. The patient will also switch over from Advair to Trelegy. The patient will undergo a CT scan of the chest and follow-up in 3-4 months. She has any issues prior to that she will call for an earlier assessment. Also to note will have [employer] do an overnight oximetry on 1 L of oxygen that she uses while sleeping. 09/26/2024 the patient is here for a pulmonary follow-up visit. Overall the patient is doing very well. She feels like the Trelegy has been very affecting beneficial. She also feels like the diuresis has helped her. She still has significant lower extremity edema. She may be a good candidate for the lymphedema clinic. I did ask her to speak to her primary care doctor about that. She should also elevate the legs as much as possible during the daytime. The patient also has been using the oxygen with a POC. This has been affecting beneficial. She does use the oxygen about 16 hours a day. As far as imaging studies she did have a CT scan demonstrated the pleural effusion in the consolidation back in the springtime. She has not had any imaging studies. Will go ahead and request a repeat chest x-ray to address the area. If it is still abnormal will consider getting a CT scan. But clinically she is feeling better so I suppose that the x-ray we sufficient for now. She does have the adrenal lesion noted. She will follow-up also with her specialists regarding the adrenal issue. [facility] Medical History Type 2 diabetes mellitus with hyperglycemia Hypertension Chronic hypoxemic respiratory failure Adrenal mass Pneumonia COPD (chronic obstructive pulmonary disease) Congestive heart failure Peripheral vascular disease Obesity (BMI 30.0-34.9) Obesity (BMI 30-39.9) Overweight (BMI 25.0-29.9) Hypercholesterolemia Surgical History No pertinent past surgical history Family History Family/Other Medical history unknown Social History Household Members: Family and Children Housing: House Do you presently have visiting nurse or other home services: No Alcohol intake: never Patient Tobacco Use Status: Former Tobacco user Tobacco use type: Cigarette e-Cigarette/Vaping Use: Never Used Second Hand Smoke Exposure: Yes service: No Current occupational status: retired Cognitive needs: No Hearing needs: No Vision needs: Yes Review of Systems Const Denies chills, Denies daytime sleepiness, Denies fatigue, Denies fever(s), Denies poor appetite, Denies snoring, Denies stops breathing during sleep, Denies weakness, Denies weight gain and Denies weight loss Eyes Denies loss of vision ENT Denies dizziness and Denies hearing loss Card Denies chest pain, Denies irregular heart rhythm, Denies claudication, Denies leg edema, Denies lightheadedness, Denies palpitations, Reports dyspnea on exertion and Denies orthopnea Resp Reports cough, Denies excessive phlegm production, Reports dyspnea on exertion, Denies snoring and Denies wheezing GI Denies abdominal pain, Denies hematochezia, Denies change in bowel habits, Denies nausea and Denies vomiting Denies urinary frequency and Denies dysuria Musc Reports abnormal gait, Reports myalgias, Reports arthralgias and Denies numbness Skin/Breast Denies rash Neuro Denies Abnormal speech present, Reports abnormal gait, Denies dizziness, Denies loss of vision, Denies memory loss, Denies numbness and Denies weakness Psych Denies depression and Denies memory loss Endo Denies fatigue and Denies palpitations Deangelo/Lymph Denies easy bruising Aller/Immun Denies wheezing Physical Exam Vital Signs: Last Vital Signs Pulse 76 09/26/24 10:25 BP 170/84 H 09/26/24 10:25 Pulse Ox 90 L 09/26/24 10:25 Oxygen Delivery Method Room Air 09/26/24 10:25 BMI result Body Mass Index 30.5 Const General: cooperative, comfortable, no acute distress, alert and awake Nutritional Appearance: overweight Orientation/consciousness: patient oriented x3 Limitations: no limitations HEENT Head: Yes normocephalic and Yes atraumatic Neck Neck: Yes trachea midline, Yes supple and Yes no JVD Chest Chest palpation & inspection: normal inspection of the chest Resp Effort & Inspection: normal respiratory effort Auscultation: no wheezes and diminished lung sounds Cardio Jugular venous distension: no JVD Rate: regular rate Rhythm: regular rhythm Heart sounds: S1 normal heart sound present and S2 normal heart sound present GI Auscultation: normal bowel sounds Skin General skin exam: no rashes or lesions noted Neuro General: patient oriented x3 and no focal motor deficits Speech: No Abnormal speech present Extrem General: No clubbing, No cyanosis and Yes edema Assessment & Plan Assessment & Plan (1) COPD (chronic obstructive pulmonary disease): Code(s): J44.9 - Chronic obstructive pulmonary disease, unspecified Category: Medical Qualifiers: COPD type: emphysema Emphysema type: unspecified Qualified Code(s): J43.9 - Emphysema, unspecified (2) Congestive heart failure: Code(s): I50.9 - Heart failure, unspecified Category: Medical Qualifiers: Heart failure chronicity: acute Heart failure type: unspecified Qualified Code(s): I50.9 - Heart failure, unspecified (3) Pneumonia: Code(s): J18.9 - Pneumonia, unspecified organism Category: Medical Qualifiers: Laterality: right Lung location: lower lobe of lung Pneumonia type: due to unspecified organism Qualified Code(s): J18.9 - Pneumonia, unspecified organism (4) Adrenal mass: Code(s): E27.8 - Other specified disorders of adrenal gland Category: Medical (5) Chronic hypoxemic respiratory failure: Code(s): J96.11 - Chronic respiratory failure with hypoxia Category: Medical Plan Oxygen revision: POC 4L/min with activity, 1l/min continues to sleep. POC for portability outside of the home Overnight oximetry on 1L/min nasal cannula continue Trelegy Repeat CXR, if abnormal then CT chest diursesis as tolerated bloodwork ?lymphedema clinic F/U 6 months Orders: Orders Complete Blood Count Auto Diff Today I50.9 - Heart failure, unspecified, J18.9 - Pneumonia, unspecified organism Basic Metabolic Panel Today I50.9 - Heart failure, unspecified, J18.9 - Pneumonia, unspecified organism XR chest 2V Today I50.9 - Heart failure, unspecified, J18.9 - Pneumonia, unspecified organism Medications: New furosemide (Lasix) 40 mg (2 x 20 mg) PO DAILY 30 days 60 tabs 0RF albuterol sulfate 90 mcg/actuation (Ventolin HFA) 2 puffs inhalation QID PRN 18 grams 11RF shortness of breath or wheezing 30 days Coding Level of Care Code Est Pt Level 4 (30563) Complex EM visit Add On G2211 Diagnoses Pulmonary emphysema, unspecified emphysema type J43.9 COPD type: emphysema Emphysema type: unspecified Acute congestive heart failure, unspecified heart failure type I50.9 Heart failure chronicity: acute Heart failure type: unspecified Pneumonia of right lower lobe due to infectious organism J18.9 Laterality: right Lung location: lower lobe of lung Pneumonia type: due to unspecified organism Adrenal mass E27.8 Chronic hypoxemic respiratory failure J96.11 Time Spent (min) 17
== END 2024-09-26 10:47 | disposition home or self-care (01) ==
LOC: HO.HPS 10:24
PROVIDERS: PCP Internal Medicine; Visit Provider Hospitalist
DX: J43.9 Emphysema, unspecified (principal); I50.9 Heart failure, unspecified; J18.9 Pneumonia, unspecified organism; E27.8 Other specified disorders of adrenal gland; J96.11 Chronic respiratory failure with hypoxia
CPT/HCPCS: 99214; G2211

== ENCOUNTER → 2024-09-26 10:23 | Outpatient (BNVA) | payer MEDICARE, SELFPAY | PROVIDERS: PCP Internal Medicine; Visit Provider Hospitalist | DX: J43.9 Emphysema, unspecified (principal); J18.9 Pneumonia, unspecified organism; J96.11 Chronic respiratory failure with hypoxia; I11.0 Hypertensive heart disease with heart failure; I50.9 Heart failure, unspecified; E27.8 Other specified disorders of adrenal gland | CPT/HCPCS: 99212 ==

== ENCOUNTER 2024-09-29 07:56 | Outpatient (REF) | payer MEDICARE, SELFPAY ==
--- NOTE | ~2024-09-29 | XR_ITS ---
EXAMINATION: XR CHEST 2 VIEWS HISTORY: I50.9 - Heart failure, unspecified COMPARISON: Comparison is made with the prior examination dated 05/06/2024. FINDINGS: PA and lateral views of the chest are submitted. There is a faint opacity in the right upper lobe, suggestive of pneumonia. The left lung is clear. There is no pleural effusion, pneumothorax, or pulmonary vascular congestion. The heart is normal in size. The aorta is tortuous and calcified. There is degenerative disc disease of the spine. XR/XR chest 2V IMPRESSION: Faint opacity in the right upper lobe, suggestive of pneumonia. Follow-up is recommended. Electronically signed by: Cristhian Sánchez MD 10/01/2024 07:17 AM EDT
[2024-09-29 08:27] LABS: MANUAL DIFF FLAG NO
[2024-09-29 08:38] LABS: Hematocrit 34.4 % (37.0-47.0); Hemoglobin 10.6 g/dl (12.0-16.0); Imm Gran Abs Auto 0.01 X10*3/uL (0.00-0.03); Imm Gran Pct Auto 0.2 % (0.0-0.4); Lymphocytes Absolute Auto 1.3 X10*3/uL (1.2-4.9); Mean Corpuscular HGB Conc 30.8 g/dl (31.0-35.0); Mean Corpuscular Hemoglobin 27.4 pg (27.0-33.0); Mean Corpuscular Volume 88.9 fL (80.0-98.0); NRBC Abs Auto 0.000 X10*3/uL (0.0-0.012); NRBC Pct Auto 0.0 /100WBC (0.0-0.2); Platelet Count 160 X10*3/uL (160-400); Red Blood Count 3.87 X10*6/uL (4.20-5.50); White Blood Count 4.3 X10*3/uL (4.8-10.8)
[2024-09-29 09:20] LABS: Anion Gap 14 (12-20); Blood Urea Nitrogen 21 mg/dL (9-16); Calcium 10.2 mg/dL (8.4-10.2); Carbon Dioxide 25 mmol/L (22-29); Chloride 105 mmol/L (96-108); Estimated Glomerular Filt Rate 50; Potassium 4.4 mmol/L (3.3-5.1); Sodium 140 mmol/L (135-145)
== END 2024-09-29 07:57 | disposition home or self-care (01) ==
LOC: HO.XRAY 07:56
PROVIDERS: PCP Internal Medicine; Visit Provider Hospitalist
DX: I50.9 Heart failure, unspecified (principal); J18.9 Pneumonia, unspecified organism
CPT/HCPCS: 36415; 71046; 80048; 85025

== ENCOUNTER → 2024-09-29 08:31 | Outpatient (BNV) | payer MEDICARE, SELFPAY | PROVIDERS: PCP Internal Medicine; Visit Provider Radiology Diagnostic Radiology | DX: R91.8 Other nonspecific abnormal finding of lung field (principal) | CPT/HCPCS: 71046 ==

== ENCOUNTER 2024-10-19 09:51 | Outpatient (AMB) | payer MEDICARE, SELFPAY ==
[2024-10-19 09:56] VITALS: BP 132/68; PULSE 95; TEMP 36.2; O2SAT 94; BMI 28.9
--- NOTE | 2024-10-19 09:56 | MHC.PC.OV ---
Vital Signs 10/19/24 09:56 Height 5 ft 3 in Weight 163 lb BMI 28.9 BP 132/68 Blood Pressure Location Lt brachial Position Sitting Pulse 95 Pulse Source Pulse Oximeter Temp 97.1 F Temp Source Temporal Artery Scan Pulse Oximetry (%) 94 Oxygen Delivery Method Nasal Cannula Oxygen Flow Rate 3 Intake Visit Reasons: hyopercholesterol, CHF, DM Allergies lisinopril Allergy (Unknown, Verified 10/19/24 10:03) creatinine increase Medication List - Last Reconciled 10/19/24 by Rell Kasper MD albuterol sulfate 90 mcg/actuation 2 puffs inhalation Q6H PRN albuterol sulfate 90 mcg/actuation (Ventolin HFA) 2 puffs inhalation QID PRN 30 days atorvastatin 40 mg PO BEDTIME [email or web address] As directed 20-30 mm HG furosemide (Lasix) 40 mg (2 x 20 mg) PO DAILY hydrochlorothiazide 12.5 mg PO DAILY magnesium oxide 250 mg PO BID metformin 500 mg PO BID metoprolol succinate ER 100 mg PO DAILY nifedipine ER 30 mg PO DAILY 30 days Tobacco use date assessed: 10/19/24 Fall risk assessment: No Falls in past year Last assessed Fall Risk: 10/19/24 Dental Screening Dental Screen Date: 10/19/24 Did you have a dental visit in the last 12 months?: No Did you have a dental problem in the last 6 months where you did not have access to dental care?: No Was dental information given to patient?: Patient declined [facility] Medical History Type 2 diabetes mellitus with hyperglycemia Hypertension Chronic hypoxemic respiratory failure Adrenal mass Pneumonia COPD (chronic obstructive pulmonary disease) Congestive heart failure Peripheral vascular disease Obesity (BMI 30.0-34.9) Obesity (BMI 30-39.9) Overweight (BMI 25.0-29.9) Hypercholesterolemia Surgical History No pertinent past surgical history Family History Family/Other Medical history unknown Social History Household Members: Family and Children Housing: House Do you presently have visiting nurse or other home services: No Alcohol intake: never Patient Tobacco Use Status: Former Tobacco user Tobacco use type: Cigarette e-Cigarette/Vaping Use: Never Used Second Hand Smoke Exposure: Yes service: No Current occupational status: retired Cognitive needs: No Hearing needs: No Vision needs: Yes Questionnaire PHQ-9 Over the last 2 weeks, how often have you been bothered by any of the following problems? 1. Little interest or pleasure in doing things: not at all 2. Feeling down, depressed, or hopeless: not at all 3. Trouble falling or staying asleep, or sleeping too much: not at all 4. Feeling tired or having little energy: not at all 5. Poor appetite or overeating: not at all 6. Feeling bad about yourself - or that you are a failure or have let yourself or your family down: not at all 7. Trouble concentrating on things, such as reading the newspaper or watching television: not at all 8. Moving or speaking so slowly that other people could have noticed. Or the opposite - being so fidgety or restless that you have been moving around a lot more than usual: not at all 9. Thoughts that you would be better off or of hurting yourself in some way: not at all Total score: 0 Depression Screening Interpretation: Negative Depression Screening Done: Yes Source: Developed by Drs. Cristhian Hills, Keysha Dave, Nick Faria and colleagues, with an educational tracey from [employer]. Thrive Questionnaire Date Thrive assessed: 06/22/24 I am a: Patient What is your living situation today?: I have a steady place to live Within the past 12 months, did the food you bought not last and you didn't have the money to get more?: Never true Within the past 12 months, did you worry whether your food would run out before you got money to buy more?: Never true Do you have trouble paying for medicines?: No Do you have trouble getting transportation to medical appointments?: No Do you have trouble paying your heating and electricity bill?: No Do you have trouble taking care of your child, family member or friend?: No Do you have trouble with day-to-day activities such as bathing, preparing meals, shopping, managing finances, etc.?: No Are you currently unemployed and looking for a job?: No Are you interested in more education?: No Please select the resources that you would like help with: None Currently or been in a relationship where the following occur: No concerns reported THRIVE Score: 0 AUDIT C Alcohol Use Questionnaire (AUDIT-C) 1. How often do you have a drink containing alcohol?: Never 3. How often do you have six or more drinks on one occasion?: Never Total Score: 0 AIMEE-7 AMB Questionnaire AIMEE-7 Date AIMEE - 7 assessed: 05/18/24 Feeling nervous, anxious, or on edge: 0 = Not at all Not being able to stop or control worryin = Not at all Worrying too much about different things: 0 = Not at all Trouble relaxin = Not at all Being so restless that it is hard to sit still: 0 = Not at all Becoming easily annoyed or irritable: 0 = Not at all Feeling afraid as if something awful might happen: 0 = Not at all Total AIMEE-7 score (0-4 normal; 5-9 mild; 10-14 moderate; 15-21 severe): 0 Source: Developed by Drs. Cristhian Hills, Keysha Dave, Nick Faria and colleagues, with an educational tracey from [employer]. Physical exam (Primary Care) Vital Signs: Last Vital Signs Temp 97.1 F 10/19/24 09:56 Pulse 95 10/19/24 09:56 BP 132/68 10/19/24 09:56 Pulse Ox 94 10/19/24 09:56 Oxygen Delivery Method Nasal Cannula 10/19/24 09:56 Oxygen Flow Rate 3 10/19/24 09:56 BMI result Body Mass Index 28.9 Tobacco/Smoking Status: Tobacco use Status Tobacco use date assessed 10/19/24 10/19/24 10:04 Patient Tobacco Use Status Former Tobacco user 10/19/24 10:04 Tobacco use type Cigarette 10/19/24 10:04 e-Cigarette/Vaping Use Never Used 10/19/24 10:04 PHQ-9: PHQ-9 Score PHQ-9: Total score 0 10/19/24 10:12 Depression Screening Interpretation: Negative Thrive Assessment: Date of Thrive Assessment Date Thrive assessed 06/22/24 10/19/24 10:04 Currently or been in a relationship where the following occur: No concerns reported Const General: alert; No acute distress Eyes Conjunctivae: conjunctivae normal Resp Auscultation: clear to auscultation bilaterally Cardio Rate: regular rate Rhythm: regular rhythm GI Inspection: Yes normal to inspection Extrem General: Yes normal to inspection and No edema Coding Level of Care Code Est Pt Level 4 (42416) Complex EM visit Add On G2211 Diagnoses Essential hypertension I10 Hypertension type: essential hypertension Hypercholesterolemia E78.00 Type 2 diabetes mellitus with hyperglycemia, without long-term current use of insulin E11.65 Diabetes mellitus supervisor intermediates insulin use: without nursing home use Overweight (BMI 25.0-29.9) E66.3 Pulmonary emphysema, unspecified emphysema type J43.9 COPD type: emphysema Emphysema type: unspecified Assessment & Plan Assessment & Plan (1) Hypertension: Code(s): I10 - Essential (primary) hypertension Category: Medical Qualifiers: Hypertension type: essential hypertension Qualified Code(s): I10 - Essential (primary) hypertension Plan: Continue with blood pressure medication. Decrease salt intake and exercise patient is on metoprolol 100 mg once a day nifedipine 60 mg once a day. due to leg sweling will decrease nifedipine and add HCTZ (2) Hypercholesterolemia: Code(s): E78.00 - Pure hypercholesterolemia, unspecified Category: Medical Plan: Avoid fried foods, chicken skin, eggs, butter margarine, pastries and meat. Be it pork or beef they have a lot of cholesterol LDL goal of less than 70 and triglyceride of less than 150 on atorvastatin 40 mg once a day (3) Type 2 diabetes mellitus with hyperglycemia: Comment: Dr. Green Code(s): E11.65 - Type 2 diabetes mellitus with hyperglycemia Category: Medical Qualifiers: Diabetes mellitus supervisor intermediates insulin use: without supervisor intermediates use Qualified Code(s): E11.65 - Type 2 diabetes mellitus with hyperglycemia Plan: Decrease the amount of carbohydrate intake, pasta, bread, rice and potatoes are all sugar and that is aside from all the sweet stuff, remember that fruits are good but they are Sweet also. Diet controlled (4) Overweight (BMI 25.0-29.9): Code(s): E66.3 - Overweight Category: Medical Plan: Diet and exercise (5) COPD (chronic obstructive pulmonary disease): Code(s): J44.9 - Chronic obstructive pulmonary disease, unspecified Category: Medical Qualifiers: COPD type: emphysema Emphysema type: unspecified Qualified Code(s): J43.9 - Emphysema, unspecified Plan: Continue with Trelegy and albuterol patient follows up with Pulmonary recent x-ray showing pneumonia Plan History of Present Illness The patient is an 84-year-old female presenting for a follow-up visit after being last seen in August, with a focus on managing her chronic conditions and recent pneumonia diagnosis. The patient has a history of diabetes mellitus, hypercholesterolemia, congestive heart failure, chronic obstructive pulmonary disease (COPD), and hypertension. She experienced an 8-pound weight loss recently and is currently on a regimen including metoprolol, nifedipine, and atorvastatin. In September, a chest x-ray revealed a faint opacity in the right upper lobe suggestive of pneumonia, and she was hospitalized for this condition. She was on oxygen therapy, using 4 liters with activity and 1 liter during sleep, and is currently on Trelegy and albuterol for COPD management. Her last blood work in September showed anemia with a hemoglobin level of 10.6 and leukopenia, while her electrolytes and renal function were stable. Her blood sugar was 103 mg/dL, and her last hemoglobin A1c in August was 6.9%. Her cholesterol levels were well-controlled with an LDL of 59 mg/dL. The patient reports persistent leg swelling, which may be attributed to nifedipine, a medication known to cause such side effects. An ultrasound of the lower extremity was negative for deep vein thrombosis. Health Maintenance - Blood pressure management with metoprolol and nifedipine - Cholesterol management with atorvastatin, LDL goal less than 70 mg/dL - Diabetes management through diet and exercise, A1c goal below 7% - COPD management with Trelegy and albuterol - Follow-up stress test scheduled for October 25 Social History - Nutritional intake includes soda consumption, which has been recently reduced Review of Systems - Respiratory: Reports dyspnea, denies cough or wheezing - Cardiovascular: Reports leg swelling, denies chest pain - General: Reports fatigue, denies fever Physical Exam Results - Labs: Anemia with hemoglobin 10.6 g/dL, leukopenia - Imaging: Chest x-ray showing faint opacity in right upper lobe suggestive of pneumonia - Ultrasound: Negative for deep vein thrombosis Plan Patient was informed and verbally consented to the use of an ambient scribe for clinic note documentation during this visit. 1. Diabetes Mellitus The patient's diabetes is currently diet-controlled, with a recent hemoglobin A1c of 6.9%. She is advised to continue monitoring her diet and exercise to maintain glycemic control. 2. Hypercholesterolemia The patient's cholesterol levels are well-managed with atorvastatin, achieving an LDL of 59 mg/dL. The goal is to maintain LDL levels below 70 mg/dL. 3. Congestive Heart Failure The patient is on metoprolol and nifedipine for blood pressure management, which also aids in managing heart failure symptoms. 4. Chronic Obstructive Pulmonary Disease (Copd) The patient is on Trelegy and albuterol for COPD management and uses oxygen therapy as needed. 5. Hypertension The patient's hypertension is managed with metoprolol and nifedipine, with plans to adjust nifedipine dosage to reduce leg swelling. 6. Pneumonia The patient was hospitalized for pneumonia, which was identified via chest x-ray showing faint opacity in the right upper lobe. She has since recovered and is under regular follow-up care. 7. Anemia The patient has anemia with a hemoglobin level of 10.6 g/dL, requiring monitoring. 8. Leukopenia The patient has leukopenia, which will be monitored alongside her anemia. Discussion Notes During the visit, we discussed the management of the patient's chronic conditions, including diabetes, hypercholesterolemia, congestive heart failure, COPD, and hypertension. We reviewed her recent pneumonia diagnosis and hospitalization, emphasizing the importance of follow-up care. We also addressed her anemia and leukopenia, planning for ongoing monitoring. The patient was advised to continue her current medications and lifestyle modifications, with adjustments to her antihypertensive regimen to address leg swelling. Patient Instructions - Continue taking all prescribed medications as directed. - Monitor blood sugar levels and maintain a healthy diet and exercise routine. - Follow up with pulmonary care and attend the scheduled stress test on October 25. - Reduce soda intake to help manage blood sugar levels. - Report any new or worsening symptoms to the healthcare provider. Medications: New hydrochlorothiazide 12.5 mg PO DAILY 30 tabs 3RF I10 - Essential (primary) hypertension Changed From nifedipine ER 60 mg PO DAILY 30 days 90 tabs 3RF I10 - Essential (primary) hypertension To nifedipine ER 30 mg PO DAILY 30 tabs 3RF 30 days I10 - Essential (primary) hypertension
== END 2024-10-19 10:25 | disposition home or self-care (01) ==
LOC: HO.HMCH 09:52
PROVIDERS: PCP Internal Medicine; Visit Provider Internal Medicine
DX: I10 Essential (primary) hypertension (principal); E11.65 Type 2 diabetes mellitus with hyperglycemia; J43.9 Emphysema, unspecified; E66.3 Overweight; Z68.28 Body mass index [BMI] 28.0-28.9, adult; E78.00 Pure hypercholesterolemia, unspecified

== ENCOUNTER → 2024-10-19 09:51 | Outpatient (BNVA) | payer MEDICARE, SELFPAY | PROVIDERS: PCP Internal Medicine; Visit Provider Internal Medicine | DX: I11.0 Hypertensive heart disease with heart failure (principal); E11.65 Type 2 diabetes mellitus with hyperglycemia; E78.00 Pure hypercholesterolemia, unspecified; I50.9 Heart failure, unspecified; J43.9 Emphysema, unspecified; D64.9 Anemia, unspecified; D72.819 Decreased white blood cell count, unspecified; E66.3 Overweight; Z68.28 Body mass index [BMI] 28.0-28.9, adult | CPT/HCPCS: 99212 ==

== ENCOUNTER → 2024-10-25 08:08 | Outpatient (BNV) | payer MEDICARE, SELFPAY | PROVIDERS: PCP Internal Medicine | DX: R06.02 Shortness of breath (principal) | CPT/HCPCS: 78452; 93016; 93018 ==

== ENCOUNTER → 2024-10-25 08:09 | Outpatient (REF) | payer MEDICARE, SELFPAY ==
--- NOTE | ~2024-10-25 | NM_ITS ---
Lexiscan Myocardial perfusion study Indication: Congestive heart failure to evaluate for myocardial ischemia Technique: The patient was brought in for a Lexiscan perfusion study on 10/25/2024 and was injected 0.4 mg of Lexiscan intravenously. Within a minute of this injection 25 mCi of sestamibi was given intravenously. Images were obtained using the SPECT gamma camera interlaced with the gating device. Images were obtained in supine position. Resting perfusion study was performed on 10/29/2024. Patient was administered 25 mCi of sestamibi intravenously at rest. Images were then obtained in supine position. Images obtained without without CT attenuation. Total DLP 105 mGy-cm. Images were processed with the software and compared side to side in short axis, horizontal long axis and vertical long axis views. Findings: The stress perfusion study showed nonattenuated as well as attenuated corrected images show normal uptake of radiotracer in all segments of the LV myocardium. There is suggestion of left ventricular hypertrophy. The gated study shows normal LV systolic function with calculated LVEF of greater than 70%. LV cavity is normal in size. The gated study shows normal systolic wall thickening and contraction of segments. Resting study shows both attenuated as well as nonattenuated corrected images show moderately reduced uptake in the apex and distal septum of the LV myocardium. Gating at rest reveals normal systolic wall motion with ejection fraction at 73%. The findings are consistent with normal myocardial perfusion. NM/NM kayleigh perf SPECT rest & str Impression: 1. Myocardial perfusion imaging study shows normal myocardial perfusion 2. Gated LVEF is greater than 70% 3. Transient ischemic dilatation not present Nondiagnostic changes on EKG. Electronically signed by: Rolan Troy MD 10/29/2024 03:52 PM EDT
--- NOTE | 2024-10-25 08:08 | CA_ITS ---
Acquisition Time: 2024-10-25 08:19:17 Total Exercise Time: 00:02:00 Test Indications: HF Medications: ALBUTEROL ATORVASTATIN ADVAIR FUROSEMIDE METFORMIN METOPROLOL NIFEDIPINE Protocol: LEXISCAN Max HR: 107 BPM 78% of Pred: 136 BPM Max BP: 138/76 mmHG Max Work Load: 1.0 METS Pharmacological stress test with Lexiscan while pt swings her legs in chair, with reports of SOB, without any arrythmia, with normotensive response to injection. Nondiagnostic EKG for ischemia. In recovery, pt treated with IVP Aminophylline 75 mg to reverse Lexiscan after which pt slowly improved to baseline. Nuclear images pending. Test reviewed with Dr. Rojas. Referred By: Rolan Troy Electronically Signed By: Trell Olivas
== END ==
LOC: HO.CARD 08:09
PROVIDERS: PCP Internal Medicine; Visit Provider Internal Medicine Cardiovascular Disease
DX: I50.9 Heart failure, unspecified (principal)
CPT/HCPCS: 78452; 93017; A9500; J0280; J2785

== ENCOUNTER 2024-10-30 12:31 | Outpatient (AMB) | payer MEDICARE, SELFPAY ==
--- NOTE | 2024-10-30 12:41 | A.OFFVIS_ITS ---
Vital Signs 10/30/24 12:42 Height 5 ft 3 in Weight 160 lb 14.999 oz BMI 28.5 BP 120/80 Blood Pressure Location Lt brachial Position Sitting Pulse 70 Intake Visit Reasons: Follow up after testing Intake Note: Follow-up after testing feeling ok Leaf Stripper Required: No Allergies lisinopril Allergy (Unknown, Verified 10/19/24 10:03) creatinine increase HPI Comments Details: Gretchen comes for follow-up. She had a recent myocardial perfusion imaging which was within normal limits. She said she had increased leg swelling and was recently started on some new medication although she does not know the name. I see that she is both on Lasix 40 mg as well as hydrochlorothiazide. Need to be careful with electrolyte imbalance. Needs to be followed closely. Patient says she was also started on a new inhaler and that she feels extremely well with it. She denies any clear orthopnea, PND. Uses compression stockings. She says leg swelling is gradually improving. Denies any chest pain. No prolonged palpitation irregular heartbeat. [facility] Medical History Type 2 diabetes mellitus with hyperglycemia Hypertension Chronic hypoxemic respiratory failure Adrenal mass Pneumonia COPD (chronic obstructive pulmonary disease) Congestive heart failure Peripheral vascular disease Obesity (BMI 30.0-34.9) Obesity (BMI 30-39.9) Overweight (BMI 25.0-29.9) Hypercholesterolemia Surgical History No pertinent past surgical history Family History Family/Other Medical history unknown Social History Household Members: Family and Children Housing: House Do you presently have visiting nurse or other home services: No Alcohol intake: never Patient Tobacco Use Status: Former Tobacco user Tobacco use type: Cigarette e-Cigarette/Vaping Use: Never Used Second Hand Smoke Exposure: Yes service: No Current occupational status: retired Cognitive needs: No Hearing needs: No Vision needs: Yes Review of Systems Const Denies chills, Denies fatigue, Denies fever(s), Denies frequent falls, Denies weakness, Denies weight gain and Denies weight loss ENT Denies dizziness Card Denies chest pain, Denies leg edema, Denies lightheadedness, Denies palpitations, Denies dyspnea, Denies dyspnea on exertion, Denies orthopnea and Denies other (loss of consciousness) Resp Denies cough, Denies dyspnea and Denies dyspnea on exertion GI Denies hematochezia and Denies change in stool character Musc Denies abnormal gait, Denies muscle weakness, Denies numbness, Denies radiating pain into limb and Denies tingling Neuro Denies Abnormal speech present, Denies abnormal gait, Denies dizziness, Denies frequent falls, Denies numbness, Denies tingling and Denies weakness Endo Denies fatigue and Denies palpitations Physical Exam Vital Signs: Last Vital Signs Pulse 70 10/30/24 12:42 BP 120/80 10/30/24 12:42 BMI result Body Mass Index 28.5 Const General: cooperative, comfortable, no acute distress, alert and awake Nutritional Appearance: overweight Orientation/consciousness: patient oriented x3 Limitations: no limitations HEENT Head: Yes normocephalic and Yes atraumatic Neck Neck: Yes trachea midline, Yes supple and Yes no JVD Resp Effort & Inspection: normal respiratory effort Auscultation: no wheezes and diminished lung sounds Cardio Jugular venous distension: no JVD Rate: regular rate Rhythm: regular rhythm Heart sounds: S1 normal heart sound present, S2 normal heart sound present, no click, no gallops, no murmurs and no rubs GI Auscultation: normal bowel sounds Skin General skin exam: no rashes or lesions noted Neuro General: patient oriented x3 and no focal motor deficits Speech: No Abnormal speech present Extrem General: No clubbing, No cyanosis and Yes edema Assessment & Plan Assessment & Plan (1) Congestive heart failure: Code(s): I50.9 - Heart failure, unspecified Category: Medical Qualifiers: Heart failure type: unspecified Heart failure chronicity: acute Josue lified Code(s): I50.9 - Heart failure, unspecified Plan: 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 Currently using oxygen all the time and says his symptoms have significantly improved with the addition of trilogy. She is currently on Lasix and hydrochlorothiazide. I would consider discontinuing hydrochlorothiazide therapy. Continue Lasix. She does have leg edema mostly on the right side. No clear central venous congestion. Daily weight monitoring avoidance salt loading was discussed. Continue aggressive blood pressure control which is currently well optimized. Low-salt diet was discussed. She understands and agrees. Advised to call me with worsening symptoms. Follow up in the clinic in 6 months time, sooner PRN. Thank you for allowing me to partake in her care Coding Level of Care Code Est Pt Level 4 (23033) Complex EM visit Add On G2211 Diagnoses Acute congestive heart failure, unspecified heart failure type I50.9 Heart failure type: unspecified Heart failure chronicity: acute
[2024-10-30 12:42] VITALS: BP 120/80; PULSE 70; BMI 28.5
== END 2024-10-30 12:58 | disposition home or self-care (01) ==
LOC: HO.HCS 12:31
PROVIDERS: PCP Internal Medicine; Visit Provider Internal Medicine Cardiovascular Disease
DX: I50.9 Heart failure, unspecified (principal)
CPT/HCPCS: 99214; G2211

== ENCOUNTER → 2024-10-30 12:31 | Outpatient (BNVA) | payer MEDICARE, SELFPAY | PROVIDERS: PCP Internal Medicine; Visit Provider Internal Medicine Cardiovascular Disease | DX: I50.9 Heart failure, unspecified (principal); R22.40 Localized swelling, mass and lump, unspecified lower limb; E66.09 Other obesity due to excess calories; Z68.28 Body mass index [BMI] 28.0-28.9, adult; Z87.891 Personal history of nicotine dependence | CPT/HCPCS: 99212 ==